=== PATIENT | female | born 1950 | race Caucasian/White ===

== ENCOUNTER 2024-03-09 12:30 | Emergency (ER) | payer MEDICARE, SELFPAY ==
[2024-03-09] VITALS (11 sets, daily range): BP systolic 95–194; BP diastolic 50–70; PULSE 54–103; RESP 17–28; TEMP 36.6; O2SAT 94–98
--- NOTE | ~2024-03-09 | CT_ITS ---
EXAMINATION: CT brain wo con DATE: 03/09/2024 12:44 INDICATION: Right hemiparesis. Aphasia. TECHNIQUE: Computed tomography (CT) of the head was performed without intravenous contrast. The mA wa s adjusted according to patient size. Iterative reconstruction technique was employed. The dose-lengt h product was 605.33 mGy-cm. COMPARISON: None FINDINGS: There are scattered areas of low attenuation in the cerebral white matter. There is no intr acranial hemorrhage, acute infarction, or abnormal intracranial mass lesion. The ventricles are galo l in size. There are likely changes of ocular lens replacement surgeries. There is a 3 mm calcificati on involving the left optic nerve sheath. There is mild mucosal thickening in the paranasal sinuses. The mastoid air cells are normal. IMPRESSION: 1. Moderate nonspecific cerebral white matter disease, which likely represents chronic small vessel i schemic disease. Reviewed, dictated and finalized at location A. IMPRESSION: 1. Moderate nonspecific cerebral white matter disease, which likely represents chronic small vessel ischemic disease.
--- NOTE | ~2024-03-09 | CT_ITS ---
EXAMINATION: CTA brain carotid DATE: 03/09/2024 12:52 INDICATION: Right hemiparesis. Aphasia. TECHNIQUE: Computed tomographic angiography (CTA) of the head was performed with 100 mL Omnipaque-350 intravenous contrast. CTA of the neck was performed with intravenous contrast. Automated exposure co ntrol and iterative reconstruction technique were employed. The dose-length product was 1133.83 mGy-c m. Maximum intensity projection and volume rendered 3D-reconstructions were created by the technologi on a separate workstation. COMPARISON: Head CT 03/09/2024 FINDINGS: HEAD CTA: There are scattered areas of low attenuation in the cerebral white matter. There is no intr acranial hemorrhage, acute infarction, or abnormal intracranial mass lesion. The ventricles are galo l in size. There is mucosal thickening in the paranasal sinuses. There are likely changes of ocular l ens replacement surgeries. The mastoid air cells are normal. The vertebral arteries are codominant. T here is no significant stenosis of basilar artery or the posterior cerebral arteries. There is no sig nificant stenosis of the intracranial internal carotid arteries or anterior or middle cerebral arteri es. Right A1 anterior cerebral artery segment is small, a normal variant. Anterior communicating tari ry is normal. The posterior communicating arteries are normal. There is no aneurysm. NECK CTA: There is a 14 mm nodule in right thyroid lobe, likely not clinically significant. There are no pathologically enlarged lymph nodes. There is no significant stenosis of the vertebral arteries. There is plaque in the proximal internal carotid arteries. There is 0% stenosis of the proximal right internal carotid artery relative to normal distal artery lumen diameter (NASCET criteria). There is 45% stenosis of the proximal left internal carotid artery relative to normal distal artery lumen diam eter. There is mild cervical spondylosis. IMPRESSION: 1. Moderate nonspecific cerebral white matter disease, which likely represents chronic small vessel i schemic disease. 2. No aneurysm or significant intracranial arterial stenosis. 3. 0% stenosis of the proximal right internal carotid artery relative to normal distal artery lumen d iameter (NASCET criteria). 4. 45% stenosis of the proximal left internal carotid artery relative to normal distal artery lumen d iameter. Reviewed, dictated and finalized at location A. IMPRESSION: 1. Moderate nonspecific cerebral white matter disease, which likely represents chronic small vessel ischemic disease. 2. No aneurysm or significant intracranial arterial stenosis. 3. 0% stenosis of the proximal right internal carotid artery relative to normal distal artery lumen diameter (NASCET criteria). 4. 45% stenosis of the proximal left internal carotid artery relative to normal distal artery lumen diameter.
--- NOTE | ~2024-03-09 | XR_ITS ---
Portable chest x-ray Comparison: 11/18/2012 Clinical History: Right-sided weakness Findings: Probable mild central congestive change and minimal bibasilar pulmonary edema. Cardiomedi astinal silhouette is stable. Bones and soft tissues are unremarkable. Impression: Mild central congestive change and minimal bibasilar pulmonary edema. Cardiomegaly. Reviewed, dictated and finalized at [facility]. Impression: Mild central congestive change and minimal bibasilar pulmonary edema. Cardiomegaly.
--- NOTE | 2024-03-09 12:36 | ED.NEUROSD ---
HPI - Neuro Symptoms/Deficit General Chief Complaint: Suspected CVA Stated Complaint: CVA Time Seen by Provider: 03/09/24 12:36 Source: patient, family and EMS Mode of arrival: EMS Limitations: physical limitation and clinical condition History of Present Illness HPI Narrative: Patient presents as a stroke activation. Patient's last known well was 11:55 a.m. as symptoms started acutely. Patient has a baseline history of leg weakness unclear reason/etiology. No prior known TIA or CVA. Patient was getting into the car with her and was using her arms to help move her legs which is typical. She then became weak on the right side. She is on aspirin but denies any other anticoagulation. Per EMS her initial blood pressure was 200/92. She had slurred speech which they note has been slightly improving. ED fast score was 3. She seemed to have expressive aphasia per their assessment. Related Data Home Medications Medication Instructions Recorded Confirmed vit C 250 mg-vit E 90 mg-zinc 40 1 tablet PO BID 07/23/21 12/09/23 mg-copper 1 ed-dlfcgj-rwwioi capsule (PreserVision AREDS-2) Allergies Allergy/AdvReac Type Severity Reaction Status Date / Time Iaiqhsr-MPP-OeP Reductase Allergy Unknown Difficulty Verified 12/09/23 10:20 Inhibitor Swallowing [Rkheyws-Ooq-Zny Reductase Inhibitor] [facility] Past Medical History Medical History Chronic renal insufficiency, stage III (moderate) Colonoscopy refused Essential hypertension Mammogram declined Mixed hyperlipidemia Peripheral vascular disease Right hand dominant Tobacco abuse Type 2 diabetes mellitus with stage 3 chronic kidney disease, without long-term current use of insulin Vitamin D deficiency Family History Family History Other Diabetes mellitus Family history of kidney disease Hypertension Social History Social History Smoking packs per day: 0.5 Smoking cigarettes per day: 10.0 Years smoked: 54 Smoking pack-years: 27.00 Smoking status: Former smoker (Quit 10/18/2022) Tobacco type: cigarettes Second hand tobacco smoke exposure: No Alcohol intake: never Substance use: never Substance use type: does not use Lack of Transportation: No Lack of Food: Never True Current Housing: I Have Housing Concerned About Future Housing: No Difficulty Paying Gas/Electric Bills: No Difficulty Paying for Meds: No Currently Unemployed: No Education: Trade/Vocational Certificate Difficulty w/ Childcare or Family Care: No Living arrangements: with family Gender identity (if verbalized by the patient): Female Sexual Orientation (if Verbalized by the Patient): Straight or Heterosexual Spiritual care concerns: No Agree to blood products: Yes Exam Narrative: GENERAL: Well-appearing, well-nourished, and in no acute distress. HEAD: Normocephalic, atraumatic. EYES: Non injected, non icteric. Extraocular movements intact. Questionable partial hemianopia ENT: Nares clear, no rhinorrhea or epistaxis. NECK: Supple. CHEST: Speaking in full sentences. No respiratory distress. HEART: Regular rate and rhythm. . ABDOMEN: Soft, nondistended. EXTREMITIES: No edema. SKIN: Warm, dry, no rash. NEURO: Focal deficits as below. Alert and oriented. Follows commands. Some word finding difficulty. PSYCH: Normal mood and affect. Course Vital Signs Vital signs: Vital Signs Pulse Rate 100 03/09/24 12:59 Respiratory Rate 24 H 03/09/24 12:59 Blood Pressure 159/55 H 03/09/24 12:59 Pulse Oximetry 94 03/09/24 12:59 Temperature 98 F 03/09/24 13:05 Pulse Rate 54 L 03/09/24 15:57 Respiratory Rate 18 03/09/24 15:57 Blood Pressure 95/54 L 03/09/24 15:57 Pulse Oximetry 98 03/09/24 15:57 Oxygen Delivery Room Air 0
--- NOTE | 2024-03-09 12:41 | ECG_ITS ---
SEE SCANNED COPY FOR CONFIRMED REPORT MTDD
[2024-03-09 12:44] LABS: Estimated Glomerular Filt Rate 37
[2024-03-09 12:51] LABS: Basophils Percent Auto 0.4 % (0.2-1.2); Eosinophils Absolute Auto 0.2 K/mm3 (0-0.3); Eosinophils Percent Auto 1.9 % (0-4.4); Hematocrit 47.2 % (37.0-47.0); Hemoglobin 14.8 g/dL (12.0-15.0); Immature Granulocyte Absolute 0.04 K/mm3 (0.00-0.031); Immature Granulocyte Percent A 0.4 % (0-0.5); Lymphocytes Absolute Auto 2.14 K/mm3 (0.9-3.2); Lymphocytes Percent Auto 21.9 % (18.3-44.2); Mean Corpuscular HGB Conc 31.4 g/dl (32-36); Mean Corpuscular Hemoglobin 30.3 pg (26-34); Mean Corpuscular Volume 96.7 fl (80-100); Mean Platelet Volume 10.2 fl (7.4-10.4); Monocytes Absolute Auto 0.6 K/mm3 (0.1-0.6); Monocytes Percent Auto 6.4 % (2.6-8.5); Neutrophils Absolute Auto 6.7 K/mm3 (1.3-6.7); Platelet Count Result 270 k/mm3 (150-375); Red Blood Count 4.88 M/mm3 (4.2-5.4); Red Cell Distribution Width 13.2 % (11.5-14.5); White Blood Count 9.8 K/mm3 (4.5-10.0)
--- NOTE | 2024-03-09 13:40 | PC.NURSE ---
Pt blood sugar was 166 upon arrival. Taken by this RN before pt was registered.
[2024-03-09 13:54] LABS: Alanine Aminotransferase 11 U/L (6-35); Albumin Level 4.1 g/dL (3.5-5.1); Alkaline Phosphatase 87 U/L (38-126); Anion Gap 11 mmol/L (4-12); Aspartate Amino Transferase 18 U/L (14-36); Bilirubin,Total 0.3 mg/dL (0.2-1.3); Blood Urea Nitrogen 28 mg/dL (7-17); Carbon Dioxide 23 mmol/L (22-30); Chloride 106 mmol/L (98-107); Estimated CRCL calculation 39 ml/min; Estimated Glomerular Filt Rate 44; Glucose 120 mg/dL (65-110); Potassium 4.1 mmol/L (3.4-5.0); Sodium 140 mmol/L (137-145)
--- NOTE | 2024-03-09 14:03 | PC.NURSE ---
RN told by pt that she feels like she wants to say something but is unable to find the words. I ask the pt if that is correct and she says yes. Unable to give me any further information.
[2024-03-09 14:05] LABS: Prothrombin Time 13.2 Seconds (11.1-14.7)
[2024-03-09 14:06] LABS: Partial Thromboplastin Time 27.5 Seconds (22.3-36.8)
[2024-03-09 14:15] LABS: Troponin I 0.047 ng/mL (0.000-0.034)
[2024-03-09 15:23] LABS: Cholesterol 173 mg/dL (0-200); HDL Direct 38 mg/dL; Triglycerides 241 mg/dL (<150)
[2024-03-09 15:34] LABS: LDL Cholesterol Direct 104 mg/dL
[2024-03-09] MEDS: LABETALOL HCL INJ 100 MG/20 ML VIAL 20 MG IV PUSH (15:40)
--- NOTE | 2024-03-09 15:59 | PC.NURSE ---
20mg labetalol administered by another RN. Not able to scan medication at this time due to too many users being in chart. Pt transfered to air evac at this time.
[2024-03-09 16:15] LABS: Hemoglobin A1C 6.3 % (<5.7)
== END 2024-03-09 16:33 | disposition short-term general hospital (02) ==
LOC: ANHED 13:02
PROVIDERS: Emergency Provider Student in an Organized Health Care Education/Training Program; PCP Family Medicine
DX: I21.4 Non-ST elevation (NSTEMI) myocardial infarction (principal); G81.91 Hemiplegia, unspecified affecting right dominant side; I12.9 Hypertensive chronic kidney disease with stage 1 through stage 4 chronic kidney disease, or unspecified chronic kidney disease; E11.22 Type 2 diabetes mellitus with diabetic chronic kidney disease; N18.30 Chronic kidney disease, stage 3 unspecified; E78.2 Mixed hyperlipidemia; E11.51 Type 2 diabetes mellitus with diabetic peripheral angiopathy without gangrene; I73.9 Peripheral vascular disease, unspecified; E55.9 Vitamin D deficiency, unspecified; Z87.891 Personal history of nicotine dependence; Z79.82 Long term (current) use of aspirin; Z79.84 Long term (current) use of oral hypoglycemic drugs; R90.82 White matter disease, unspecified; I51.7 Cardiomegaly; I65.22 Occlusion and stenosis of left carotid artery; R94.31 Abnormal electrocardiogram [ECG] [EKG]
CPT/HCPCS: 36415; 37195; 70450; 70496; 70498; 71045; 80053; 80061; 83036; 84484; 85025; 85610; 85730; 93005; 96374; 99285; J2997; Q9967

== ENCOUNTER 2024-05-30 09:49 | Outpatient (CLI) | payer MEDICARE, SELFPAY ==
--- NOTE | 2024-05-30 09:55 | ECHO_ITS ---
Patient Info Name: Obdulia Wyatt Age: 74 years : 1950 Gender: Female Ht: 62 in Wt: 176 lbs BSA: 1.90 m2 HR: 84 bpm BP: 100 / 44 mmHg Technical Quality: Fair Exam Date: 05/30/2024 10:22 AM Exam Location: Echo Lab Patient Status: Outpatient Admit Date: 05/30/2024 Staff Ordering Physician: Kayla Wayne MD Truck Switcher: Mike Dixon RDCS Attending Provider: Kayla Wayne MD Referring Physician: Tone MORALEZ; Exam Type: CA echo doppler color flow Study Info Indications I50.9 - Heart failure, unspecified Complete two-dimensional, color flow and Doppler transthoracic echocardiogram is performed. Summary 1. Complete two-dimensional, color flow and Doppler transthoracic echocardiogram is performed. 2. Left ventricular chamber dimension is normal. 3. Left ventricular systolic function is hyperdynamic, estimated at >70%. 4. The left ventricular diastolic function is grade I diastolic dysfunction. 5. E/e' 13 is mildly elevated. 6. Left atrial chamber dimension is mildly enlarged. 7. The aortic valve is not well visualized. Cannot determine number of aortic valve leaflets. 8. There is mild aortic valve sclerosis. 9. The mitral valve has moderately calcified annulus. Left Ventricle E/e' 13 is mildly elevated. Left ventricular chamber dimension is normal. Left ventricular systolic function is hyperdynamic, estimated at >70%. The left ventricular diastolic function is grade I diastolic dysfunction. Right Ventricle Right ventricular systolic function is normal and with normal TAPSE 1.8 cm. Right ventricular chamber dimension is normal. Left Atria Left atrial chamber dimension is mildly enlarged. Right Atria Right atrial chamber dimension is normal. Aortic Valve The aortic valve is not well visualized. Cannot determine number of aortic valve leaflets. There is no aortic valve stenosis based on valve area and gradients. There is mild aortic valve sclerosis. There is no aortic valve regurgitation. Pulmonic Valve There is no pulmonic regurgitation. Mitral Valve The mitral valve has moderately calcified annulus. There is no mitral valve stenosis. There is no mitral valve regurgitation. Tricuspid Valve There is no tricuspid valve regurgitation. Pericardium/Pleural There is no pericardial effusion. Inferior Vena Cava Normal inferior vena cava with >50% collapse upon inspiration consistent with normal right atrial pressure, 5 mmHg. Aorta The aortic root size at the sinus of Valsalva is normal. Left Ventricular Outflow Tract Name Value Normal LVOT 2D LVOT Diameter 1.9 cm LVOT Doppler LVOT Peak Gradient 7 mmHg LVOT Mean Gradient 3 mmHg LVOT VTI 26 cm LVOT VTI/AV VTI Ratio 0.9 LVOT Stroke Volume 76 ml LVOT CO 6.2 l/min LVOT CI 3.3 l/min/m2 Mitral Valve Name Value Normal MV Doppler ---------
== END 2024-05-30 09:50 | disposition home or self-care (01) ==
LOC: ANHCARD 09:53
PROVIDERS: PCP Family Medicine; Visit Provider Family Medicine
DX: I35.8 Other nonrheumatic aortic valve disorders (principal); I34.81 Nonrheumatic mitral (valve) annulus calcification
CPT/HCPCS: 93306

== ENCOUNTER 2024-07-17 10:51 | Inpatient (IN) | payer MEDICARE, SELFPAY ==
[2024-07-17] VITALS (30 sets, daily range): BP systolic 123–140; BP diastolic 52–76; PULSE 69–107; RESP 18–34; TEMP 36.1–36.7; O2SAT 95–100; BMI 32.0
--- NOTE | ~2024-07-17 | US_ITS ---
EXAMINATION: US venous doppler [facility] DATE: 07/17/2024 21:33 INDICATION: Hypoxic, history VTE . TECHNIQUE: Grayscale images without and with compression and Doppler images of the bilateral lower ex tremity veins were obtained. COMPARISON: 09/05/2015, 01/25/2014 FINDINGS: The right common femoral vein, profunda (deep) femoral vein, femoral vein, popliteal vein, peroneal v ein, posterior tibial veins, and greater saphenous vein are patent. 5.8 cm mixed echogenicity fluid c ollection in the right groin. The left common femoral vein, profunda (deep) femoral vein, femoral vein, popliteal vein, peroneal v ein, posterior tibial veins, and greater saphenous vein are patent. IMPRESSION: Patent bilateral lower extremity veins. No evidence of deep venous thrombosis. 5.8 cm complex fluid collection the right groin. Reviewed, dictated and finalized at location K.
--- NOTE | ~2024-07-17 | XR_ITS ---
EXAMINATION: [id number] DATE: 07/27/2024 13:06 INDICATION: Right pleural effusion status post thoracentesis. TECHNIQUE: Frontal and lateral views of the chest were obtained. COMPARISON: Chest CT 07/17/2024, chest single view 07/17/2024 FINDINGS: There is a diffuse interstitial pattern in the lungs. There are airspace opacities in right mid and lower lung zones and left lower lung zone. There are small pleural effusions. No pneumothora x. Cardiomegaly is noted. There is an electronic implant in left anterior chest wall. There are old h ealed bilateral rib fractures. IMPRESSION: 1. Diffuse lung disease, likely a combination of mild pulmonary edema and atelectasis. Pneumonia verónica ot be excluded. 2. Small pleural effusions. 3. Cardiomegaly. Reviewed, dictated and finalized at location A. IMPRESSION: 1. Diffuse lung disease, likely a combination of mild pulmonary edema and atele ctasis. Pneumonia cannot be excluded. 2. Small pleural effusions. 3. Cardiomegaly.
--- NOTE | ~2024-07-17 | CT_ITS ---
Clinical Indication: Shortness of breath CT Scan of the Chest with Contrast: Technique: Contiguous sections were acquired throughout the chest after intravenous administration of 100 cc of Omnipaque 350. Dose reduction technique was used on this scan by utilizing automated expos ure control and iterative reconstruction technique. The dose-length product (DLP) was 1018.06 mGy-cm. Findings: There is no evidence of any significant mediastinal, hilar or axillary lymphadenopathy. There is no f illing defect in the pulmonary arterial tree to suggest pulmonary embolus. There is no evidence of ao rtic dissection or aneurysm. No pericardial effusion. Large right pleural effusion is present. There is extensive, near complete right lower lobe atelectas is, the additional partial atelectasis of the right middle and upper lobes. Small left pleural effusi on present. Possible minimal pulmonary edema. Images through the upper abdomen reveal no abnormalities. Impression: No evidence of pulmonary embolus, aortic dissection, or aortic aneurysm. Large right pleural effusion with extensive atelectatic changes, especially right lower lobe, as deta iled above. Small left pleural effusion. Possible minimal pulmonary edema. Reviewed, dictated and finalized at [facility]. Impression: No evidence of pulmonary embolus, aortic dissection, or aortic aneurysm. Large right pleural effusion with extensive atelectatic changes, especially rig ht lower lobe, as detailed above. Small left pleural effusion. Possible minimal pulmonary edema.
--- NOTE | ~2024-07-17 | XR_ITS ---
XR chest 1V portable Ordering provider: Anabella Varner III, DO History: 74 years Female with . SOB. ON BIPAP . Comparison: March 09, 2024 FINDINGS: MEDIASTINUM: The cardiac silhouette is slightly enlarged. Congestive shirley. LUNGS: No pneumothorax. Bilateral interstitial changes with opacification the right mid and lower zone. Minimal opacification the left lung base. Right-sided pleural effusion. OTHER: No free air under the diaphragm. Degenerative spine. IMPRESSION: Bilateral pneumonia with highly suggestive underlying pulmonary edema. Right pleural effusion. Reviewed, dictated and finalized at location A. IMPRESSION: Bilateral pneumonia with highly suggestive underlying pulmonary edema. Right pl eural effusion.
--- NOTE | ~2024-07-17 | US_ITS ---
EXAMINATION: US thoracentesis DATE: 07/19/2024 15:35 INDICATION: Right pleural effusion TECHNIQUE: The procedure and its risks and benefits were discussed with the patient. Potential risks discussed included bleeding, infection, and pneumothorax. The patient understood the risks and agreed to proceed. The skin was prepped and draped in sterile fashion. 1% lidocaine was used for local anes thesia. Under ultrasound guidance, a 5 Fr catheter with trochar was advanced into the right pleural e ffusion. Fluid was aspirated. The catheter was removed, and a dressing was applied. There were no imm ediate complications. FINDINGS: Ultrasound images demonstrate a small complex right pleural effusion and the catheter within the flui d. There are several subtle linear internal septations which are best appreciated on real-time imagin g. IMPRESSION: 1. Small complex right pleural effusion with successful ultrasound-guided thoracentesis yielding 800 mL of reddish-brown fluid. Reviewed, dictated and finalized at location A. IMPRESSION: 1. Small complex right pleural effusion with successful ultrasound-guided thora centesis yielding 800 mL of reddish-brown fluid.
--- NOTE | 2024-07-17 11:00 | ECG_ITS ---
Test Date: 2024-07-17 11:02:24 Measurements Intervals [place] Rate: 102 P: 37 MT: 180 QRS: 9 QRSD: 76 T: 21 QT: 330 QTc: 432 Interpretive Statements SINUS TACHYCARDIA MINIMAL Q WAVES- INFERIOR LEADS BASELINE ARTIFACT- I, II, AVR, AVL, AVF, V3 BORDERLINE ECG No previous ECG available for comparison Electronically Signed On 07-17-2024 11:05:45 CDT by Santiago Davila D.O.
--- NOTE | 2024-07-17 11:07 | ED.SOB ---
HPI - SOB/Dyspnea General Chief Complaint: Shortness of Breath/Dyspnea Stated Complaint: resp distress Time Seen by Provider: 07/17/24 10:52 History of Present Illness HPI Narrative: Pt presents with SOB for a couple of days, much worse this morning. Per EMS pt was in respiratory distress on their arrival with RA oxygen sat of 78. They placed the patient on cpap and she improved. Per EMS pt had stroke history of history of saddle PE and cardiac arrest due to the PE. Pt denies CP now and says she feels much better on the mask. Related Data Home Medications Medication Instructions Recorded Confirmed aspirin 81 mg tablet,delayed 81 mg feeding tube DAILY 05/11/24 07/17/24 release cholecalciferol (vitamin D3) 125 125 mcg PO DAILY 05/11/24 06/06/24 mcg (5,000 unit) tablet melatonin 5 mg tablet 5 mg PO HS 05/11/24 06/06/24 polyethylene glycol 3350 17 gram 17 g PO DAILY PRN Constipation 05/11/24 07/17/24 oral powder packet (Miralax) Allergies Allergy/AdvReac Type Severity Reaction Status Date / Time Gghrmct-OSW-DrI Reductase Allergy Unknown Difficulty Verified 07/17/24 11:05 Inhibitor Swallowing [Txxbjla-Axq-Sme Reductase Inhibitor] Review of Systems Review of Systems: All systems reviewed & are unremarkable except as noted in HPI and below PMFSH Past Medical History Medical History (Updated 07/17/24 @ 16:26 by Alley Brantley PA-C) Acute left ROSHAN ischemic stroke (02/2024) Resultant right hemiparesis. Cardiac arrest (03/2024) Due to massive pulmonary embolism. Cerebrovascular accident Chronic renal insufficiency, stage III (moderate) Diastolic dysfunction Hyperdynamic LV systolic function with an EF estimated at greater than 70% with grade 1 diastolic dysfunction on echo in 05/2024. Essential hypertension Mixed hyperlipidemia Peripheral vascular disease Pulmonary emboli (03/2024) Tobacco abuse Type 2 diabetes mellitus Vitamin D deficiency Surgical History Surgical History (Updated 07/17/24 @ 16:24 by Alley Brantley PA-C) History of thrombectomy (03/2024) Saddle pulmonary emboli leading to cardiac arrest. Family History Family History Other Diabetes mellitus Family history of kidney disease Hypertension Social History Social History Social History: Surrogate medical decision maker: Ankit Wyatt, spouse. Code status: Full code. Smoking packs per day: 1 Smoking cigarettes per day: 20.0 Years smoked: 57 Smoking pack-years: 57.00 Smoking status: Former smoker Tobacco type: cigarettes Second hand tobacco smoke exposure: No Smoking end date: 06/18/24 Alcohol intake: never Substance use: never Substance use type: does not use Do You Feel Safe in your Home?: Yes Lack of Transportation: No Lack of Food: Never True Current Housing: I Have Housing Concerned About Future Housing: No Difficulty Paying Gas/Electric Bills: No Difficulty Paying for Meds: No Currently Unemployed: No Education: Associate Degree Difficulty w/ Childcare or Family Care: No Additional living arrangements comments: Lives with spouse in [place]. Spiritual care concerns: No Agree to blood products: Yes Exam Const: Nutritional Appearance: obese Orientation/consciousness: patient oriented x3 Limitations: other limitations (cpap) Chest: Chest palpation & inspection: normal inspection of the chest Resp: Auscultation: diminished lung sounds Cardio: Rate: regular rate Rhythm: regular rhythm GI: GI Palp: Yes Soft to palpation and No Tenderness to palpation present (GI) Skin: General skin exam: normal color Rashes: no rashes Wounds: no wounds Neuro: General: patient oriented x3, moves all extremities and CN's II-XI intact bilaterally Cranial nerves: Yes Nystagmus not present Extrem: General: no clubbing, cyanosis or edema Ps
[2024-07-17] MEDS: IPRATROPIUM 0.5 MG/ALBUTEROL SULFATE 2.5 MG AMPUL.NEB 3 ML INHALATION ×3 (11:18→20:54)
[2024-07-17 11:28] LABS: Basophils Percent Auto 0.3 % (0.2-1.2); Eosinophils Absolute Auto 0.2 K/mm3 (0-0.3); Eosinophils Percent Auto 1.5 % (0-4.4); Hematocrit 34.1 % (37.0-47.0); Hemoglobin 10.7 g/dL (12.0-15.0); Immature Granulocyte Absolute 0.03 K/mm3 (0.00-0.031); Immature Granulocyte Percent A 0.3 % (0-0.5); Lymphocytes Absolute Auto 0.98 K/mm3 (0.9-3.2); Lymphocytes Percent Auto 9.4 % (18.3-44.2); Mean Corpuscular HGB Conc 31.4 g/dl (32-36); Mean Corpuscular Volume 86.1 fl (80-100); Mean Platelet Volume 9.7 fl (7.4-10.4); Monocytes Absolute Auto 0.4 K/mm3 (0.1-0.6); Monocytes Percent Auto 4.2 % (2.6-8.5); Neutrophils Absolute Auto 8.8 K/mm3 (1.3-6.7); Neutrophils Percent Auto 84.3 % (45.5-73.1); Platelet Count Result 350 k/mm3 (150-375); Red Blood Count 3.96 M/mm3 (4.2-5.4); Red Cell Distribution Width 15.2 % (11.5-14.5); White Blood Count 10.4 K/mm3 (4.5-10.0)
[2024-07-17 11:39] LABS: INR 1.2; Prothrombin Time 15.8 Seconds (11.1-14.7)
[2024-07-17 11:44] LABS: Alanine Aminotransferase 14 U/L (6-35); Albumin Level 3.6 g/dL (3.5-5.1); Alkaline Phosphatase 74 U/L (38-126); Anion Gap 6 mmol/L (4-12); Aspartate Amino Transferase 27 U/L (14-36); Bilirubin,Total 0.1 mg/dL (0.2-1.3); Blood Urea Nitrogen 35 mg/dL (7-17); Calcium 9.6 mg/dL (8.4-10.2); Carbon Dioxide 31 mmol/L (22-30); Chloride 99 mmol/L (98-107); Estimated CRCL calculation 26 ml/min; Estimated Glomerular Filt Rate 31; Glucose 140 mg/dL (65-110); Potassium 4.6 mmol/L (3.4-5.0); Sodium 136 mmol/L (137-145)
[2024-07-17 11:55] LABS: NT Pro B Type Natriuretic Pept 590 pg/mL (19.9-100); Troponin I < 0.012 ng/mL (0.000-0.034)
[2024-07-17] MEDS: cefTRIAXone 2 GM/NS 100 ML 2 GM/100 ML BAG IVPB (13:34)
--- NOTE | 2024-07-17 13:55 | PM.IMHP ---
H&P: HPI History of Present Illness Date/Time: 07/17/24 13:55 Chief Complaint: Shortness of breath. Narrative: This is a 74-year-old female with history of stroke with right hemiparesis, cardiac arrest secondary to massive pulmonary emboli status post thrombectomy in March 2024, hypertension, chronic kidney disease, and type 2 diabetes mellitus who presented to the emergency department via EMS from home for evaluation of shortness of breath. The patient provides the following history and her provides additional information with the patient's permission. About 3 to 4 weeks ago she developed sinus congestion, cough, and shortness of breath and was prescribed azithromycin, cefdinir, and prednisone. She improved however about a week ago she once again started to feel short of breath, worse when lying flat. has been monitoring her pulse ox and reports that it is frequently in the upper 80s to low 90s. Today it was in the upper 70s on room air and even when encouraging deep breaths, her S p.o. did not go above 80%. With further questioning the patient tells me that she has been feeling weak and tired for the last 48 hours or so and mentions that on 2 occasions within the last month that she has complained of self-limiting substernal chest pain radiating through to the back without associated symptoms. It has been over a week since the last time she complained of that. She denies fever, chills, sweats, productive cough, syncope, near syncope, current chest pain, pleuritic pain, palpitations, dysphagia, concerns for aspiration, nausea, vomiting, lower extremity edema, and calf pain. She has not had any falls or trauma. Of note the patient has tube feedings at nighttime to supplement as her appetite and taste have been poor since her stroke. In the ED: Vital signs on arrival include a temperature of 97?, blood pressure 140/76, pulse 107, respiratory rate 34, SpO2 99% on CPAP (SpO2 was 78% on room air on EMS arrival to her home). Labs were significant for WBC count of 10.4, hemoglobin 10.7, platelet 350, sodium 136, BUN 35, creatinine 1.60, glucose 140, troponin less than 0.012, proBNP 590. Chest CTA was negative for pulmonary embolus, dissection, and aneurysm but did note a large right pleural effusion with extensive atelectatic changes and small left pleural effusion with possible minimal pulmonary edema. She was given a nebulizer treatment and azithromycin and ceftriaxone for possible pneumonia and she is being admitted in this setting for further treatment and evaluation. Review of Systems Review of Systems: 12 systems were reviewed and are negative except for as per HPI. [facility] Past Medical History Medical History Acute left ROSHAN ischemic stroke (02/2024) Resultant right hemiparesis. Cardiac arrest (03/2024) Due to massive pulmonary embolism. Cerebrovascular accident Chronic renal insufficiency, stage III (moderate) Diastolic dysfunction Hyperdynamic LV systolic function with an EF estimated at greater than 70% with grade 1 diastolic dysfunction on echo in 05/2024. Essential hypertension Mixed hyperlipidemia Peripheral vascular disease Pulmonary emboli (03/2024) Tobacco abuse Type 2 diabetes mellitus Vitamin D deficiency Surgical History Surgical History History of thrombectomy (03/2024) Saddle pulmonary emboli leading to cardiac arrest. Family History Family History Other Diabetes mellitus Family history of kidney disease Hypertension Social History Social History Social History: Surrogate medical decision maker: Ankit Wyatt, spouse. Code status: Full code. Smoking packs per day: 1 Smoking cigarettes per day: 20.0 Years smoked: 57 Smoking pack-years: 57.00 Smoking statu
[2024-07-17] MEDS: AZITHROMYCIN 500 MG/NS 250 ML 500 MG/250 ML BAG 250 MG IVPB (14:03)
--- NOTE | 2024-07-17 15:43 | PM.CNPUL ---
Assessment and Plan Assessment and plan (1) Acute respiratory failure with hypoxia: Code(s): J96.01 - Acute respiratory failure with hypoxia Status: Acute Assessment and Plan: This 74-year-old female, a long-time smoker, recently experienced CVA and a month later cardiac arrest related to a massive pulmonary embolism, for which she underwent a thrombectomy. She is chronically on a direct anticoagulant and presented with shortness of breath and hypoxemia. Diagnostic studies have revealed bilateral pleural effusions, with the left pleural effusion initially detected on a chest X-ray approximately 2 months ago. The right pleural effusion is relatively new. The patient does not exhibit symptoms consistent with pneumonia or empyema and does not appear septic. The etiology of the pleural effusions could be congestive heart failure, with trauma to the right ribcage and hemothorax being less likely, given the stable hematocrit over the last 2 months. The case was discussed with the hospitalist. She will remain on BiPAP support at 18/6 and a current FiO2 of 30% while awaiting arterial blood gases. We will continue with the current antibiotic regimen and hold the direct anticoagulant as she is scheduled for thoracentesis in the morning. A lower extremity study to rule out DVT should also be ordered. Further management will be based on the results of the thoracentesis. (2) Pleural effusion on right: Code(s): J90 - Pleural effusion, not elsewhere classified Status: Acute (3) Type 2 diabetes mellitus: Code(s): E11.9 - Type 2 diabetes mellitus without complications Status: Acute (4) Cerebrovascular accident (CVA) with hemiparesis: Status: Acute (5) CHF (congestive heart failure): Code(s): I50.9 - Heart failure, unspecified Status: Acute (6) Chronic renal insufficiency, stage III (moderate): Code(s): N18.30 - Chronic kidney disease, stage 3 unspecified Status: Acute (7) History of pulmonary embolism: Code(s): Z86.711 - Personal history of pulmonary embolism Status: Acute History of Present Illness History of Present Illness Consult date: 07/17/24 Chief complaint: Pneumonia Narrative: This 74-year-old female was brought into the emergency room due to shortness of breath and hypoxemia. The patient has a significant past medical history, including diabetes mellitus, hypertension, a previous ischemic stroke in February of this year, and a cardiac arrest related to a massive pulmonary embolism for which she underwent thrombectomy at [facility]. Information for this report was gathered after reviewing the patient's chart, talking to the patient, and also speaking with her , who was present at the bedside. Reportedly, the patient was found to have low oxyhemoglobin saturation at home and also noticed some shortness of breath. She had no fever, chills, hemoptysis, chest pain, palpitations, lower extremity edema, or recent trauma. She has been on direct anticoagulants post pulmonary embolism and lives at home with her . She has an indwelling G-tube through which she receives most of her daily calories, especially at night. She also takes some p.o. without a history of choking on food or coughing spells. The patient used to smoke 1 pack per day but has not been on any medications for lung disease. An echocardiogram a couple of years ago showed left ventricular diastolic dysfunction grade 2 and mild enlargement of the left atrium. The patient has not been on any treatment for congestive heart failure. Previous chest imaging studies done approximately 2 months ago showed a small left pleural effusion but no pleural effusion on the right. The patient was placed on BiPAP support at 12/6 along with supplemental oxygen and was transferred to the IMU. Workup in the emergency room with chest CT showed a large pleural effusion on the right associated with lung atelectasis, which is new since early May, an
[2024-07-17 16:06] LABS: Base Excess ABG 5.1 mEq/l (+/-2.0); Carboxyhemoglobin 0.8 % THb (0-2.0); Fractional Inspired Oxygen 30 %; HCO3 ABG 30.4 mEq/l (22.0-26.0); Methemoglobin ABG 0.2 %THb (0-1.5); Oxygen Content ABG 14.5 %vol (16.0-22.0); Oxygen Saturation ABG 94.8 % (95.0-100.0); Oxyhemoglobin 93.3 % THb (90.0-100.0); PCO2 ABG 48.2 mmHg (35.0-45.0); PO2 ABG 73.3 mmHg (80.0-100.0); PO2 FiO2 Ratio Arterial Blood 2.44 %; Reduced Hemoglobin 5.7 %THb (0-5.0); pH ABG 7.418 (7.350-7.450)
[2024-07-17 16:07] LABS: Device NON-INVASIVE VENT; Modified Allen's Test Pass; Non-Invasive Expiratory Pressure 6 CMH2O; Non-Invasive Inspiratory Pressure 12 CMH2O; Non-Invasive Vent Rate 18 /MIN; Site Drawn RIGHT RADIAL
--- NOTE | 2024-07-17 16:23 | ADMGEN ---
This patient, Obdulia Wyatt, was admitted to IMU Room 212-01 @ 1515. Patient/family oriented to hospital policies and general routines including ID bracelet, bed and alarms, visiting hours, pain management, procedures, bathroom and other care routines, personal items, smoking policy, room service/diet, and visiting hours. pt on BIPAP- spo2 95% Information on how to activate the Rapid Response Team has been discussed. Patient/Family are encouraged to report perceived risks to care and to ask questions if they do not understand what they are told or what they should do.
[2024-07-17 17:00] LABS: INR 1.3; Prothrombin Time 16.8 Seconds (11.1-14.7)
[2024-07-17 17:01] LABS: Albumin Level 3.5 g/dL (3.5-5.1); Amylase 69 U/L (30-110); Bilirubin,Total 0.1 mg/dL (0.2-1.3); Cholesterol 159 mg/dL (0-200); Glucose 104 mg/dL (65-110); Lactate Dehydrogenase 119 U/L (120-246); Triglycerides 103 mg/dL (<150)
[2024-07-17 17:13] LABS: Glucose Point of Care 97 mg/dl (65-105)
[2024-07-17 17:14] LABS: Troponin I < 0.012 ng/mL (0.000-0.034)
[2024-07-17 17:52] LABS: Procalcitonin 0.1 ng/mL
[2024-07-17 18:02] LABS: Influenza A QL RT-PCR Negative (Negative); Influenza B QL RT-PCR Negative (Negative); RSV RNA, RT-PCR Negative (Negative); SARS-CoV-2 RNA PCR Negative (Negative)
[2024-07-17 18:37] LABS: Glucose Point of Care 116 mg/dl (65-105)
[2024-07-17 18:38] LABS: MRSA (PCR) NOT DETECTED (NOT DETECTE)
[2024-07-17 21:54] LABS: Troponin I < 0.012 ng/mL (0.000-0.034)
[2024-07-17 23:44] LABS: Glucose Point of Care 131 mg/dl (65-105)
[2024-07-18] VITALS (27 sets, daily range): BP systolic 109–135; BP diastolic 48–66; PULSE 61–89; RESP 18–23; TEMP 36.4–37.2; O2SAT 91–100
[2024-07-18] MEDS: MIRTAZAPINE 7.5 MG TABLET PO ×2 (00:44→21:09)
[2024-07-18] MEDS: TERAZOSIN HCL 1 MG CAPSULE 4 MG FEED TUBE ×2 (00:44→21:09)
[2024-07-18] MEDS: IPRATROPIUM 0.5 MG/ALBUTEROL SULFATE 2.5 MG AMPUL.NEB 3 ML INHALATION ×4 (01:46→20:33)
[2024-07-18 05:31] LABS: Hematocrit 32.9 % (37.0-47.0); Mean Corpuscular HGB Conc 30.4 g/dl (32-36); Mean Corpuscular Hemoglobin 26.9 pg (26-34); Mean Corpuscular Volume 88.4 fl (80-100); Platelet Count Result 325 k/mm3 (150-375); Red Blood Count 3.72 M/mm3 (4.2-5.4); Red Cell Distribution Width 15.5 % (11.5-14.5); White Blood Count 7.7 K/mm3 (4.5-10.0)
[2024-07-18 05:46] LABS: Anion Gap 6 mmol/L (4-12); Blood Urea Nitrogen 33 mg/dL (7-17); Calcium 9.2 mg/dL (8.4-10.2); Carbon Dioxide 32 mmol/L (22-30); Chloride 99 mmol/L (98-107); Estimated CRCL calculation 25 ml/min; Estimated Glomerular Filt Rate 29; Glucose 86 mg/dL (65-110); Magnesium 2.5 mg/dL (1.6-2.3); Potassium 4.3 mmol/L (3.4-5.0); Sodium 137 mmol/L (137-145)
--- NOTE | 2024-07-18 09:39 | PHAR ---
The patient's home med of Preservision AREDS2 vitamin has been verified.
--- NOTE | 2024-07-18 10:05 | PC.NURSE ---
Pt to ultrasound for thoracentesis via stretcher.
--- NOTE | 2024-07-18 10:29 | PC.NURSE ---
Addendum entered by Cecelia Yeh RN 07/18/24 10:30: Eliquis was not resumed with home medications. Original Note: Updated Dr. Dupree that pt had taken her Eliquis yesterday morning prior to coming to the hospital. Eliquis requires a two day hold prior to a thoracentesis. Radiologist is holding pt's procedure at this time. Eliquis placed on hold by RN per ordres
--- NOTE | 2024-07-18 10:31 | PC.NURSE ---
Pt returned from [facility] via stretcher without having procedure completed due to taking Eliquis at home prior to hospitalization. MD ruiz
[2024-07-18 11:34] LABS: Glucose Point of Care 86 mg/dl (65-105)
[2024-07-18] MEDS: FERROUS SULFATE 325 MG TABLET DR BY MOUTH (11:46)
[2024-07-18] MEDS: PRESERVISION AREDS2 1 EACH PO (11:46)
[2024-07-18] MEDS: AZITHROMYCIN 500 MG/NS 250 ML 500 MG/250 ML BAG 250 MG IVPB (11:46)
[2024-07-18] MEDS: ESCITALOPRAM OXALATE 10 MG TABLET PO (11:46)
[2024-07-18] MEDS: amLODIPine BESYLATE 10 MG TABLET PO (11:46)
--- NOTE | 2024-07-18 12:24 | PM.PNPUL ---
Progress Note: A&P Assessment and Plan (1) Pleural effusion on right: Code(s): J90 - Pleural effusion, not elsewhere classified Status: Acute (2) Acute respiratory failure with hypoxia: Code(s): J96.01 - Acute respiratory failure with hypoxia Status: Acute Assessment and Plan: 74-year-old female presented with shortness of breath and hypoxemia. She was found to have bilateral pleural effusions with the effusion the right being large and new since early May. Left pleural effusion is smaller size and was also present on abdominal CT done in early May. Patient has been on antibiotics for possible lower respiratory tract infection. She received treatment with BiPAP support currently on just supplemental oxygen. WBC back into the normal range. Patient's history in conjunction with the diagnostic studies point towards congestive heart failure as the most likely diagnosis. Plan: Await thoracentesis. Use BiPAP support on p.r.n. basis. Further recommendations depending upon the results of thoracentesis; continue with current antibiotic regimen for now. (3) Type 2 diabetes mellitus: Code(s): E11.9 - Type 2 diabetes mellitus without complications Status: Acute (4) Cerebrovascular accident (CVA) with hemiparesis: Status: Acute (5) Right hemiparesis: Code(s): G81.91 - Hemiplegia, unspecified affecting right dominant side Status: Acute (6) CHF (congestive heart failure): Code(s): I50.9 - Heart failure, unspecified Status: Acute Subjective Date/time seen: 07/18/24 12:24 Interval history: Patient stated that she is doing better. She used BiPAP support last night but currently on just supplemental oxygen. She has no fever chills hemoptysis chest pain. Review of Systems Review of Systems: All systems reviewed & are unremarkable except as noted in HPI and below (HPI and below) Exam Narrative: GENERAL APPEARANCE: Well developed, well nourished, alert and cooperative, and appears to be in mild respiratory distress while on BiPAP support SKIN: Inspection of the skin reveals no rashes, ulcerations or petechiae. HEENT: Sclerae anicteric and conjunctivae pink and moist. Extraocular movements were intact. NECK: Supple. There was no thyroid enlargement, and no tenderness, or masses were felt. CHEST: Normal AP diameter and normal contour without any kyphoscoliosis. LUNGS: Decreased breath sounds both bases posteriorly worse on right, no wheezing CARDIAC: There was a regular rate and rhythm without any murmurs. ABDOMEN: Soft and nontender with normal bowel sounds. There was no organomegaly. LYMPH NODES: No lymphadenopathy was appreciated in the neck. EXTREMITIES: No cyanosis, clubbing; old stasis dermatitis a changes in lower extremities no edema NEUROLOGIC: Alert and oriented x 3. Normal affect. Objective Data Vital Signs Vital Signs: Vital Signs - 24 hr 07/17/24 13:16 07/17/24 13:58 07/17/24 13:58 Temperature Pulse Rate 83 80 80 Respiratory Rate 24 H 22 H 19 Blood Pressure 123/69 Pulse Oximetry 97 98 Oxygen Delivery BiPAP Oxygen Flow Rate Fraction of Inspired Oxygen 07/17/24 13:58 07/17/24 12:30 07/17/24 12:45 Temperature Pulse Rate 88 83 Respiratory Rate 19 20 Blood Pressure Pulse Oximetry 98 99 99 Oxygen Delivery BiPAP Oxygen Flow Rate Fraction of Inspired Oxygen 40 07/17/24 13:16 07/17/24 13:20 07/17/24 13:31 Temperature Pulse Rate 95 83 84 Respiratory Rate 27 H 32 H 18 Blood Pressure 123/69 125/52 L Pulse Oximetry 97 98 99 Oxygen Delivery Oxygen Flow Rate Fraction of Inspired Oxygen 07/17/24 13:32 07/17/24 13:45 07/17/24 14:00 Temperature Pulse Rate 80 81 84 Respiratory Rate 25 H 18 24 H Blood Pressure Pulse Oximetry 98 99 100 Oxygen Delivery Oxygen Flow Rate Fraction of Inspired Oxygen 07/17/24 14:17 07/17/24 15:21 07/17/24 15:21 Temperature Puls
[2024-07-18 16:20] LABS: Glucose Point of Care 180 mg/dl (65-105)
--- NOTE | 2024-07-18 17:52 | PM.IMPN ---
Progress Note: A&P Assessment and Plan (1) Acute respiratory failure with hypoxia: Code(s): J96.01 - Acute respiratory failure with hypoxia Status: Acute (2) Pleural effusion on right: Code(s): J90 - Pleural effusion, not elsewhere classified Status: Acute (3) Chronic renal insufficiency, stage III (moderate): Code(s): N18.30 - Chronic kidney disease, stage 3 unspecified Status: Acute (4) Essential hypertension: Code(s): I10 - Essential (primary) hypertension Status: Acute (5) Type 2 diabetes mellitus: Code(s): E11.9 - Type 2 diabetes mellitus without complications Status: Acute (6) Diastolic dysfunction: Code(s): I51.89 - Other ill-defined heart diseases Status: Acute Plan CT chest showed a right large pleural effusion Status post thoracentesis Follow up pleural fluid studies Titrate oxygen. Slide scale insulin with Accu-Cheks and adjust with clinical course Title medications put clinical course. DVT prophylaxis subQ Lovenox. Subjective Date/time seen: 07/18/24 17:52 Interval history: Comfortable at bedside awaiting pleural fluid results Review of Systems Review of Systems: 12 systems were reviewed and are negative except for as per HPI. Exam Narrative: General: Mildly ill-appearing female in the semi-Haque position in bed on BiPAP. Weight: 79.4 kg. BMI: 32.0. HEENT: PERRL, EOMI. Sclera anicteric. Oral mucosa appears tacky through the BiPAP mask. Neck: Supple. No jugular venous distention. Respiratory: BiPAP is in place and she is tolerating it well. She is able to speak freely through the mask. Lung sounds are significantly diminished at the right base. Cardiovascular: Regular rate and rhythm with S1-S2. Gastrointestinal: Abdomen is soft, nontender, and nondistended with positive bowel sounds. Skin: Warm and dry. Extremities: No cyanosis or clubbing. Trace wander ankle edema bilaterally. No palpable knots or cords. Negative Zeny sign bilaterally. Neurological: Alert. Cranial nerves 2-12 are grossly intact. Speech is clear. Right upper extremity is weak and slightly contracted. She is unable to move the right lower leg. Psychiatric: Pleasant and cooperative with appropriate mood and affect. Objective Data Vital Signs Vital Signs: Vital Signs - 24 hr 07/17/24 20:29 07/17/24 20:54 07/17/24 20:54 Temperature 98.1 F Pulse Rate 69 88 78 Respiratory Rate 22 H 18 Blood Pressure 140/57 L Pulse Oximetry 98 96 Oxygen Delivery Nasal Cannula Oxygen Flow Rate 2 Fraction of Inspired Oxygen 28 07/17/24 21:11 07/17/24 20:30 07/17/24 20:00 Temperature Pulse Rate 79 82 Respiratory Rate 18 Blood Pressure Pulse Oximetry 95 Oxygen Delivery Nasal Cannula Oxygen Flow Rate 2 Fraction of Inspired Oxygen 07/17/24 22:00 07/17/24 23:56 07/17/24 23:00 Temperature 97.6 F Pulse Rate 79 77 Respiratory Rate 19 Blood Pressure 129/55 L Pulse Oximetry 98 98 Oxygen Delivery BiPAP Oxygen Flow Rate Fraction of Inspired Oxygen 30 07/18/24 00:00 07/18/24 01:47 07/18/24 01:49 Temperature Pulse Rate 63 63 63 Respiratory Rate 23 H 23 H Blood Pressure Pulse Oximetry 98 Oxygen Delivery BiPAP Oxygen Flow Rate Fraction of Inspired Oxygen 07/18/24 01:53 07/18/24 01:58 07/18/24 04:00 Temperature Pulse Rate 65 63 Respiratory Rate 19 Blood Pressure Pulse Oximetry 100 Oxygen Delivery BiPAP Oxygen Flow Rate Fraction of Inspired Oxygen 30 07/18/24 04:21 07/18/24 04:00 07/18/24 06:00 Temperature 97.6 F Pulse Rate 71 61 65 Respiratory Rate 21 H Blood Pressure 109/66 Pulse Oximetry 100 Oxygen Delivery Oxygen Flow Rate Fraction of Inspired Oxygen 07/18/24 05:05 07/18/24 07:29 07/18/24 07:29 Temperature Pulse Rate 69 84 Respiratory Rate 21 H 20 Blood Pressure Pulse Oximetry 99 97 Oxygen Deliver
[2024-07-19] VITALS (17 sets, daily range): BP systolic 120–140; BP diastolic 48–56; PULSE 67–91; RESP 18–20; TEMP 36.7–37.3; O2SAT 90–96
--- NOTE | 2024-07-19 | ECHO_ITS ---
Patient Info Name: Obdulia Wyatt Age: 74 years : 1950 Gender: Female Ht: 62 in Wt: 175 lbs BSA: 1.90 m2 HR: 67 bpm BP: 125 / 56 mmHg Technical Quality: Poor Exam Date: 07/19/2024 1:17 PM Exam Location: Echo Lab Patient Status: Inpatient Admit Date: 07/17/2024 Staff Ordering Physician: Nicky Dupree MD Manhole Builder: Mike Dixon RDCS Attending Provider: Jose Powers MD Exam Type: CA echo doppler color flow Study Info Indications I31.3 - Pericardial effusion (noninflammatory) Complete two-dimensional, color flow and Doppler transthoracic echocardiogram is performed. Reason for Poor Study: poor patient cooperation Summary 1. Complete two-dimensional, color flow and Doppler transthoracic echocardiogram is performed. 2. Left ventricular chamber dimension is normal. 3. Left ventricular systolic function is normal, estimated at 65-70%. 4. The left ventricular diastolic function is abnormal. 5. E/e' 23 is elevated. 6. Left atrial chamber dimension is moderately enlarged. 7. There is mild aortic valve sclerosis. 8. The mitral valve has severe calcified posterior annulus. 9. There is trivial pericardial effusion. Left Ventricle E/e' 23 is elevated. Left ventricular chamber dimension is normal. Left ventricular systolic function is normal, estimated at 65-70%. The left ventricular diastolic function is abnormal. Right Ventricle Right ventricular systolic function is normal and with normal TAPSE 2.2 cm. Right ventricular chamber dimension is normal. Left Atria Left atrial chamber dimension is moderately enlarged. Right Atria Right atrial chamber dimension is normal. Aortic Valve The aortic valve is trileaflet. There is mild aortic valve sclerosis. There is no aortic valve stenosis. There is no aortic valve regurgitation. Pulmonic Valve There is no pulmonic regurgitation. Mitral Valve The mitral valve has severe calcified posterior annulus. There is no mitral valve stenosis. There is no mitral valve regurgitation. Tricuspid Valve There is no tricuspid valve regurgitation. Pericardium/Pleural There is trivial pericardial effusion. Inferior Vena Cava Normal inferior vena cava with >50% collapse upon inspiration consistent with normal right atrial pressure, 5 mmHg. Aorta The aortic root size at the sinus of Valsalva is normal. Left Ventricular Outflow Tract Name Value Normal LVOT 2D LVOT Diameter 2.0 cm LVOT Doppler LVOT Peak Gradient 6 mmHg LVOT Mean Gradient 3 mmHg LVOT VTI 23 cm LVOT VTI/AV VTI Ratio 0.7 LVOT Stroke Volume 73 ml LVOT CO 6.2 l/min LVOT CI 3.3 l/min/m2 Pulmonic Valve Name Value Normal PV Doppler PV Peak Gradient 4 mmHg Mitral Valve
--- NOTE | 2024-07-19 00:22 | PC.NURSE ---
Patient not tolerating BiPap despite multiple attempts to reposition. RN removed BiPap and placed patient on 1LNC. RN explained to both patient and patient's that should her respiratory status decline the BiPap may become critically necessary. Both were agreeable to trying again if that became the case. RN called EDENILSON Guy to inform her of the change.
[2024-07-19 01:33] LABS: Glucose Point of Care 99 mg/dl (65-105)
[2024-07-19] MEDS: IPRATROPIUM 0.5 MG/ALBUTEROL SULFATE 2.5 MG AMPUL.NEB 3 ML INHALATION ×3 (02:03→20:40)
[2024-07-19 06:33] LABS: Glucose Point of Care 100 mg/dl (65-105)
[2024-07-19] MEDS: amLODIPine BESYLATE 10 MG TABLET PO (09:25)
[2024-07-19] MEDS: ESCITALOPRAM OXALATE 10 MG TABLET PO (09:25)
[2024-07-19] MEDS: PRESERVISION AREDS2 1 EACH PO ×2 (09:25→18:23)
[2024-07-19] MEDS: FERROUS SULFATE 325 MG TABLET DR BY MOUTH (09:25)
[2024-07-19] MEDS: AZITHROMYCIN 500 MG/NS 250 ML 500 MG/250 ML BAG 250 MG IVPB (11:57)
[2024-07-19 12:10] LABS: Iron 37 ug/dL (37-170)
[2024-07-19 12:19] LABS: Percent Iron Saturation 13 % (20-50)
[2024-07-19 12:27] LABS: Glucose Point of Care 161 mg/dl (65-105)
--- NOTE | 2024-07-19 14:20 | PC.NURSE ---
Pt to ultrasound via bed for thoracentesis
--- NOTE | 2024-07-19 14:25 | PM.IMPN ---
Progress Note: A&P Assessment and Plan (1) Acute respiratory failure with hypoxia: Code(s): J96.01 - Acute respiratory failure with hypoxia Status: Acute (2) Pleural effusion on right: Code(s): J90 - Pleural effusion, not elsewhere classified Status: Acute (3) Chronic renal insufficiency, stage III (moderate): Code(s): N18.30 - Chronic kidney disease, stage 3 unspecified Status: Acute (4) Essential hypertension: Code(s): I10 - Essential (primary) hypertension Status: Acute (5) Type 2 diabetes mellitus: Code(s): E11.9 - Type 2 diabetes mellitus without complications Status: Acute (6) Diastolic dysfunction: Code(s): I51.89 - Other ill-defined heart diseases Status: Acute Plan CT chest showed a right large pleural effusion For thoracentesis today Follow up pleural fluid studies Titrate oxygen. Slide scale insulin with Accu-Cheks and adjust with clinical course Titrate medications par clinical course. DVT prophylaxis subQ Lovenox. Subjective Date/time seen: 07/19/24 14:25 Interval history: Comfortable at bedside unable to do thoracentesis yesterday because she took her Eliquis prior to presentation and needed to be off 48 hours For thoracentesis today Review of Systems Review of Systems: 12 systems were reviewed and are negative except for as per HPI. Exam Narrative: General: Mildly ill-appearing female in the semi-Haque position in bed on BiPAP. Weight: 79.4 kg. BMI: 32.0. HEENT: PERRL, EOMI. Sclera anicteric. Oral mucosa appears tacky through the BiPAP mask. Neck: Supple. No jugular venous distention. Respiratory: BiPAP is in place and she is tolerating it well. She is able to speak freely through the mask. Lung sounds are significantly diminished at the right base. Cardiovascular: Regular rate and rhythm with S1-S2. Gastrointestinal: Abdomen is soft, nontender, and nondistended with positive bowel sounds. Skin: Warm and dry. Extremities: No cyanosis or clubbing. Trace wander ankle edema bilaterally. No palpable knots or cords. Negative Zeny sign bilaterally. Neurological: Alert. Cranial nerves 2-12 are grossly intact. Speech is clear. Right upper extremity is weak and slightly contracted. She is unable to move the right lower leg. Psychiatric: Pleasant and cooperative with appropriate mood and affect. Objective Data Vital Signs Vital Signs: Vital Signs - 24 hr 07/18/24 15:32 07/18/24 16:00 07/18/24 19:42 Temperature 98.6 F 98.9 F Pulse Rate 80 87 85 Respiratory Rate 20 20 Blood Pressure 121/48 L 135/50 L Pulse Oximetry 93 92 Oxygen Delivery Oxygen Flow Rate 07/18/24 20:33 07/18/24 20:37 07/18/24 23:12 Temperature Pulse Rate 82 73 Respiratory Rate 20 21 H Blood Pressure Pulse Oximetry 91 97 Oxygen Delivery Room Air BiPAP Oxygen Flow Rate 07/18/24 20:00 07/19/24 00:00 07/18/24 20:00 Temperature Pulse Rate 81 78 Respiratory Rate Blood Pressure Pulse Oximetry 97 Oxygen Delivery Room Air Oxygen Flow Rate 07/19/24 00:20 07/19/24 01:32 07/19/24 02:05 Temperature 98.2 F Pulse Rate 69 79 Respiratory Rate 20 20 Blood Pressure 125/56 L Pulse Oximetry 95 96 Oxygen Delivery Nasal Cannula Oxygen Flow Rate 1 07/18/24 20:41 07/19/24 02:11 07/19/24 04:00 Temperature Pulse Rate 78 68 67 Respiratory Rate 20 19 Blood Pressure Pulse Oximetry Oxygen Delivery Oxygen Flow Rate 07/19/24 07:45 07/19/24 07:45 07/19/24 07:48 Temperature 98.1 F Pulse Rate 74 82 Respiratory Rate 20 20 Blood Pressure 137/55 L Pulse Oximetry 92 92 Oxygen Delivery Nasal Cannula Oxygen Flow Rate 1 07/19/24 07:56 07/19/24 08:00 Temperature Pulse Rate 81 Respiratory Rate 20 Blood Pressure Pulse Oximetry 94 Oxygen Delivery Nasal Cannula Oxygen Flow Rate 1 Intake/Output Intake/Output: Intake & Output
--- NOTE | 2024-07-19 15:01 | PCRCNOTE ---
Pt. is off the floor for a procedure; tx not given at this time.
--- NOTE | 2024-07-19 15:19 | PC.NURSE ---
Pt returned from ultrasound via bed. No issues noted
[2024-07-19 15:25] LABS: pH Pleural Fluid > 7.500 (7.210-7.500)
[2024-07-19 15:57] LABS: Pleural fluid source Pleural fluid
[2024-07-19 15:58] LABS: Appearance Pleural Fluid Cloudy (Clear); Color Pleural Fluid Brown (Colorless); Nucleated Cell Pleural Fluid 1530 /uL (0-1000)
[2024-07-19 15:59] LABS: RBC Pleural Fluid 28000 /uL (0-10000)
[2024-07-19 16:13] LABS: Lymphocytes Pleural Fluid 74 %; Macrophages Pleural Fluid 7 %; Monocytes Pleural Fluid 15 %; Neutrophils Pleural Fluid 2 % (0-25)
[2024-07-19 16:14] LABS: Mesothelial Cells Pleural Flui 2 %
[2024-07-19 16:17] LABS: NT Pro B Type Natriuretic Pept 532 pg/mL (19.9-100)
[2024-07-19 16:28] LABS: Glucose Point of Care 102 mg/dl (65-105)
[2024-07-19 19:19] LABS: Glucose Point of Care 161 mg/dl (65-105)
[2024-07-19 20:36] LABS: Glucose Point of Care 185 mg/dl (65-105)
[2024-07-19] MEDS: INSULIN GLARGINE (*BKC) 100 UNITS/ML 15 UNITS SUB-Q (21:00)
[2024-07-19] MEDS: MIRTAZAPINE 7.5 MG TABLET PO (21:00)
[2024-07-19] MEDS: TERAZOSIN HCL 1 MG CAPSULE 4 MG FEED TUBE (21:00)
[2024-07-19] MEDS: polyethylene glycoL 3350 17 GM POWD.PACK PO (21:27)
--- NOTE | 2024-07-19 23:29 | PC.NURSE ---
2325 PT TRANSFERRED FROM IMU 212 VIA BED. AT BEDSIDE WITH PT BELONGINGS. BIPAP MACHINE ALSO BROUGHT OVER WITH PT
[2024-07-20] VITALS (13 sets, daily range): BP systolic 123–131; BP diastolic 45–50; PULSE 66–81; RESP 18–20; TEMP 36.3–36.8; O2SAT 87–94
[2024-07-20] MEDS: IPRATROPIUM 0.5 MG/ALBUTEROL SULFATE 2.5 MG AMPUL.NEB 3 ML INHALATION ×4 (02:44→21:50)
[2024-07-20 06:06] LABS: Basophils Percent Auto 0.3 % (0.2-1.2); Eosinophils Absolute Auto 0.4 K/mm3 (0-0.3); Eosinophils Percent Auto 4.9 % (0-4.4); Hematocrit 33.7 % (37.0-47.0); Immature Granulocyte Absolute 0.01 K/mm3 (0.00-0.031); Immature Granulocyte Percent A 0.1 % (0-0.5); Lymphocytes Absolute Auto 1.16 K/mm3 (0.9-3.2); Lymphocytes Percent Auto 16.2 % (18.3-44.2); Mean Corpuscular HGB Conc 29.7 g/dl (32-36); Mean Corpuscular Hemoglobin 25.8 pg (26-34); Mean Corpuscular Volume 87.1 fl (80-100); Mean Platelet Volume 9.9 fl (7.4-10.4); Monocytes Absolute Auto 0.6 K/mm3 (0.1-0.6); Monocytes Percent Auto 8.7 % (2.6-8.5); Neutrophils Percent Auto 69.8 % (45.5-73.1); Platelet Count Result 308 k/mm3 (150-375); Red Blood Count 3.87 M/mm3 (4.2-5.4); Red Cell Distribution Width 15.6 % (11.5-14.5); White Blood Count 7.1 K/mm3 (4.5-10.0)
[2024-07-20 06:24] LABS: Alanine Aminotransferase 11 U/L (6-35); Albumin Level 3.3 g/dL (3.5-5.1); Alkaline Phosphatase 61 U/L (38-126); Anion Gap 4 mmol/L (4-12); Aspartate Amino Transferase 23 U/L (14-36); Bilirubin,Total 0.2 mg/dL (0.2-1.3); Blood Urea Nitrogen 24 mg/dL (7-17); Calcium 9.2 mg/dL (8.4-10.2); Carbon Dioxide 33 mmol/L (22-30); Chloride 100 mmol/L (98-107); Estimated CRCL calculation 26 ml/min; Estimated Glomerular Filt Rate 31; Glucose 91 mg/dL (65-110); Magnesium 2.3 mg/dL (1.6-2.3); Sodium 137 mmol/L (137-145)
[2024-07-20 06:39] LABS: Anisocytosis 1+; Platelet Estimate Adequate (Adequate); Schistocytes None Seen
--- NOTE | 2024-07-20 08:35 | PM.PNPUL ---
Progress Note: A&P Assessment and Plan (1) Pleural effusion on right: Code(s): J90 - Pleural effusion, not elsewhere classified Status: Acute (2) Acute respiratory failure with hypoxia: Code(s): J96.01 - Acute respiratory failure with hypoxia Status: Acute Assessment and Plan: A 74-year-old female presented with shortness of breath and hypoxemia. She was found to have bilateral pleural effusions, with a large new effusion on the right side since early May and a smaller effusion on the left side that was also present on an abdominal CT from early May. The patient has been on antibiotics for a possible lower respiratory tract infection. She initially received BiPAP support and is currently on supplemental oxygen. Her white blood cell count has returned to the normal range. She underwent thoracentesis last night. Preliminary pleural fluid analysis shows a lymphocytic pleural effusion with a significant number of red cells; the pH is not consistent with empyema. Further testing to differentiate between transudate and exudate is pending. Based on her clinical history and preliminary pleural fluid analysis, the differential diagnosis includes congestive heart failure, previous chest trauma, complicated parapneumonic effusion related to recent lower respiratory tract infection, and less likely, malignancy. An echocardiogram performed yesterday revealed left ventricular diastolic dysfunction, as indicated by a significantly elevated E/E' ratio. The presence of bilateral pleural effusions may suggest that CHF is the underlying pathology. Conversely, the presence of septations on thoracic ultrasound may indicate previous trauma or a complicated parapneumonic effusion related to recent lower respiratory tract infection. Plan: Discontinue antibiotics at this point. The patient should restart the direct anticoagulant therapy tomorrow. Discontinue supplemental oxygen and monitor O2 saturation on room air today. May consider Cardiology consultation for left ventricular diastolic dysfunction. Conduct an ApneaLink study on room air tonight to determine if the patient requires supplemental oxygen at home. Anticipate discharge home in the morning. (3) Type 2 diabetes mellitus: Code(s): E11.9 - Type 2 diabetes mellitus without complications Status: Acute (4) Cerebrovascular accident (CVA) with hemiparesis: Status: Acute (5) Right hemiparesis: Code(s): G81.91 - Hemiplegia, unspecified affecting right dominant side Status: Acute (6) CHF (congestive heart failure): Code(s): I50.9 - Heart failure, unspecified Status: Acute Subjective Date/time seen: 07/20/24 08:35 Interval history: Patient has no new respiratory symptoms. Has been on just supplemental oxygen via nasal cannula over the last 36 hours. Not using BiPAP support remains fully awake. Review of Systems Review of Systems: All systems reviewed & are unremarkable except as noted in HPI and below (HPI and below) Exam Narrative: GENERAL APPEARANCE: Well developed, well nourished, alert and cooperative, and appears to be in mild respiratory distress while on BiPAP support SKIN: Inspection of the skin reveals no rashes, ulcerations or petechiae. HEENT: Sclerae anicteric and conjunctivae pink and moist. Extraocular movements were intact. NECK: Supple. There was no thyroid enlargement, and no tenderness, or masses were felt. CHEST: Normal AP diameter and normal contour without any kyphoscoliosis. LUNGS: Crackles at bases posteriorly worse on right, no wheezing CARDIAC: There was a regular rate and rhythm without any murmurs. ABDOMEN: Soft and nontender with normal bowel sounds. There was no organomegaly. LYMPH NODES: No lymphadenopathy was appreciated in the neck. EXTREMITIES: No cyanosis, clubbing; old stasis dermatitis a changes in lower extremities no edema NEUROLOGIC: Alert and oriented x 3. Normal affect. Objective Data
[2024-07-20 08:39] LABS: Glucose Point of Care 87 mg/dl (65-105)
[2024-07-20] MEDS: IRON SUCROSE COMPLEX 400 MG, IRON SUCROSE COMPLEX 100 MG in SODIUM CHLORIDE 0.9% IV 250 ML 78.57 MG IVPB (09:08)
[2024-07-20] MEDS: FERROUS SULFATE 325 MG TABLET DR BY MOUTH (09:08)
[2024-07-20] MEDS: amLODIPine BESYLATE 10 MG TABLET PO (09:08)
[2024-07-20] MEDS: ESCITALOPRAM OXALATE 10 MG TABLET PO (09:08)
[2024-07-20] MEDS: PRESERVISION AREDS2 1 EACH PO ×2 (09:09→16:51)
[2024-07-20] MEDS: polyethylene glycoL 3350 17 GM POWD.PACK PO (09:20)
--- NOTE | 2024-07-20 11:42 | PM.IMPN ---
Progress Note: A&P Assessment and Plan (1) Acute respiratory failure with hypoxia: Code(s): J96.01 - Acute respiratory failure with hypoxia Status: Acute Assessment and Plan: from pleural effusion CT chest showed bilateral pleural effusions markedly on the right S/P thoracentesis with 800cc removed pleural fluid showed cloudy reddish brown, with lymphocytosis and elevated RBC US thorax showed small complex right pleural effusion pH >7.5 Follow up remaining pleural fluid studies Pulmonology eval noted Cardiology for possible CHF as a etiology of the pleural effusions (2) Pleural effusion on right: Code(s): J90 - Pleural effusion, not elsewhere classified Status: Acute Assessment and Plan: continue care as above ECHO showed grade I diastolic (3) Chronic renal insufficiency, stage III (moderate): Code(s): N18.30 - Chronic kidney disease, stage 3 unspecified Status: Acute Assessment and Plan: Cr 1.6 stable (4) Essential hypertension: Code(s): I10 - Essential (primary) hypertension Status: Acute Assessment and Plan: titrate home meds with clinical course (5) Type 2 diabetes mellitus: Code(s): E11.9 - Type 2 diabetes mellitus without complications Status: Acute Assessment and Plan: SSI with accucheks, and adjust with clinical course (6) Diastolic dysfunction: Code(s): I51.89 - Other ill-defined heart diseases Status: Acute Assessment and Plan: ECHO reviewed cardiology consulted labs noted they are unable to do pleural fluid BNP awaiting cardiology eval. Plan For ApneaLink study tonight got nighttime oxygen requirement Pulmonology recommended restarting Home anticoagulation tomorrow DVT prophylaxis subQ Lovenox. Subjective Date/time seen: 07/20/24 11:42 Interval history: Comfortable on room air Pleural fluid demonstrates markedly elevated RBCs and lymphocytes, PH 7.5 and fluid cloudy brown. other pleural studies still pending US thorax showed septations Review of Systems Review of Systems: 12 systems were reviewed and are negative except for as per HPI. Exam Narrative: General: Mildly ill-appearing female in the semi-Haque position in bed on BiPAP. Weight: 79.4 kg. BMI: 32.0. HEENT: PERRL, EOMI. Sclera anicteric. Oral mucosa appears tacky through the BiPAP mask. Neck: Supple. No jugular venous distention. Respiratory: BiPAP is in place and she is tolerating it well. She is able to speak freely through the mask. Lung sounds are significantly diminished at the right base. Cardiovascular: Regular rate and rhythm with S1-S2. Gastrointestinal: Abdomen is soft, nontender, and nondistended with positive bowel sounds. Skin: Warm and dry. Extremities: No cyanosis or clubbing. Trace wander ankle edema bilaterally. No palpable knots or cords. Negative Zeny sign bilaterally. Neurological: Alert. Cranial nerves 2-12 are grossly intact. Speech is clear. Right upper extremity is weak and slightly contracted. She is unable to move the right lower leg. Psychiatric: Pleasant and cooperative with appropriate mood and affect. Objective Data Vital Signs Vital Signs: Vital Signs - 24 hr 07/19/24 16:13 07/19/24 12:00 07/19/24 20:40 Temperature Pulse Rate 87 90 Respiratory Rate 20 Blood Pressure 121/55 L Pulse Oximetry 94 91 Oxygen Delivery Nasal Cannula Oxygen Flow Rate 1 07/19/24 20:40 07/19/24 20:49 07/19/24 20:50 Temperature 99.2 F Pulse Rate 87 88 91 Respiratory Rate 20 20 20 Blood Pressure 140/56 L Pulse Oximetry 92 Oxygen Delivery Oxygen Flow Rate 07/19/24 20:00 07/19/24 23:34 07/20/24 02:55 Temperature 98.2 F Pulse Rate 79 74 Respiratory Rate 18 18 Blood Pressure 120/48 L Pulse Oximetry 92 90 Oxygen Delivery Nasal Cannula Oxygen Flow Rate 1 07/20/24 02:44 07/20/24 06:21 07/20/24 07:51 Temperature 98.2
[2024-07-20 11:48] LABS: Glucose Point of Care 145 mg/dl (65-105)
--- NOTE | 2024-07-20 12:55 | PM.CNCAR ---
Assessment and Plan Assessment and plan (1) Pleural effusion on right: Code(s): J90 - Pleural effusion, not elsewhere classified Status: Acute (2) Diastolic dysfunction: Code(s): I51.89 - Other ill-defined heart diseases Status: Acute Plan 74 yo woman with chronic kidney disease stage IIIB, previous PE status post thrombectomy, and previous stroke (right sided weakness) presented with significant shortness of breath found to have large pleural effusion sp thoracentesis now with concerns of diastolic heart failure Pleural Effusion - while she has diastolic dysfunction with elevated pressures on echocardiogram she is not clinically in heart failure - nevertheless a trial of Lasix 40 mg IV push today followed by low-dose oral Lasix 20 mg daily may help with the pleural effusion as long as renal function stays stable on this regimen please call with additional questions History of Present Illness History of Present Illness Consult date/time: 07/20/24 12:55 Requesting physician: Nicky Dupree MD Consult reason: congestive heart failure Reason For Visit: Pneumonia Narrative: 74 yo woman with previous PE and previous stroke (right sided weakness) presented with significant shortness of breath. She has been short of breath for few weeks now. She works with physical therapy and occupational therapy however has significant right-sided weakness that prevents her from ambulating independently. Thus it is difficult to determine if the symptoms are exertional in nature. Nevertheless she does not complain of any lower extremity swelling or orthopnea. She does have the sleep at a 30 degree incline due to feeding tube. She denies any orthopnea or paroxysmal nocturnal dyspnea. She denies any chest discomfort. No loss of syncope or palpitations. Review of Systems Review of Systems: All systems reviewed & are unremarkable except as noted in HPI and below PMFSH Past Medical History Medical History Acute left ROSHAN ischemic stroke (02/2024) Resultant right hemiparesis. Cardiac arrest (03/2024) Due to massive pulmonary embolism. Cerebrovascular accident Chronic renal insufficiency, stage III (moderate) Diastolic dysfunction Hyperdynamic LV systolic function with an EF estimated at greater than 70% with grade 1 diastolic dysfunction on echo in 05/2024. Essential hypertension Mixed hyperlipidemia Peripheral vascular disease Pulmonary emboli (03/2024) Tobacco abuse Type 2 diabetes mellitus Vitamin D deficiency Surgical History Surgical History History of thrombectomy (03/2024) Saddle pulmonary emboli leading to cardiac arrest. Family History Family History Other Diabetes mellitus Family history of kidney disease Hypertension Social History Social History Social History: Surrogate medical decision maker: Ankit Wyatt, spouse. Code status: Full code. Smoking packs per day: 1 Smoking cigarettes per day: 20.0 Years smoked: 57 Smoking pack-years: 57.00 Smoking status: Former smoker Tobacco type: cigarettes Second hand tobacco smoke exposure: No Smoking end date: 06/18/24 Alcohol intake: never Substance use: never Substance use type: does not use Do You Feel Safe in your Home?: Yes Lack of Transportation: No Lack of Food: Never True Current Housing: I Have Housing Concerned About Future Housing: No Difficulty Paying Gas/Electric Bills: No Difficulty Paying for Meds: No Currently Unemployed: No Education: Associate Degree Difficulty w/ Childcare or Family Care: No Additional living arrangements comments: Lives with spouse in [place]. Spiritual care concerns: No Agree to blood products: Yes Meds Home Medications and All
[2024-07-20] MEDS: AZITHROMYCIN 500 MG/NS 250 ML 500 MG/250 ML BAG 250 MG IVPB (13:08)
[2024-07-20] MEDS: ACETAMINOPHEN 325 MG TABLET 650 MG PO (13:36)
[2024-07-20] MEDS: FUROSEMIDE INJ 40 MG/4 ML VIAL IV PUSH (15:43)
[2024-07-20 17:00] LABS: Glucose Point of Care 134 mg/dl (65-105)
[2024-07-20] MEDS: TERAZOSIN HCL 1 MG CAPSULE 4 MG FEED TUBE (20:39)
[2024-07-20] MEDS: MIRTAZAPINE 7.5 MG TABLET PO (20:40)
[2024-07-20] MEDS: INSULIN GLARGINE (*BKC) 100 UNITS/ML 15 UNITS SUB-Q (21:22)
[2024-07-20 21:32] LABS: Glucose Point of Care 118 mg/dl (65-105)
[2024-07-21] VITALS (10 sets, daily range): BP systolic 124–143; BP diastolic 46–52; PULSE 68–90; RESP 18–20; TEMP 36.3–36.7; O2SAT 90–96
[2024-07-21] MEDS: IPRATROPIUM 0.5 MG/ALBUTEROL SULFATE 2.5 MG AMPUL.NEB 3 ML INHALATION ×2 (05:10→13:33)
[2024-07-21 05:47] LABS: Basophils Percent Auto 0.6 % (0.2-1.2); Eosinophils Absolute Auto 0.3 K/mm3 (0-0.3); Eosinophils Percent Auto 5.1 % (0-4.4); Hematocrit 36.4 % (37.0-47.0); Hemoglobin 11.2 g/dL (12.0-15.0); Immature Granulocyte Absolute 0.01 K/mm3 (0.00-0.031); Immature Granulocyte Percent A 0.2 % (0-0.5); Lymphocytes Absolute Auto 1.04 K/mm3 (0.9-3.2); Lymphocytes Percent Auto 16.1 % (18.3-44.2); Mean Corpuscular HGB Conc 30.8 g/dl (32-36); Mean Corpuscular Hemoglobin 26.6 pg (26-34); Mean Corpuscular Volume 86.5 fl (80-100); Mean Platelet Volume 10.2 fl (7.4-10.4); Monocytes Absolute Auto 0.6 K/mm3 (0.1-0.6); Monocytes Percent Auto 9.6 % (2.6-8.5); Neutrophils Absolute Auto 4.4 K/mm3 (1.3-6.7); Neutrophils Percent Auto 68.4 % (45.5-73.1); Platelet Count Result 319 k/mm3 (150-375); Red Blood Count 4.21 M/mm3 (4.2-5.4); Red Cell Distribution Width 15.4 % (11.5-14.5); White Blood Count 6.5 K/mm3 (4.5-10.0)
[2024-07-21 05:54] LABS: Glucose Point of Care 64 mg/dl (65-105)
[2024-07-21 05:58] LABS: Alanine Aminotransferase 11 U/L (6-35); Albumin Level 3.7 g/dL (3.5-5.1); Alkaline Phosphatase 67 U/L (38-126); Anion Gap 6 mmol/L (4-12); Aspartate Amino Transferase 22 U/L (14-36); Bilirubin,Total 0.2 mg/dL (0.2-1.3); Blood Urea Nitrogen 21 mg/dL (7-17); Calcium 9.4 mg/dL (8.4-10.2); Carbon Dioxide 33 mmol/L (22-30); Chloride 99 mmol/L (98-107); Estimated CRCL calculation 25 ml/min; Estimated Glomerular Filt Rate 29; Glucose 62 mg/dL (65-110); Magnesium 2.3 mg/dL (1.6-2.3); Potassium 3.4 mmol/L (3.4-5.0); Sodium 138 mmol/L (137-145)
[2024-07-21 06:28] LABS: Glucose Point of Care 144 mg/dl (65-105)
[2024-07-21 08:29] LABS: Glucose Point of Care 95 mg/dl (65-105)
--- NOTE | 2024-07-21 09:10 | PM.PNPUL ---
Progress Note: A&P Assessment and Plan (1) Pleural effusion on right: Code(s): J90 - Pleural effusion, not elsewhere classified Status: Acute (2) Acute respiratory failure with hypoxia: Code(s): J96.01 - Acute respiratory failure with hypoxia Status: Acute Assessment and Plan: A 74-year-old female presented with shortness of breath and hypoxemia. She was found to have bilateral pleural effusions, with a large new effusion on the right side since early May and a smaller effusion on the left side that was also present on an abdominal CT from early May. The patient has been on antibiotics for a possible lower respiratory tract infection. She initially received BiPAP support and is currently on supplemental oxygen. Her white blood cell count has returned to the normal range. She underwent thoracentesis two days ago. Preliminary pleural fluid analysis shows a lymphocytic pleural effusion with a significant number of red cells; the pH is not consistent with empyema. Further testing to differentiate between transudate and exudate is pending. Based on her clinical history and preliminary pleural fluid analysis, the differential diagnosis includes congestive heart failure, previous chest trauma, complicated parapneumonic effusion related to recent lower respiratory tract infection, and less likely, malignancy. An echocardiogram performed yesterday revealed left ventricular diastolic dysfunction, as indicated by a significantly elevated E/E' ratio. The presence of bilateral pleural effusions may suggest that CHF is the underlying pathology. Conversely, the presence of septations on thoracic ultrasound may indicate previous trauma or a complicated parapneumonic effusion related to recent lower respiratory tract infection. ApneaLink last night showed no evidence of oxyhemoglobin desaturation on supplemental oxygen at 2 liters/minute. Pleural fluid test still pending. Patient started on a diuretic by Cardiology Services. The patient is cleared for discharge to home. She will need a home oxygen evaluation and should continue with the recommended oxygen flow during the day, as well as 2 liters/minute of oxygen at night. The patient will continue her prescribed direct anticoagulant therapy. It is important for her to continue using incentive spirometry at home. I have provided her with a business card to schedule an appointment with me at the outpatient pulmonary clinic. Please feel free to call with any questions. (3) Type 2 diabetes mellitus: Code(s): E11.9 - Type 2 diabetes mellitus without complications Status: Acute (4) Cerebrovascular accident (CVA) with hemiparesis: Status: Acute (5) Right hemiparesis: Code(s): G81.91 - Hemiplegia, unspecified affecting right dominant side Status: Acute (6) CHF (congestive heart failure): Code(s): I50.9 - Heart failure, unspecified Status: Acute Subjective Date/time seen: 07/21/24 09:10 Interval history: Patient has no new respiratory issues. Able to cough up clear phlegm following thoracentesis. She had some issues related to her blood sugar last p.m.. Underwent ApneaLink study on oxygen 2 liters/minute last night. Remains on oxygen via nasal cannula using low-flow. Review of Systems Review of Systems: All systems reviewed & are unremarkable except as noted in HPI and below (H&P and below) Exam Narrative: GENERAL APPEARANCE: Well developed, well nourished, alert and cooperative, and appears to be in mild respiratory distress while on N/C SKIN: Inspection of the skin reveals no rashes, ulcerations or petechiae. HEENT: Sclerae anicteric and conjunctivae pink and moist. Extraocular movements were intact. NECK: Supple. There was no thyroid enlargement, and no tenderness, or masses were felt. CHEST: Normal AP diameter and normal contour without any kyphoscoliosis. LUNGS: Crackles at bases posteriorly worse on right, no wheezing CARDIA
[2024-07-21] MEDS: FUROSEMIDE 20 MG TABLET PO (09:15)
[2024-07-21] MEDS: FERROUS SULFATE 325 MG TABLET DR BY MOUTH (09:15)
[2024-07-21] MEDS: ESCITALOPRAM OXALATE 10 MG TABLET PO (09:16)
[2024-07-21] MEDS: amLODIPine BESYLATE 10 MG TABLET PO (09:16)
[2024-07-21] MEDS: IRON SUCROSE COMPLEX 400 MG, IRON SUCROSE COMPLEX 100 MG in SODIUM CHLORIDE 0.9% IV 250 ML 78.57 MG IVPB (10:20)
--- NOTE | 2024-07-21 11:41 | PM.DS ---
DS: Admitting Diagnosis Discharge Date 07/21/24 Admitting Diagnosis SOB DS: Discharge Diagnosis Discharge Diagnosis (1) Diastolic dysfunction: Code(s): I51.89 - Other ill-defined heart diseases Status: Acute (2) Pleural effusion on right: Code(s): J90 - Pleural effusion, not elsewhere classified Status: Acute (3) Acute respiratory failure with hypoxia: Code(s): J96.01 - Acute respiratory failure with hypoxia Status: Acute DS: Summary Hospital Course Hospital Course: This is a 74-year-old female with history of stroke with right hemiparesis, cardiac arrest secondary to massive pulmonary emboli status post thrombectomy in March 2024, hypertension, chronic kidney disease, and type 2 diabetes mellitus who presented to the emergency department via EMS from home for evaluation of shortness of breath. The patient provides the following history and her provides additional information with the patient's permission. About 3 to 4 weeks ago she developed sinus congestion, cough, and shortness of breath and was prescribed azithromycin, cefdinir, and prednisone. She improved however about a week ago she once again started to feel short of breath, worse when lying flat. has been monitoring her pulse ox and reports that it is frequently in the upper 80s to low 90s. Today it was in the upper 70s on room air and even when encouraging deep breaths, her S p.o. did not go above 80%. With further questioning the patient tells me that she has been feeling weak and tired for the last 48 hours or so and mentions that on 2 occasions within the last month that she has complained of self-limiting substernal chest pain radiating through to the back without associated symptoms. It has been over a week since the last time she complained of that. She denies fever, chills, sweats, productive cough, syncope, near syncope, current chest pain, pleuritic pain, palpitations, dysphagia, concerns for aspiration, nausea, vomiting, lower extremity edema, and calf pain. She has not had any falls or trauma. Of note the patient has tube feedings at nighttime to supplement as her appetite and taste have been poor since her stroke. In the ED: Vital signs on arrival include a temperature of 97?, blood pressure 140/76, pulse 107, respiratory rate 34, SpO2 99% on CPAP (SpO2 was 78% on room air on EMS arrival to her home). Labs were significant for WBC count of 10.4, hemoglobin 10.7, platelet 350, sodium 136, BUN 35, creatinine 1.60, glucose 140, troponin less than 0.012, proBNP 590. Chest CTA was negative for pulmonary embolus, dissection, and aneurysm but did note a large right pleural effusion with extensive atelectatic changes and small left pleural effusion with possible minimal pulmonary edema. She was given a nebulizer treatment and azithromycin and ceftriaxone for possible pneumonia and she is being admitted in this setting for further treatment and evaluation. Patient underwent for thoracentesis and fluid showed reddish brown with elevated RBC, and pH >7.5. SOB was markefly improved and patient came off oxygen. overnight ApneaLink by Pulmonology showed patient needing nighttime oxygen. Pulmonolog will follow up outpatient for the remainder of pleural fluid studies US thorax showed thorax showed small complex right pleural effusion. ECHo showed grade I diastolic dysfunction and possible cause of pleural effusion. Cardiology was consulted adn patient was tarted on lasix by cardiology. Patient was started on lasix 20mg daily. Iron deficiency with isat 13 patient received 1000mg. she will continue to follow up with PCP. F/u with PCP in 3-5 days, cardiology and pulmonology as instructed. Assessment and Plan (1) Acute respiratory failure with hypoxia: Code(s): J96.01 - Acute respiratory failure with hypoxia Status: Acute Assessment and Plan: from pleural effusion CT chest showed bilateral pleural effusions markedly on
[2024-07-21 11:59] LABS: Glucose Point of Care 121 mg/dl (65-105)
[2024-07-21] MEDS: AZITHROMYCIN 250 MG TABLET 500 MG PO (12:54)
[2024-07-21] MEDS: AMOXICILLIN/CLAVULANATE K 500-125 MG TAB 1 TABLET PO (12:55)
--- NOTE | 2024-07-21 14:14 | PCPTNOTE ---
Will hold on therapy order as patient is to be discharged this afternoon.
--- NOTE | 2024-07-21 14:17 | PCOTNOTE ---
Pt to discharge home this afternoon and resume home health therapy so OT evaluation no required at this time.
[2024-07-25 20:19] LABS: Albumin Pleural Fluid 1.9 g/dL; Glucose Pleural Fluid 132 mg/dL; LDH Pleural Fluid 162 U/L; Total Protein Pleural Fluid 4.1 g/dL
== END 2024-07-21 16:10 | disposition home health service (06) | DRG 186 ==
LOC: ANHED 11:07 → ANHIMU 14:19 → ANH2MED 07-19 23:29
PROVIDERS: Physician Assistant; Admitting Provider General Practice; Emergency Provider Emergency Medicine; PCP Family Medicine; Visit Provider Internal Medicine
DX: J90 Pleural effusion, not elsewhere classified (principal); J96.01 Acute respiratory failure with hypoxia; I69.351 Hemiplegia and hemiparesis following cerebral infarction affecting right dominant side; I51.89 Other ill-defined heart diseases; I12.9 Hypertensive chronic kidney disease with stage 1 through stage 4 chronic kidney disease, or unspecified chronic kidney disease; N18.30 Chronic kidney disease, stage 3 unspecified; E11.22 Type 2 diabetes mellitus with diabetic chronic kidney disease; E11.51 Type 2 diabetes mellitus with diabetic peripheral angiopathy without gangrene; E78.2 Mixed hyperlipidemia; E55.9 Vitamin D deficiency, unspecified; Z20.822 Contact with and (suspected) exposure to COVID-19; Z87.891 Personal history of nicotine dependence; Z86.711 Personal history of pulmonary embolism; Z86.74 Personal history of sudden cardiac arrest; Z79.82 Long term (current) use of aspirin; Z93.1 Gastrostomy status
CPT/HCPCS: 32555; 36415; 36600; 71045; 71275; 80048; 80053; 82040; 82042; 82150; 82247; 82375; 82465; 82728; 82805; 82810; 82945; 82947; 82948; 83050; 83540; 83550; 83615; 83735; 83880; 83986; 84145; 84155; 84157; 84311; 84478; 84484; 85018; 85025; 85027; 85610; 85730; 86140; 87040; 87070; 87075; 87205; 87637; 87641; 88108; 88305; 89051; 93005; 93306; 93970; 94002; 94003; 94618; 94640; 94762; 99285; A9270; J0456; J0696; J1756; J1815; J1940; J7050; Q9967

== ENCOUNTER 2024-08-02 12:27 | Outpatient (CLI) | payer MEDICARE, SELFPAY ==
--- NOTE | ~2024-08-02 | XR_ITS ---
EXAMINATION: XR chest 2V DATE: 08/02/2024 12:51 INDICATION: Pleural effusion TECHNIQUE: frontal and lateral views of the chest were obtained. COMPARISON: Chest CT dated 07/17/2024 FINDINGS: Opacities at the posterior lower lung zones with blunting at the right costophrenic angle and bilater al posterior sulci consistent with small bilateral pleural effusions and associated posterior basilar atelectasis versus pneumonia. No pneumothorax. Cardiomegaly. Left pectoral implantable cardiac monit or. Old bilateral rib fractures. IMPRESSION: 1. Small bilateral pleural effusions with posterior basilar atelectasis versus less likely pneumonia. Reviewed, dictated and finalized at location A.
== END 2024-08-02 12:28 | disposition home or self-care (01) ==
PROVIDERS: PCP Family Medicine; Visit Provider Internal Medicine Pulmonary Disease
DX: J90 Pleural effusion, not elsewhere classified (principal)
CPT/HCPCS: 71046

== ENCOUNTER 2025-03-07 00:20 | Day surgery (SDC) | payer MEDICARE, SELFPAY ==
[2025-03-06 11:24] VITALS: BMI 28.2
--- OUTSIDE RECORDS SUMMARY | 2025-03-07 00:23 | XMS_ITS | Referral Summary ---
Author Organization [place] [id number] Address [address] [facility] [address] [place] [address] Care Team Providers Care Bookkeeping Assistant Name Role Phone Kayla Wayne MD Primary Care Provider Encounters Date Type Department Care Team Description 03/01/2025 Orders Only [facility] [address] [place] [address] [place] [id number] Mike Tang MD History of stroke (Primary Dx); History of loop recorder 02/19/2025 Telephone [facility] [address] [place] [address] [address] [place] [address] Mike Tang MD 02/14/2025 1:15 PM CDT Office Visit [facility] Cardiology at [address] [place] [address] Mike Tang MD History of stroke (Primary Dx); History of cardiac arrest; History of pulmonary embolism; Stage 3 chronic kidney disease, unspecified whether stage 3a or 3b CKD (HCC); Hypertension associated with diabetes (HCC); Hyperlipidemia associated with type 2 diabetes mellitus (HCC); History of tobacco use 01/16/2025 Telephone [facility] Card[facility] [address] [place] [address] [place] [phone] Mike Tang MD from Last 3 Months Allergies Active Allergy Reactions Criticality Noted Date Comments Hamircs-Ogm-Koq Reductase Inhibitors Other (See comments) 04/14/2024 Patient states doesn't tolerate statins legs got rash and cracked. Makes head muddy Medications amLODIPine (NORVASC) 10 mg tablet Take 1 tablet (10 mg total) by mouth daily 4 Active escitalopram (LEXAPRO) 20 mg tablet Take 1 tablet (20 mg total) by mouth daily 4 Active aspirin (Aspirin Childrens) 81 mg chewable tablet Take 1 tablet (81 mg total) by mouth daily 4 Active apixaban (ELIQUIS) 5 mg tablet Administer 1 tablet (5 mg total) per feeding tube 2 (two) times a day 4 Active vit C,U-Ss-axdbe-leona tein-zeaxan (PreserVision AREDS-2) 250-90-40-1 mg capsule 1 capsule 2 TIMES DAILY (route: oral) 4 Active mirtazapine (REMERON) 7.5 mg tablet Take 1 tablet (7.5 mg total) by mouth nightly 4 Active terazosin (HYTRIN) 1 mg capsule Take 4 capsules (4 mg total) by mouth nightly Active polyethylene glycol (MIRALAX) 17 gram packet Administer 1 packet (17 g total) per feeding tube daily as needed 4 Active Active Problems Problem Noted Date Diagnosed Date History of tobacco use 02/14/2025 Hyperlipidemia associated with type 2 diabetes m ellitus 02/14/2025 Hypertension associated with diabetes 02/14/2025 Stage 3 chronic kidney disease 02/14/2025 History of pulmonary embolism 02/14/2025 History of cardiac arrest 02/14/2025 History of stroke 02/14/2025 Social History Tobacco Use Types Packs/Day Years Used Date Smoking Tobacco: Former Cigarettes Smokeless Tobacco: Never Tobacco Cessation:Counseling Given: Not Answered Comments Unknown Sex and Gender Information Value Date Recorded Sex Assigned at Not on file 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 Gender Identity Not on file Sexual Orientation Not on file Last Filed Vital Signs Vital Sign Reading Time Taken Comments Blood Pressure 138/72 02/14/2025 1:22 PM CDT Pulse 63 02/14/2025 1:22 PM CDT Temperature - - Respiratory Rate - - Oxygen Saturation 95% 02/14/2025 1:22 PM CDT Inhaled Oxygen Concentration - - Weight - - Height - - Body Mass Index - - Plan of Treatment Not on file Procedures Procedure Name Priority Date/Time Associated Diagnosis Comments ECG 12-LEAD Routine 02/14/2025 3:33 PM CDT History of stroke from Last 3 Months Results * ECG 12 lead (02/14/2025 3:33 PM CDT) us Mike Tang MD ECG ORDERABLES Final Res ult from Last 3 Months Insurance [employer] MEDICARE GOLD [employer] MED[employer]ARE GOLD Care Teams Bookkeeping Assistant Relationship Specialty Start Date End Date Kayla Wayne MD PCP - General Family Medicine 02/16/23
--- OUTSIDE RECORDS SUMMARY | 2025-03-07 00:23 | XMS_ITS | Clinical Summary ---
Author Organization [facility] Address [address] [place] [address] Care Team Providers Care Bargain Table Clerk Name Role Phone Kayla Wayne MD Primary Care Provider [phone] Allergies Active Allergy Reactions Criticality Noted Date Comments Mwpsvgo-Aeg-Ifd Reductase Inhibitors Other (See Comments) 04/14/2024 Patient states doesn't tolerate statins legs got rash and cracked. Makes head muddy Medications amLODIPine (NORVASC) 10 mg tablet Take 1 Tablet by mouth daily. 4 Active Eliquis 5 mg tablet Take 5 mg by mouth 2 times daily. Active aspirin (SKYLER CHEWABLE) 81 mg Tablet, Chewable Take 81 mg by mouth daily. Active OneTouch Verio test strips Strip USE TO TEST BLOOD SUGAR 3 TIMES A DAY DIRECTED 4 Active Lantus Solostar U-100 Insulin 100 unit/mL (3 mL) solution for injection 15 UNIT (0.15 ML) SUBCUTANEOUSLY EVERY DAY AT BEDTIME Active metFORMIN (GLUCOPHAGE) 500 mg tablet Take 500 mg by mouth 2 times daily. Active mirtazapine (REMERON) 7.5 mg tablet Take 7.5 mg by mouth. 4 Active terazosin (HYTRIN) 1 mg capsule Take 1 mg by mouth daily. 4 Active sennosides-doc usate sodium (SENNA-S) 8.6-50 mg tablet 1 Tablet by Feeding Tube route 1 time daily as needed. 4 Active polyethylene glycol (MIRALAX) 17 gram Powder in Packet 17 Grams by Feeding Tube route 1 time daily as needed. 4 Active Active Problems No known active problems Encounters Date Type Department Care Team Description 03/06/2025 External Device Data ST[facility] ABSTRACTION Provider, Abstract 01/03/2025 External Device Data STL ABSTRACTION Provider, Abstract 12/23/2024 External Device Data [facility] ABSTRACTION Provider, Abstract 12/22/2024 External Device Data [facility] ABSTRACTION Provider, Abstract 12/19/2024 External Device Data [facility] ABSTRACTION Provider, Abstract from Last 3 Months Family History Medical History Relation Name Comments No Known Problems Child 1 50 No Known Problems Child 2 47 Stomach Cancer Father No Known Problems Mother Relation Name Status Comments Child 1 50 Alive Child 2 47 Alive Father Mother Social History Tobacco Use Types Packs/Day Years Used Date Smoking Tobacco: Former Cigarettes 1 57 Q uit: 03/09/2024 Alcohol Use Standard Drinks/Week Comments Never 0 (1 standard drink = 0.6 oz pur e alcohol) Comments Unknown Sex and Gender Information Value Date Recorded Sex Assigned at Not on file Legal Sex Female 3:04 PM CDT Gender Identity Not on file Sexual Orientation Not on file Last Filed Vital Signs Vital Sign Reading Time Taken Comments Blood Pressure 125/58 08/17/2024 1:50 PM CDT Pulse 73 08/17/2024 1:50 PM CDT Temperature 36.7 C (98 F) 08/17/2024 1:50 PM CDT Respiratory Rate - - Oxygen Saturation 96% 08/17/2024 1:50 PM CDT Inhaled Oxygen Concentration - - Weight - - Height 157.5 cm (5' 2 ) 08/17/2024 1:50 PM CDT Body Mass Index - - Plan of Treatment Upcoming Encounters Date Type Department Care Team (Late st Contact Info) Description 03/29/2025 2:30 PM CDT Office Visit [facility] On[facility] and Hematology - [place] [address] [place] [address] Samuel Spivey MD [address] [place] [address] Health Maintenance Due Date Last Done Comments DIABETES ANNUAL FOOT EXAM 1967 DIABETES ANNUAL RETINAL EXAM 1967 DIABETES MICROALBUMIN ANNUAL SCREEN 1967 LDL CHOLESTEROL ANNUAL 1967 DTAP/TDAP/TD VACCINES (1 - Tdap) 01/11/1968 PNEUMOCOCCAL VACCINE 50+ YEA RS (1 of 2 - PCV) 01/11/1968 Lung Cancer Screening 1999 ZOSTER VACCINE (1 of 2) 1999 OSTEOPOROSIS SCREENING 2014 RSV VACCINE (60+ or ) (1 - 1-dose 75+ series) 01/11/2024 INFLUENZA VACCINE (#1) 2024 DIABETES HBA1C Q 6 MONTHS 09/10/2024 03/10/2024, [facility] Care Teams Bargain Table Clerk Relationship Specialty Start Date End Date Kayla Wayne MD [address] [place] [phone] PCP - General Family Practice 08/18/24
--- OUTSIDE RECORDS SUMMARY | 2025-03-07 00:23 | XMS_ITS | Clinical Summary ---
Author Organization [facility] [employer] Address [address] [place] [address] Care Team Providers Care Skin Diver Name Role Phone Unavailable Primary Care Provider Unavailabl e Source Comments [facility] [employer],non-owned Affiliates and Associated Physician Practices is amultiple site organization consisting of ambulatory clinics and hospital sitesin [place], [place] and [place]. This disclosure is being madepursuant to the Care Everywhere program and may not contain all information available regarding this patient. Last updated 18.[facility] [employer] Allergies Active Allergy Reactions Criticality Noted Date Comments Hmg-Coa-R Inhibitors Unknown 03/10/2024 Causes her legs to be restless, per . Medications * Be aware that medications may not be up to date on this document. Alwaysverify current medications with the patient. aspirin (Aspirin) 81 MG chew tablet Take 1 (one) tablet by mouth once daily Active vitamin D, ergocalciferol , (Drisdol) 1.25 MG (94474 UT) capsule Take 1 (one) capsule by mouth every 14 days Active metFORMIN (Glucophage) 500 MG tablet Take 1 (one) tablet by mouth 2 times daily with morning and evening meal Active pentoxifylline CR (TRENtal) 400 MG tablet Take 1 (one) tablet by mouth once daily Active pitavastatin (Livalo) 1 MG tablet Take 1 (one) tablet by mouth once daily Active acetaminophen (Tylenol) 325 MG tablet 2 (two) tablets by Enteral Tube route every 4 hours as needed Maximum allowable Acetaminophen amount = 4 Grams (4000 mg) / 24 hours. 4 Active apixaban (Eliquis) 5 MG tablet 1 (one) tablet by Enteral Tube route 2 times daily 4 Active insulin glargine (Lantus/Semgle e) 100 units/mL pen Inject 16 (sixteen) Units subcutaneously once daily 4 Active polyethylene glycol 3350 (Miralax) 17 g packet 17 (seventeen) g by Enteral Tube route once daily as needed for Constipation 4 Active senna-docusate (Senokot-S) 8.6-50 MG tablet 1 (one) tablet by Enteral Tube route once daily as needed for Constipation 4 Active chlorhexidine (Peridex) 0.12 % solution Swish and spit 15 mL 2 times daily 4 Active amLODIPine (Norvasc) 10 MG tablet Take 1 (one) tablet by mouth once daily Active escitalopram (Lexapro) 10 MG tablet Take 1 (one) tablet by mouth once daily Active ARIPiprazole (Abilify) 10 MG tablet Take 1 (one) tablet by mouth once daily Active Multiple Vitamins-Music Sound Light Technician als (PreserVision AREDS 2) capsule Take 2 (two) capsules by mouth 2 times daily Active terazosin (Hytrin) 5 MG capsule Take 1 (one) capsule by mouth once daily Active Active Problems Problem Noted Date Diagnosed Date Acute ischemic stroke 04/12/2024 Acute kidney injury 04/12/2024 Type 2 diabetes mellitus 04/12/2024 Cardiac arrest 03/22/2024 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 Cardiogenic shock 03/22/2024 Dysarthria 03/09/2024 Weakness 03/09/2024 Right sided weakness 03/09/2024 S/P admn tPA in diff fac w/n last 24 hr bef adm to crnt fac 03/09/2024 Encounters Date Type Department Care Team Description 02/01/2025 1:10 AM CDT Clinical Support [facility] - Cardiology [address], [facility] [address] [place] [address] Acute ischemic stroke (HCC) 01/08/2025 Telephone [facility] - Cardiology [address] [facility], [facility] [address] [place] [address] Alyssa Parks RN Loop Recorder 12/28/2024 1:10 AM CDT Clinical Support [facility] - Cardiology [address] [facility], [facility] [address] [place] [address] Acute ischemic stroke from Last 3 Months Social History Tobacco Use Types Packs/Day Years Used Date Smoking Tobacco: Every Day Cigarettes Tobacco Cessation:Ready to Q uit: Not Asked Alcohol Use Standard Drinks/Week Comments Never 0 (1 standard drink = 0.6 oz pur e alcohol) AUDIT-C Answer Date Recorded Q1: How often do you have a drink containing alcohol? Never 03/09/2024 Q2: How many drinks containi ng alcohol do you have on a typical day when you are drinking? Patient does not drink Q3: How often do you have si x or more drinks on one occasion? Never 03/09/2024 PHQ-2 Answer Date Recorded Patient Health Questionnaire-2 Score 5 04/10/2024 Comments Unknown Sex and Gender Information Value Date Recorded Sex Assigned at Not on file Legal Sex Female 3:40 PM CDT Gender Identity Not on file Sexual Orientation Not on file Last Filed Vital Signs Vital Sign Reading Time Taken Comments Blood Pressure 106/61 09/28/2024 11:56 AM ROUTE RIDER SUPERVISOR Pulse 64 09/28/2024 11:56 AM ROUTE RIDER SUPERVISOR Temperature 36.4 C (97.5 F) 09/28/2024 11:56 AM ROUTE RIDER SUPERVISOR Respiratory Rate 18 09/28/2024 11:5 6 AM ROUTE RIDER SUPERVISOR Oxygen Saturation 98% 09/28/2024 11: 56 AM ROUTE RIDER SUPERVISOR Inhaled Oxygen Concentration 30% 03/28/2024 8 :27 AM CDT Weight 95.1 kg (209 lb 11.2 oz) 024 11:56 AM ROUTE RIDER SUPERVISOR Height 170.2 cm (5' 7 ) 09/28/2024 11:5 6 AM ROUTE RIDER SUPERVISOR Body Mass Index 32.84 09/28/2024 11:56 AM ROUTE RIDER SUPERVISOR Plan of Treatment Health Maintenance Due Date Last Done Comments BONE DENSITY TESTING 1950 HEPATITIS C SCREENING 01/06/1967 DTAP/TDAP/TD VACCINES (1 - Tdap) 01/11/1968 PNEUMOCOCCAL VACCINE 50+ (1 of 2 - PCV) 01/11/1968 ZOSTER VACCINE (1 of 2) 1999 Respiratory Syncytial Virus (RSV) Vaccine Pt: or over 60 yrs (1 - 1-dose 75+ series) 01/11/2024 DIABETES RETINOPATHY SCREENING 04/12/2024 DIABETES-FOOT EXAM WITH MONOFILAMENT 04/12/2024 COVID-19 VACCINE ( season) 2024 08/19/2022, 03/17/2022, 08/26/2021, Additional history exists DIABETES-HGB A1C 09/09/2024 03/09/2024 DEPRESSION SCREENING 10/18/2024 03/15/2024 DIABETES - URINE PROTEIN SCREENING 10/18/2024 MEDICARE AW CALENDAR YEAR 2024 DIABETES-SERUM CREATININE 04/03/20252023, 04/02/2024, 04/01/2024, Additional history exists INFLUENZA VACCINE (Season Ended) 2025 07/23/2023, 07/14/2022, 07/07/2021, Additional history exists HEPATITIS B VACCINE Aged Out No longe r eligible based on patient's age to complete this topic HIB VACCINE Aged Out No longer eligi ble based on patient's age to complete this topic HPV VACCINE Aged Out No longer eligi ble based on patient's age to complete this topic MENINGOCOCCAL (Group B) VACCINE SHARED DECISION-MAKING Aged Out No longer eligible based on patient's age to complete this topic MENINGOCOCCAL GROUPS A/C/Y/W VACCINE Aged Out No longer eligible based on patient's age to complete this topic Medical Devices Implanted Type Area Teaseler Device Identifier Shelf Expiration Date Model / Serial / Lot Sys Crd Mntr Rvl Linq Ii - [id number] Implanted:Qty: 1 on 03/15/2024 by Layne Bates MD at [facility] Left: Chest Wall [employer] [id number] 02/02/2025 [id number] / [id number] / [id number] Description:loop implant Procedures Procedure Name Priority Date/Time Associated Diagnosis Comments MT ILR DEVICE INTERROGAT REMOTE Routine 02/11/2025 2:39 PM CDT Acute ischemic stroke (HCC) CARDIAC PROCEDURE ORDER 01/23/2025 MT ILR DEVICE INTERROGAT REMOTE Routine 2025 12:33 AM CDT Acute ischemic stroke CARDIAC PROCEDURE ORDER 12/19/2024 BASIC METABOLIC PANEL (CALCIUM TOTAL) Routine 04/03/2024 10:21 PM CDT HEMOGLOBIN A1C Add on 03/09/2024 7:04 PM CDT from Last 3 Months or Most Recently Relevant to Health Maintenance Results * MT ILR DEVICE INTERROGAT REMOTE (02/11/2025 2:39 PM CDT) Narrative Marques Alvarado MD - 02/11/2025 2:39 PM CDT Marques Alvarado MD 02/11/2025 2:39 PM Dear Obdulia Wyatt, I reviewed the remote interrogation of your loop recorder. Your device's sensing is appropriate and stable. During this most recent monitored period ending on 01/23/2025 your atrial fibrillation/tachycardia burden was 0% and you had no significant arrhythmias. Device function is normal, no programming changes are required, and no medications will need to be changed. Please call our offices if you have any further questions. Sincerely, Marques Alvarado 02/11/2025 us Marques Alvarado MD PROCEDURE/MINOR SURGICAL ORDERAB LES Final Result * CARDIAC PROCEDURE ORDER (01/23/2025) Only the most recent of2 resultswithin the time period is included. Narrative 01/23/2025 Ordered by an unspecified provider. us Scanned Document CARDIAC SERVICES ORDERABLES Fin al Result * MT ILR DEVICE INTERROGAT REMOTE (2025 12:33 AM CDT) Narrative Marques Alvarado MD - 2025 12:33 AM CDT Marques Alvarado MD 2025 12:33 AM Dear Obdulia Wyatt, I reviewed the remote interrogation of your loop recorder. Your device's sensing is appropriate and stable. During this most recent monitored period ending on 12/19/2024 your atrial fibrillation/tachycardia burden was 0% and you had no significant arrhythmias. Device function is normal, no programming changes are required, and no medications will need to be changed. Please call our offices if you have any further questions. Sincerely, Marques Alvarado 2025 Marques Alvarado MD PROCEDURE/MINOR SURGICAL ORDERAB LES Final Result * (ABNORMAL) BASIC METABOLIC PANEL (CALCIUM TOTAL) (04/03/2024 10:21 PM [facility]) BUN 31(H) 7 - 26 mg/dL 04/03/2024 11:02 PM [facility] Creatinine 1.33(H) 0.56 - 0.96 mg/dL 04/03/2024 11:02 PM [facility] Sodium 141 136 - 145 mmol/L 04/03/2024 11:02 PM [facility] Potassium 4.5 3.5 - 4.5 mmol/L 04/03/2024 11:02 PM [facility] Chloride 103 98 - 107 mmol/L 04/03/2024 11:02 PM [facility] CO2 29 22 - 29 mmol/L 04/03/2024 11:02 PM [facility] Glucose 133(H) 70 - 115 mg/dL 04/03/2024 11:02 PM [facility] Calcium 9.5 8.4 - 10.2 mg/dL 04/03/2024 11:02 PM [facility] Anion Gap 9 6 - 16 04/03/2024 11:02 PM [facility] BUN/Creatinine Ratio 23 7 - 23 04/03/2024 11:02 PM [facility] Osmolality Calculated 300(H) 275 - 295 mOsm/kg 04/03/2024 11:02 PM [facility] eGFR by CKD-EPI 42(L) >=90 mL/min/1.7 3 m2 04/03/2024 11:02 PM [facility] Blood BLOOD SPECIMEN / Unknown Venipuncture / Unknown 04/03/2024 10:21 PM CDT 04/03/2024 10:33 PM CDT us Laureano Monk MD LAB - CHEMISTRY ORDERABLES Final Result Performing Organization Address City/[facility]/ZIP Co de Phone Number [facility] [address] [place] [address], [place] [phone] * (ABNORMAL) HEMOGLOBIN A1C (03/09/2024 7:04 PM CDT) Hemoglobin A1c 6.5(H) <=5.6 % 03/10/2024 10:01 AM CDT [facility] Estimated Average Glucose 140 mg/dL 03/10/2024 10:01 AM T [facility] Comment: HbA1c Interpretation: Normal : < 5.7% Pre-diabetes: 5.7-6.4% Diabetes: Equal to or greater than 6.5% Test results diagnostic of diabetes should be repeated for confirmation. Treatment target values recommended by ADA and other clinical organizations should be used to evaluate metabolic control in patients. Reference: [place] Diabetes Association, Standards of Care in Diabetes -2020 In patients 70 years and older consider HbA1c target range of 7.0-7.5% (Reference: Willam Retana, et al. JAMDA. 2012) The Sebia assay for the measurement of HbA1c is a National Glycohemoglobin Standardization Program (NGSP) certified method. Blood BLOOD SPECIMEN / Unknown Venipuncture / Unknown 03/09/2024 7:04 PM CDT 03/09/2024 7:25 PM CDT us Hood Torres MD LAB - CHEMISTRY ORDERAB LES Final Result Performing Organization Address City/[facility]/ZIP Co de Phone Number [facility] [address] [place] [address], [place] [phone] from Last 3 Months or Most Recently Relevant to Health Maintenance Insurance [employer] MEDICARE ADV AETNA MEDICARE ADV Advance Directives Documents on File Type Date Recorded Patient Assistant Track And Field Coach Expl anation Adv Directive/Living Will/POA 01/31/2025 9:59 AM * Full Code (Latest Code Status on File) Date Activated Date Inactivated Comments 04/05/2024 8:13 AM 04/14/2024 1:24 PM * LIMITED RESUSCITATION-PRIOR AND AFTER ARREST Date Activated Date Inactivated Comments 03/22/2024 4:57 PM 04/05/2024 8:13 AM Question Answer Comments Limited Resuscitation: No Chest Compress ionNo Intubation, No Invasive VentilationNo Cardioversion, No Defibrilation, No External or Internal Pacemaker * Full Code Date Activated Date Inactivated Comments 03/09/2024 4:46 PM 03/22/2024 4:57 PM
--- OUTSIDE RECORDS SUMMARY | 2025-03-07 00:23 | XMS_ITS | Encounter Summary ---
Author Organization [facility] Address [address] [place] [address] Care Team Providers Care Medical Health Researcher Name Role Phone Kayla Wayne MD Primary Care Provider [phone] Encounter Details Date Type Department Care Team (Late st Contact Info) Description 03/06/2025 External Device Data [place] ABSTRACTION Provider, Abstract NO ADDRESS ON FILE Social History Tobacco Use Types Packs/Day Years [...] on file Sexual Orientation Not on file documented as of this encounter Plan of Treatment Upcoming Encounters Date Type Department Care Team (Late st Contact Info) Description 03/29/2025 2:30 PM CDT Office Visit [facility] Oncology and Hematology - [place] [address] [facility] [address] [place] [address] Samuel Spivey MD [address] [place] [address] documented as of this encounter Visit Diagnoses Not on filedocumented in this encounter Care Teams Medical Health Researcher Relationship Specialty Start Date End Date Kayla Wayne MD [address] [place] [phone] PCP - General Family Practice 08/18/24 documented as of this encounter
--- OUTSIDE RECORDS SUMMARY | 2025-03-07 00:23 | XMS_ITS | Clinical Summary ---
Author Organization [facility] [address] Address [address] [place] [address] Care Team Providers Care Spear Fisher Name Role Phone Kayla Wayne MD Primary Care Provider [phone] Allergies Active Allergy Reactions Criticality Noted Date Comments Ohvuwiy-Vfe-Qoa Reductase Inhibitors Other (See comments) 04/14/2024 Patient [...] (two) times a day 4 Active vit C,M-Js-eicbq-leona tein-zeaxan (PreserVision AREDS-2) 250-90-40-1 mg capsule 1 [...] total) per feeding tube daily as needed Active Active Problems Problem Noted Date Diagnosed Date History of tobacco use 02/14/2025 Hyperlipidemia associated with type 2 diabetes m ellitus 02/14/2025 Hypertension associated with diabetes 02/14/2025 Stage 3 chronic kidney disease 02/14/2025 History of pulmonary embolism 02/14/2025 History of cardiac arrest 02/14/2025 History of stroke 02/14/2025 Encounters Date Type Department Care Team Description 03/01/2025 Orders Only [facility] Cardiology [address] [place] [address] [place] [phone] Mike Tang MD History of stroke (Primary Dx); History of loop recorder 02/19/2025 Telephone [facility] Cardiology [address] [place] [address] Mike Tang MD 02/14/2025 1:15 PM CDT Office Visit [facility] Cardiology at [address] [place] [address] Mike Tang MD History of stroke (Primary Dx); History of cardiac arrest; History of pulmonary embolism; Stage 3 chronic kidney disease, unspecified whether stage 3a or 3b CKD (HCC); Hypertension associated with diabetes (HCC); Hyperlipidemia associated with type 2 diabetes mellitus (HCC); History of tobacco use 01/16/2025 Telephone [facility] Cardiology [address] [place] [address] [place] [phone] Mike Tang MD from Last 3 Months Surgical History Surgery Date Site/Laterality Comments CATARACT EXTRACTION 2014 Medical History Medical History Date Comments Cataract Hypertension 2004 Stroke (HCC) 03/09/24 Chronic kidney disease 2019 Diabetes mellitus (HCC) 2009 Anxiety Family History Medical History Relation Name Comments Cancer Father Sunny Flores Hypertension Mother Anabelle Flores Relation Name Status Comments Father Sunny Flores Alive Mother Anabelle Flores Alive Social History Tobacco Use Types Packs/Day Years Used Date Smoking Tobacco: Former Cigarettes Smokeless Tobacco: Never Tobacco Cessation:Counseling Given: Not Answered Comments Unknown Sex and Gender Information Value Date Recorded Sex Assigned at Not on file 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 Gender Identity Not on file Sexual Orientation Not on file Obstetrics History Last Filed Vital Signs Vital Sign Reading Time Taken Comments Blood Pressure 138/72 02/14/2025 1:22 PM CDT Pulse 63 02/14/2025 1:22 PM CDT Temperature - - Respiratory Rate - - Oxygen Saturation 95% 02/14/2025 1:22 PM CDT Inhaled Oxygen Concentration - - Weight - - Height - - Body Mass Index - - Plan of Treatment Health Maintenance Due Date Last Done Comments Albumin Creatinine Ratio, Urine 1950 Depression Screening 1950 Fall Risk Assessment 1950 Hepatitis C Screening 1950 Osteoporosis Screening-Bone Density Scan 1950 eGFR 1950 Dilated Eye Exam 1950 Foot Exam 1949 Lipid Panel 1949 DTaP/Tdap/Td Vaccine (1 - Tdap) 01/11/1960 Hepatitis B Screening 1967 Well Visit 65+ 2014 Covid-19 Vaccine (2023-2 5 season) 2024 08/19/2022, 03/17/2022, 08/26/2021, Additional history exists Hemoglobin A1C 09/09/2024 03/09/2024 Influenza Vaccine (Season Ended) 2025 07/14/2022, 07/07/2021, 07/09/2020, Additional history exists Zoster Vaccine Completed 11/08/2018, 06/27/2018 Pneumococcal vaccine 65+ Completed 05/30/2020, 12/16 Procedures Procedure Name Priority Date/Time Associated Diagnosis Comments ECG 12-LEAD Routine 02/14/2025 3:33 PM CDT History of stroke from Last 3 Months Results * ECG 12 lead (02/14/2025 3:33 PM CDT) us Mike Tang MD ECG ORDERABLES Final Res ult from Last 3 Months Insurance T MEDICARE GOLD [facility] MEDICARE [facility] Care Teams Spear Fisher Relationship Specialty Start Date End Date Kayla Wayne MD PCP - General Family Medicine 02/16/23
[2025-03-07 10:29] VITALS: BP 173/55; PULSE 62; RESP 16; TEMP 36.6; O2SAT 98
--- NOTE | 2025-03-07 10:57 | P.SEDATION_ITS ---
Moderate Sedation Note-Pt Data Patient Data Diagnosis: Previously implanted loop recorder with visible of erosion at the implant site Present Complaint: No complaint Procedure to be performed/Plan: Explantation of loop recorder Allergies Allergy/AdvReac Type Severity Reaction Status Date / Time Gtwspee-QKS-JfW Reductase Allergy Unknown Weakness Verified 03/06/25 08:33 Inhibitor (Rhazyaa-Osf-Ryn Reductase Inhibitor) Home Medications ?Medication ?Instructions ?Recorded ?Confirmed ?Type aspirin 81 mg tablet,delayed 81 mg PO DAILY 05/11/24 03/06/25 History release pen needle, diabetic 31 gauge x #100 ea 06/07/24 02/19/25 Rx 3/16 (BD Ultra-Fine Mini Pen Needle) blood sugar diagnostic (Blog Talk RadioTouch #200 ea 06/26/24 02/19/25 Rx Verio test strips) vit C 250 mg-E 90 mg-zinc 40 1 tablet PO QAM AND QPM 07/17/24 03/06/25 History mg-copper 1 al-yinygw-nbhizn chew tablet (PreserVision AREDS-2) lancets 33 gauge (OneTouch Delica #300 ea 08/06/24 02/19/25 Rx Plus Lancet) mirtazapine 15 mg tablet (Remeron) 7.5 mg (1/2 x 15 mg) PO HS #45 tabs 10/15/24 03/06/25 Rx amlodipine 10 mg tablet 10 mg PO DAILY #90 tabs 12/01/24 03/06/25 Rx escitalopram oxalate 20 mg tablet 20 mg PO DAILY #90 tabs 12/27/24 03/06/25 Rx terazosin 1 mg capsule 4 mg (4 x 1 mg) feeding tube HS 12/27/24 03/06/25 Rx #360 caps apixaban 5 mg tablet (Eliquis) 5 mg PO BID #60 tabs 02/27/25 03/06/25 Rx Sedation/Anesthesia: No previous sedation/anesthesia problems (including family history). [facility] Past Medical History Medical History Diastolic dysfunction Hyperdynamic LV systolic function with an EF estimated at greater than 70% with grade 1 diastolic dysfunction on echo in 05/2024. Cerebrovascular accident Cardiac arrest (03/2024) Due to massive pulmonary embolism. Type 2 diabetes mellitus Pulmonary emboli (03/2024) Acute left ROSHAN ischemic stroke (02/2024) Resultant right hemiparesis. Chronic renal insufficiency, stage III (moderate) Essential hypertension Mixed hyperlipidemia Peripheral vascular disease Tobacco abuse Vitamin D deficiency Surgical History Surgical History History of thrombectomy (03/2024) Saddle pulmonary emboli leading to cardiac arrest. Family History Family History Mother Hypertension Father Cancer Other Diabetes mellitus Family history of kidney disease Social History Social History Social History: Surrogate medical decision maker: Ankit Lackeyshani, spouse. Code status: Full code. Smoking packs per day: 1 Smoking cigarettes per day: 20.0 Years smoked: 57 Smoking pack-years: 57.00 Smoking status: Former smoker Tobacco type: cigarettes Second hand tobacco smoke exposure: No Smoking end date: 06/18/24 Alcohol intake: never Substance use: never Substance use type: does not use Do You Feel Safe in your Home?: Yes Lack of Transportation: No Lack of Food: Never True Current Housing: I Have Housing Concerned About Future Housing: No Difficulty Paying Gas/Electric Bills: No Difficulty Paying for Meds: No Currently Unemployed: No Education: Associate Degree Difficulty w/ Childcare or Family Care: No Additional living arrangements comments: Lives with spouse in [place]. Spiritual care concerns: No Agree to blood products: Yes Mod Sed Physical Exam Physical Exam Pre Procedural Exam: Normal: Appearance, Throat, Airway, Lungs (Erosion of loop recorder noted in left anterior chest wall), Heart Size, Heart Rate, Heart Rhythm and Extremities and Variation: Neuro Exam (Right hemiplegia) Hours since solid foods: 12 Hours since liquid intake: 12 Mallampati Classification: class II Internal Medicine - PN: Obj Da Vital Signs Vital Signs: Vital Signs - 24 hr 03/07/25 10:29 Temperature 36.6 C Pulse Rate 62 Respiratory Rate 16 Blood Pressure 173/55 H Pulse Oximetry 98 Oxygen Delivery Room Air ASA Classification/Sedation ASA Classification/Sedation ASA Class: II Emergent: No Risks: Risks, benefits and alternatives explained and patient/family accepted plan for sedation. Patient re-evaluated immediately prior to sedation.
--- NOTE | 2025-03-07 11:21 | WPDCARDPROC ---
Cardiac Cath Procedure Note Date of procedure:: 03/07/25 Performing physician:: Cornelio De León MD Indication:: Explantation of loop recorder with erosion Brief clinical history:: This is a 75-year-old lady with a Medtronic LINQ loop recorder implanted elsewhere last year. Upon transferring her care to our practice the device on exam was seen to be a rotating through the skin in the left anterior chest wall. Removal of the device has been arrange for that reason. Procedure Procedure performed:: Explantation of previously implanted loop recorder which is eroding Sedation/Medication given:: Fentanyl 25 mg, Versed Access site:: Left anterior chest wall Estimated blood loss:: Minimal Procedure note:: Patient was brought to the cardiac catheterization left anterior chest wall, site of the implanted device was prepped and draped in a sterile fashion. The puncture at the site of the implant was identified and there was visible device material seen at the site of the puncture. There was no surrounding erythema or drainage. 20 cc of 1% lidocaine was infiltrated in the area for local anesthesia. 1 cm incision was made at the site of the implant. Electrocautery was to provide hemostasis. After this the loop recorder device was isolated and removed with a hemostasis clamp. The implant site was then irrigated with antibiotic infused saline. The puncture site was dressed with Aquacel dressing. The patient was taken back to the holding area in stable condition there were no signs of any procedural complications. Findings:: As above Conclusion:: Successful uncomplicated explantation of Medtronic loop recorder which implanted elsewhere last year which is now eroding through the skin The device implant site will be allowed to heal by secondary intention since the device was exposed Cornelio De León MD [facility]
[2025-03-07 11:30] VITALS: BP 152/50; PULSE 55; RESP 18; O2SAT 97
[2025-03-07 11:45] VITALS: BP 161/41; PULSE 57; RESP 18; O2SAT 97
[2025-03-07 12:00] VITALS: BP 162/81; PULSE 55; RESP 17; O2SAT 95
[2025-03-07 12:15] VITALS: BP 161/53; PULSE 56; RESP 15; O2SAT 95
[2025-03-07 12:30] VITALS: BP 173/47; PULSE 60; RESP 17; O2SAT 99
== END 2025-03-07 12:45 | disposition home or self-care (01) ==
PROVIDERS: PCP Family Medicine; Visit Provider Specialist
PROC: (CPT 33286; principal; 2025-03-07 11:00)
DX: T82.897A Other specified complication of cardiac prosthetic devices, implants and grafts, initial encounter (principal); I50.30 Unspecified diastolic (congestive) heart failure; I73.9 Peripheral vascular disease, unspecified; E78.2 Mixed hyperlipidemia; E55.9 Vitamin D deficiency, unspecified; E11.22 Type 2 diabetes mellitus with diabetic chronic kidney disease; I12.9 Hypertensive chronic kidney disease with stage 1 through stage 4 chronic kidney disease, or unspecified chronic kidney disease; N18.30 Chronic kidney disease, stage 3 unspecified; Y83.1 Surgical operation with implant of artificial internal device as the cause of abnormal reaction of the patient, or of later complication, without mention of misadventure at the time of the procedure; Z79.82 Long term (current) use of aspirin; Z79.01 Long term (current) use of anticoagulants; Z98.890 Other specified postprocedural states; Z87.891 Personal history of nicotine dependence; Z86.74 Personal history of sudden cardiac arrest; Z86.711 Personal history of pulmonary embolism; Z86.79 Personal history of other diseases of the circulatory system; Z86.73 Personal history of transient ischemic attack (TIA), and cerebral infarction without residual deficits; Z80.9 Family history of malignant neoplasm, unspecified
CPT/HCPCS: 33286; J0690; J2003; J2250; J3010; J7040

== ENCOUNTER 2025-03-22 14:05 | Outpatient (CLI) | payer MEDICARE, SELFPAY ==
--- OUTSIDE RECORDS SUMMARY | 2025-03-22 14:49 | XMS_ITS | Clinical Summary ---
Author Organization [facility] Address [address] [place] [address] Care Team Providers Care Electrical Tester Name Role Phone Unavailable Primary Care Provider Unavailabl e Source Comments [facility],non-owned Affiliates and Associated Physician Practices is amultiple site organization consisting of ambulatory clinics and hospital sitesin [place], [place], [place] and [place]. This disclosure is being madepursuant to the Care Everywhere program and may not contain all information available regarding this patient. Last updated 18.[facility] Allergies Active Allergy Reactions Criticality Noted Date Comments Hmg-Coa-R Inhibitors Unknown 03/10/2024 Causes her legs to be restless, per . Medications * Be aware that medications may not be up to date on this document. Alwaysverify current medications with the patient. aspirin (Aspirin) 81 MG chew tablet Take 1 (one) tablet by mouth once daily Active vitamin D, ergocalciferol , (Drisdol) 1.25 MG (96152 UT) capsule Take 1 (one) capsule by [...] tablet by mouth once daily Active Multiple Vitamins-Multi Line Claims Adjuster als (PreserVision AREDS 2) capsule Take 2 [...] [facility] - Cardiology [address], [facility] [address] [place] [address] Acute ischemic stroke (HCC) 01/08/2025 Telephone [facility] Cardiology [address] [facility], [facility] [address] [place] [address] Alyssa Parks RN Loop Recorder 12/28/2024 1:10 AM CDT Clinical Support [facility] - Cardiology [address] [facility], [facility] [address] [place] [address] Acute ischemic stroke from Last 3 Months [...] Comments Blood Pressure 106/61 09/28/2024 11:[address] [facility] Pulse 64 09/28/2024 11:[address] [facility] Temperature 36.4 C (97.5 F) 09/28/2024 11:[address] [facility] Respiratory Rate 18 09/28/2024 11:[address] [facility] Oxygen Saturation 98% 09/28/2024 11: [address] [facility] Inhaled Oxygen Concentration 30% 03/28/2024 8 :27 AM CDT Weight 95.1 kg (209 lb 11.2 oz) 024 11:[address] [facility] Height 170.2 cm (5' 7) 09/28/2024 11:[address] [facility] Body Mass Index 32.84 09/28/2024 11:[address] [facility] Plan of Treatment Health Maintenance Due Date [...] this topic Medical Devices Implanted Type Area Powderman Device Identifier Shelf Expiration Date Model / Serial / Lot Sys Crd Mntr Rvl Linq Ii - [id number] Implanted:Qty: 1 on 03/15/2024 by Layne Bates MD at [facility] Left: Chest Wall Medtron [place] [id number] 02/02/2025 [id number] / [id number] / [id number] Description:loop implant Procedures Procedure Name Priority Date/Time Associated Diagnosis Comments [place] [facility] DEVICE INTERROGAT REMOTE Routine 02/11/2025 2:39 PM CDT Acute ischemic stroke (HCC) CARDIAC PROCEDURE ORDER 01/23/2025 [place] IL[facility] DEVICE INTERROGAT REMOTE Routine 2025 12:33 AM CDT Acute ischemic stroke BASIC METABOLIC PANEL (CALCIUM TOTAL) Routine 04/03/2024 10:21 PM CDT HEMOGLOBIN A1C Add on 03/09/2024 7:04 PM CDT from Last 3 Months or Most Recently Relevant to Health Maintenance Results * [place] ILR DEVICE INTERROGAT REMOTE (02/11/2025 2:39 PM [...] any further questions. Sincerely, Marques Alvarado 02/11/2025 Marques Alvarado MD PROCEDURE/MINOR SURGICAL ORDERAB LES Final Result * CARDIAC PROCEDURE ORDER (01/23/2025) Narrative 01/23/2025 Ordered by an unspecified provider. us Scanned Document CARDIAC SERVICES ORDERABLES Fin al Result * [place] ILR DEVICE INTERROGAT REMOTE (2025 12:33 AM [...] METABOLIC PANEL (CALCIUM TOTAL) (04/03/2024 10:21 PM CDT) BUN 31(H) 7 - 26 mg/dL 04/03/2024 11:02 PM [facility] Creatinine 1.33(H) 0.56 - 0.96 mg/dL 04/03/2024 11:02 PM [facility] Sodium 141 136 - 145 mmol/L 04/03/2024 11:02 PM [facility] Potassium 4.5 3.5 - 4.5 mmol/L 04/03/2024 11:02 PM [facility] Chloride 103 98 - 107 mmol/L 04/03/2024 11:02 PM [facility] CO2 29 22 - 29 mmol/L 04/03/2024 11:02 PM [facility] Glucose 133(H) 70 - 115 mg/dL 04/03/2024 11:02 PM [facility] Calcium 9.5 8.4 - 10.2 mg/dL 04/03/2024 11:02 PM [facility] Anion Gap 9 6 - 16 04/03/2024 11:02 PM [facility] BUN/Creatinine Ratio 23 7 - 23 04/03/2024 11:02 PM [facility] Osmolality Calculated 300(H) 275 - 295 mOsm/kg 04/03/2024 11:02 PM [facility] eGFR by CKD-EPI 42(L) >=90 mL/min/1.7 3 m2 04/03/2024 11:02 PM [facility] Blood BLOOD SPECIMEN / Unknown Venipuncture / Unknown 04/03/2024 10:21 PM CDT 04/03/2024 10:33 PM CDT Laureano Monk MD LAB - CHEMISTRY ORDERABLES Final Result Performing Organization Address City/[facility]/ZIP Co de Phone Number [facility] [address] [place] [address], [facility] [phone] * (ABNORMAL) HEMOGLOBIN A1C (03/09/2024 7:04 PM CDT) Hemoglobin A1c 6.5(H) <=5.6 % 03/10/2024 10:01 AM CDT [facility] Estimated Average Glucose 140 mg/dL 03/10/2024 10:01 AM CDT [facility] Comment: HbA1c Interpretation: Normal : < 5.7% Pre-diabetes: 5.7-6.4% Diabetes: Equal to or greater than 6.5% Test results diagnostic of diabetes should be repeated for confirmation. Treatment target values recommended by ADA and other clinical organizations should be used to evaluate metabolic control in patients. Reference: [place] Diabetes Association, Standards of Care in Diabetes -2020 In patients 70 years and older consider HbA1c target range of 7.0-7.5% (Reference: Willam Retana et al. JAMDA. 2012) The Sebia assay for the measurement of HbA1c is a National Glycohemoglobin Standardization Program (NGSP) certified method. Blood BLOOD SPECIMEN / Unknown Venipuncture / Unknown 03/09/2024 7:04 PM CDT 03/09/2024 7:25 PM CDT Hood Torres MD LAB - CHEMISTRY ORDERAB LES Final Result Performing Organization Address [facility]/ZIP Co de Phone Number [facility] [address] [place] [address], 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
--- OUTSIDE RECORDS SUMMARY | 2025-03-22 14:49 | XMS_ITS | Clinical Summary ---
Author Organization [facility] Address [address] [place] [address] Care Team Providers Care Legal Adviser Name Role Phone Kayla Wayne MD Primary Care Provider [phone] Allergies Active Allergy Reactions Criticality Noted Date Comments Mvleddt-Owe-Bfn Reductase Inhibitors Other (See Comments) 04/14/2024 Patient [...] Encounters Date Type Department Care Team Description 03/13/2025 External Device Data [facility] ABSTRACTION Provider, Abstract 03/08/2025 External Device Data [facility] ABSTRACTION Provider, Abstract 03/07/2025 External Device Data [facility] ABSTRACTION Provider, Abstract 03/06/2025 External Device Data [facility] ABSTRACTION Provider, [...] Weight - - Height 157.5 cm (5' 2) 08/17/2024 1:50 PM CDT Body Mass Index - - Plan of Treatment Upcoming Encounters Date Type Department Care Team (Late st Contact Info) Description 03/29/2025 2:30 PM CDT Office Visit [facility] Oncology and Hematology - [place] [address] [place] [address] Samuel Spivey MD [address] [facility] [address] [place] [address] Health Maintenance Due Date Last [...] HBA1C Q 6 MONTHS 09/10/2024 03/10/2024, Insurance AENA O MCR Care Teams Legal Adviser Relationship Specialty Start Date End Date Kayla Wayne MD [address] [place] [phone] PCP - General Family Practice 08/18/24
--- OUTSIDE RECORDS SUMMARY | 2025-03-22 14:49 | XMS_ITS | Clinical Summary ---
Author Organization [facility] [address] Address [address] [place] [address] Care Team Providers Care Linux Systems Engineer Name Role Phone Kayla Wayne MD Primary Care Provider [phone] Allergies Active Allergy Reactions Criticality Noted Date Comments Jhlkqhu-Yki-Uje Reductase Inhibitors Other (See comments) 04/14/2024 Patient [...] (two) times a day 4 Active vit C,H-Tt-ozsaq-leona tein-zeaxan (PreserVision AREDS-2) 250-90-40-1 mg capsule 1 [...] Active Problems Problem Noted Date Diagnosed Date Visit for wound check 03/14/2025 History of tobacco use 02/14/2025 Hyperlipidemia associated with type 2 diabetes m ellitus 02/14/2025 Hypertension associated with diabetes 02/14/2025 Stage 3 chronic kidney disease 02/14/2025 History of pulmonary embolism 02/14/2025 History of cardiac arrest 02/14/2025 History of stroke 02/14/2025 Encounters Date Type Department Care Team Description 03/14/2025 11:15 AM CDT Clinical Support [facility] Cardiology [address] [place] [address] [place] [phone] Visit for wound check (Primary Dx) 03/13/2025 Orders Only [facility] Cardiology [address] [place] [address] [place] [phone] Cornelio De León MD 03/01/2025 Orders Only [facility] Cardiology [address] [place] [address] [place] [phone] Mike Tang MD History of stroke (Primary Dx); History of loop recorder 02/19/2025 Telephone [facility] Cardiology [address] [place] [address] [place] [phone] Mike Tang MD 02/14/2025 1:15 PM CDT Office Visit [facility] Cardiology at [address] [place] [phone] Mike Tang MD History of stroke (Primary Dx); History of cardiac arrest; History of pulmonary embolism; Stage 3 chronic kidney disease, unspecified whether stage 3a or 3b CKD (HCC); Hypertension associated with diabetes (HCC); Hyperlipidemia associated with type 2 diabetes mellitus (HCC); History of tobacco use 01/16/2025 Telephone [facility] Cardiology [address] [place] [address] [place] [phone] Mike Tang MD from Last 3 Months Surgical History Surgery Date Site/Laterality Comments CATARACT EXTRACTION 2015 Medical History Medical History Date Comments Cataract [...] on file 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 Gender Identity Not on file Sexual Orientation [...] Procedure Name Priority Date/Time Associated Diagnosis Comments CARDIOLOGY DOCUMENT SCAN Routine 025 12:06 PM CDT ECG 12-LEAD Routine 02/14/2025 3:33 PM CDT History of stroke from Last 3 Months Results * Cardiology Document Scan (03/07/2025 12:06 PM CDT) Anatomical Region Laterality Modality Other us Cornelio De León MD CV CARDIAC SERVICES PROC EDURES Final Result * ECG 12 lead (02/14/2025 3:33 PM CDT) us Mike Tnag MD ECG ORDERABLES Final Res ult from Last 3 Months Insurance AETNA MEDICARE GOLD AETNA MEDICARE GOLD Care Teams Linux Systems Engineer Relationship Specialty Start Date End Date Kayla Wayne MD PCP - General Family Medicine 02/16/23
--- OUTSIDE RECORDS SUMMARY | 2025-03-22 14:49 | XMS_ITS | Referral Summary ---
Author Organization [place] [address] Address [address] [place] [address] [address] [place] [address] Care Team Providers Care Jackhammer Operator Name Role Phone Kayla Wayne MD Primary Care Provider Encounters Date Type Department Care Team Description 03/14/2025 11:15 AM CDT Clinical Support [facility] Medical [facility] Cardiology [address] [place] [address] [address] [place] [phone] Visit for wound check (Primary Dx) 03/13/2025 Orders Only [facility] Cardiology [address] [place] [address] [address] [place] [address] Cornelio De León MD 03/01/2025 Orders Only [facility] Cardiology [address] [place] [address] [place] [phone] Mike Tang MD History of stroke (Primary Dx); History of loop recorder 02/19/2025 Telephone [facility] Cardiology [address] [place] [address] [address] [place] [address] Mike Tang MD 02/14/2025 1:15 PM CDT Office Visit [facility] Cardiology at [address] [place] [address] Mike Tang MD History of stroke (Primary Dx); History of cardiac arrest; History of pulmonary embolism; Stage 3 chronic kidney disease, unspecified whether stage 3a or 3b CKD (HCC); Hypertension associated with diabetes (HCC); Hyperlipidemia associated with type 2 diabetes mellitus (HCC); History of tobacco use 01/16/2025 Telephone [facility] Medical Group Cardiology [address] [facility] [address] [facility] [place] [address] Mike Tang MD from Last 3 Months Allergies Active Allergy Reactions Criticality Noted Date Comments Awqyvfv-Aiu-Vdt Reductase Inhibitors Other (See comments) 04/14/2024 Patient [...] (two) times a day 4 Active vit C,D-Ql-omihp-leona tein-zeaxan (PreserVision AREDS-2) 250-90-40-1 mg capsule 1 [...] Hyperlipidemia associated with type 2 diabetes m savana 02/14/2025 Hypertension associated with diabetes 02/14/2025 Stage [...] on file 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
[2025-03-22 16:55] LABS: Free T4 Free Thyroxine 1.42 ng/dL (0.78-2.19)
[2025-03-22 23:30] LABS: Thyroid Stimulating Hormone < 0.015 uIU/mL (0.465-4.680); Total Triiodothyronine (T3) 1.04 NG/ML (0.82-1.58)
[2025-03-28 19:03] LABS: Thyroid Stimulating Immunoglob <89 % baseline (<140)
== END 2025-03-22 14:06 | disposition home or self-care (01) ==
PROVIDERS: PCP Family Medicine; Visit Provider Internal Medicine Endocrinology, Diabetes & Metabolism
DX: E05.90 Thyrotoxicosis, unspecified without thyrotoxic crisis or storm (principal)
CPT/HCPCS: 36415; 83519; 84439; 84443; 84445; 84480; 99202; G0463

== ENCOUNTER 2025-03-29 14:04 | Outpatient (CLI) | payer MEDICARE, SELFPAY ==
[2025-03-29 14:22] LABS: Basophils Percent Auto 0.5 % (0.2-1.2); Eosinophils Absolute Auto 0.3 K/mm3 (0-0.3); Eosinophils Percent Auto 3.3 % (0-4.4); Hematocrit 40.1 % (37.0-47.0); Hemoglobin 13.2 g/dL (12.0-15.0); Immature Granulocyte Absolute 0.02 K/mm3 (0.00-0.031); Immature Granulocyte Percent A 0.3 % (0-0.5); Lymphocytes Absolute Auto 1.12 K/mm3 (0.9-3.2); Lymphocytes Percent Auto 14.1 % (18.3-44.2); Mean Corpuscular HGB Conc 32.9 g/dl (32-36); Mean Corpuscular Hemoglobin 29.3 pg (26-34); Mean Corpuscular Volume 89.1 fl (80-100); Mean Platelet Volume 9.7 fl (7.4-10.4); Monocytes Absolute Auto 0.5 K/mm3 (0.1-0.6); Monocytes Percent Auto 6.5 % (2.6-8.5); Neutrophils Percent Auto 75.3 % (45.5-73.1); Platelet Count Result 239 k/mm3 (150-375); Red Cell Distribution Width 11.8 % (11.5-14.5)
[2025-03-29 14:27] LABS: Blood Urea Nitrogen 37 mg/dL (8-26); Carbon Dioxide 22 mmol/L (22-30); Chloride 105 mmol/L (98-109); Estimated Glomerular Filt Rate 22; Glucose 183 mg/dL (70-105); Ionized Calcium (POC) 1.17 mmol/L (1.11-1.31); Potassium 4.3 mmol/L (3.5-4.9); Sodium 140 mmol/L (138-146)
--- OUTSIDE RECORDS SUMMARY | 2025-03-29 14:40 | XMS_ITS | Encounter Summary ---
Author Organization [facility] Address [address] [place] [address] Care Team Providers Care Linemarker Name Role Phone Kayla Wayne MD Primary Care Provider [phone] Encounter Details Date Type Department Care Team (Late st Contact Info) Description 03/29/2025 2:30 PM CDT Office Visit [facility] Oncology and Hematology - [place] [address] [facility] [address] [place] [address] Samuel Spivey MD [address] [facility] [address] [place] [address] Arrived Social History Tobacco Use Types Packs/Day Years Used Date Smoking Tobacco: Former Cigarettes 1 57 Q uit: 03/09/2024 Tobacco Cessation:Counseling Given: Not Answered Alcohol Use Standard Drinks/Week Comments Never 0 (1 standard drink = 0.6 oz pur e alcohol) Comments Unknown Sex and Gender Information Value Date Recorded Sex Assigned at Not on file Legal Sex Female 3:04 PM CDT Gender Identity Not on file Sexual Orientation Not on file documented as of this encounter Last Filed Vital Signs Vital Sign Reading Time Taken Comments Blood Pressure 133/71 03/29/2025 2:25 PM CDT Pulse 69 03/29/2025 2:25 PM CDT Temperature 36.5 C (97.7 F) 03/29/2025 2:25 PM CDT Respiratory Rate 16 03/29/2025 2:25 PM CDT Oxygen Saturation 95% 03/29/2025 2:25 PM CDT Inhaled Oxygen Concentration - - Weight - - Height - - Body Mass Index - - documented in this encounter Plan of Treatment Not on file documented as of this encounter Visit Diagnoses Not on filedocumented in this encounter Care Teams Linemarker Relationship Specialty Start Date End Date Kayla Wayne MD [address] [place] [phone] PCP - General Family Practice 08/18/24 documented as of this encounter
--- OUTSIDE RECORDS SUMMARY | 2025-03-29 14:40 | XMS_ITS | Clinical Summary ---
Author Organization [facility] Address [address] [place] [address] Care Team Providers Care Midwife Name Role Phone Kayal Wayne MD Primary Care Provider [phone] Allergies Active Allergy Reactions Criticality Noted Date Comments Ohrhmbi-Rmb-Lzd Reductase Inhibitors Other (See Comments) 04/14/2024 Patient [...] 1 time daily as needed. 4 Active venlafaxine (EFFEXOR) 37.5 mg tablet Take 37.5 mg by mouth daily in the morning. Active Active Problems No known active problems Encounters Date Type Department Care Team Description 03/29/2025 2:30 PM CDT Office Visit [facility] Oncology and Hematology - [place] [address] [place] [address] Samuel Spivey MD Arrived 03/13/2025 External Device Data STL ABSTRACTION Provider, [...] DIABETES HBA1C Q 6 MONTHS 09/10/2024 03/10/2024, Medicare Ad[place] ([place]) Prev entative Visit/Annual Wellness Visit 10/18/2024 Insurance AETNA O MCR Care Teams Midwife Relationship Specialty Start Date End Date Kayla Wayne MD [address] [place] [phone] PCP - General Family Practice 08/18/24
--- OUTSIDE RECORDS SUMMARY | 2025-03-29 14:40 | XMS_ITS | Referral Summary ---
Author Organization [place] [address] [place] [address] Care Team Providers Care Social Secretary Name Role Phone Kayla Wayne MD Primary Care Provider [phone] Encounters Date Type Department Care Team Description 03/22/2025 3:00 PM CDT Clinical Support [facility] Cardiology [address] [place] [address] [address] [place] [address] Visit for wound check (Primary Dx) 03/14/2025 11:15 AM CDT Clinical Support [facility]iology [address] [place] [address] [address] [place] [address] Visit for wound check (Primary Dx) 03/13/[address] [facility] [address] [place] [address] [address] [place] [address] Cornelio De León MD 03/01/[address] [facility] [address] [place] [address] [place] [phone] Mike Tang MD History of stroke (Primary Dx); History of loop recorder 02/19/[address] [facility] [address] [place] [address] [address] [place] [address] Mike Tang MD 02/14/2025 1:15 PM CDT Office Visit [facility] at [address] [place] [address] Mike Tang MD History of stroke (Primary Dx); History of cardiac arrest; History of pulmonary embolism; Stage 3 chronic kidney disease, unspecified whether stage 3a or 3b CKD (HCC); Hypertension associated with diabetes (HCC); Hyperlipidemia associated with type 2 diabetes mellitus (HCC); History of tobacco use 01/16/2025 Telephone [facility] [address] [facility] [address], [place] [address] Mike Tang MD from Last 3 Months Allergies Active Allergy Reactions Criticality Noted Date Comments Tqeegig-Fyi-Zor Reductase Inhibitors Other (See comments) 04/14/2024 Patient [...] (two) times a day 4 Active vit C,V-Qr-erhlc-leona tein-zeaxan (PreserVision AREDS-2) 250-90-40-1 mg capsule 1 [...] 02/14/2025 Hyperlipidemia associated with type 2 diabetes kate sawant 02/14/2025 Hypertension associated with diabetes 02/14/2025 Stage [...] on file 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
--- OUTSIDE RECORDS SUMMARY | 2025-03-29 14:40 | XMS_ITS | Clinical Summary ---
Author Organization [facility] [address] Address [address] [place] [address] Care Team Providers Care Industrial Accountant Name Role Phone Kayla Wayne MD Primary Care Provider [phone] Allergies Active Allergy Reactions Criticality Noted Date Comments Opbuafo-Rgx-Udl Reductase Inhibitors Other (See comments) 04/14/2024 Patient [...] (two) times a day 4 Active vit C,F-Bb-xtapa-leona tein-zeaxan (PreserVision AREDS-2) 250-90-40-1 mg capsule 1 [...] Description 03/22/2025 3:00 PM CDT Clinical Support [facility] Cardiology [address] [place] [address] [place] [phone] Visit for wound check (Primary Dx) 03/14/2025 11:15 AM CDT Clinical Support [facility] Cardiology [address] [place] [address] [place] [phone] Visit for wound check (Primary Dx) 03/13/2025 Orders Only [facility] [address] [place] [address] [place] [phone] Cornelio De León MD 03/01/2025 Orders Only [facility]iology [address] [place] [address] [place] [phone] Mike Tang MD History of stroke (Primary Dx); History of loop recorder 02/19/2025 Telephone [facility]iology [address] [place] [address] [place] [phone] Mike Tang MD 02/14/2025 1:15 PM CDT Office Visit [facility]iology at [address] [place] [phone] Mike Tang MD History of stroke (Primary Dx); History of cardiac arrest; History of pulmonary embolism; Stage 3 chronic kidney disease, unspecified whether stage 3a or 3b CKD (HCC); Hypertension associated with diabetes (HCC); Hyperlipidemia associated with type 2 diabetes mellitus (HCC); History of tobacco use 01/16/2025 Telephone [facility] [address] [facility] [address] [place] [phone] Mike Tang MD from Last 3 [...] on file 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
--- OUTSIDE RECORDS SUMMARY | 2025-03-29 14:40 | XMS_ITS | Clinical Summary ---
Author Organization [facility] Address [address] [facility] [place] [address] Care Team Providers Care Errand Runner Name Role Phone Unavailable Primary Care Provider Unavailabl e Source Comments [facility],non-owned Affiliates and Associated Physician Practices is amultiple site organization consisting of ambulatory clinics and hospital sitesin [place], [place], [place] and [place]. This disclosure is being madepursuant to the Care Everywhere program and may not contain all information available regarding this patient. Last updated 18.[facility] Allergies Active Allergy Reactions Criticality Noted Date Comments Hmg-Coa-R Inhibitors Unknown 03/10/2024 Causes her legs to be restless, per . Medications * Be aware that medications may not be up to date on this document. Alwaysverify current medications with the patient. aspirin (Aspirin) 81 MG chew tablet Take 1 (one) tablet by mouth once daily Active vitamin D, ergocalciferol , (Drisdol) 1.25 MG (86910 UT) capsule Take 1 (one) capsule by [...] tablet by mouth once daily Active Multiple Vitamins-Surry als (PreserVision AREDS 2) capsule Take 2 [...] [facility] - Cardiology [address], [facility] [address] [place] [address] Acute ischemic stroke (HCC) 01/08/2025 Telephone [facility] - Cardiology [address] [facility], [facility] [address] [place] [address] Alyssa Parks RN Loop Recorder 12/28/2024 1:10 AM CDT Clinical Support [facility] - Cardiology [address] [facility], [facility] [address] [place] [address] Acute ischemic stroke from Last 3 Months [...] Comments Blood Pressure 106/61 09/28/2024 11:56 AM POLISHER HAND Pulse 64 09/28/2024 11:56 AM POLISHER HAND Temperature 36.4 C (97.5 F) 09/28/2024 11:56 AM POLISHER HAND Respiratory Rate 18 09/28/2024 11:5 6 AM POLISHER HAND Oxygen Saturation 98% 09/28/2024 11: 56 AM POLISHER HAND Inhaled Oxygen Concentration 30% 03/28/2024 8 :27 AM CDT Weight 95.1 kg (209 lb 11.2 oz) 024 11:56 AM POLISHER HAND Height 170.2 cm (5' 7) 09/28/2024 11:5 6 AM POLISHER HAND Body Mass Index 32.84 09/28/2024 11:56 AM POLISHER HAND Plan of Treatment Health Maintenance Due Date [...] this topic Medical Devices Implanted Type Area Metal Engineering Process Worker Device Identifier Shelf Expiration Date Model / Serial / Lot Sys Crd Mntr Rvl Linq Ii - [id number] Implanted:Qty: 1 on 03/15/2024 by Layne Bates MD at [facility] Left: Chest Wall [employer] [place] [id number] 02/02/2025 [id number] / [id number] / [id number] Description:loop implant Procedures Procedure Name Priority Date/Time Associated Diagnosis Comments [place] ILR DEVICE INTERROGAT REMOTE Routine 02/11/2025 2:39 PM CDT Acute ischemic stroke (HCC) CARDIAC PROCEDURE ORDER 01/23/2025 [place] ILR DEVICE INTERROGAT REMOTE Routine 2025 12:33 AM CDT Acute ischemic stroke BASIC METABOLIC PANEL (CALCIUM TOTAL) Routine 04/03/2024 10:21 PM CDT HEMOGLOBIN A1C Add on 03/09/2024 7:04 PM CDT from Last 3 Months or Most Recently Relevant to Health Maintenance Results * [place] ILR DEVICE INTERROGAT REMOTE (02/11/2025 2:39 PM [...] CARDIAC SERVICES ORDERABLES Fin al Result * [place] ILR DEVICE INTERROGAT REMOTE (2025 12:33 AM [...] 7 - 26 mg/dL 04/03/2024 11:02 PM [facility] Creatinine 1.33(H) 0.56 - 0.96 mg/dL 04/03/2024 11:02 PM [facility] Sodium 141 136 - 145 mmol/L 04/03/2024 11:02 PM [facility] Potassium 4.5 3.5 - 4.5 mmol/L 04/03/2024 11:02 PM [facility] Chloride 103 98 - 107 mmol/L 04/03/2024 11:02 PM [facility] CO2 29 22 - 29 mmol/L 04/03/2024 11:02 PM [facility] Glucose 133(H) 70 - 115 mg/dL 04/03/2024 11:02 PM [facility] Calcium 9.5 8.4 - 10.2 mg/dL 04/03/2024 11:02 PM [facility] Anion Gap 9 6 - 16 04/03/2024 11:02 PM [facility] BUN/Creatinine Ratio 23 7 - 23 04/03/2024 11:02 PM [facility] Osmolality Calculated 300(H) 275 - 295 mOsm/kg 04/03/2024 11:02 PM [facility] eGFR by CKD-EPI 42(L) >=90 mL/min/1.7 3 m2 04/03/2024 11:02 PM [facility] Blood BLOOD SPECIMEN / Unknown Venipuncture / Unknown 04/03/2024 10:21 PM CDT 04/03/2024 10:33 PM CDT Laureano Monk MD LAB - CHEMISTRY ORDERABLES Final Result Performing Organization Address City/[facility]/ZIP Co de Phone Number [facility] [address] [place] [address], [facility] [phone] * (ABNORMAL) HEMOGLOBIN A1C (03/09/2024 7:04 PM CDT) Hemoglobin A1c 6.5(H) <=5.6 % 03/10/2024 10:01 AM CDT [facility] Estimated Average Glucose 140 mg/dL 03/10/2024 10:01 AM CDT [facility] Comment: HbA1c Interpretation: Normal : < 5.7% Pre-diabetes: 5.7-6.4% Diabetes: Equal to or greater than 6.5% Test results diagnostic of diabetes should be repeated for confirmation. Treatment target values recommended by ADA and other clinical organizations should be used to evaluate metabolic control in patients. Reference: [place] Diabetes Association, Standards of Care in Diabetes [...] ORDERAB LES Final Result Performing Organization Address City/[facility]/ZIP Co de Phone Number [facility] [address] [place] [address], [facility] [phone] from Last 3 Months or Most Recently Relevant to Health Maintenance Insurance AETNA MEDICARE ADV AETNA MEDICARE ADV Advance Directives Documents on File Type Date Recorded Patient Topographical Surveyor Expl anation Adv Directive/Living Will/POA 01/31/2025 9:59 [...]
[2025-03-29 16:41] LABS: Alanine Aminotransferase 15 U/L (6-35); Albumin Level 4.1 g/dL (3.5-5.1); Alkaline Phosphatase 84 U/L (38-126); Anion Gap 9 mmol/L (4-12); Aspartate Amino Transferase 31 U/L (14-36); Bilirubin,Total 0.2 mg/dL (0.2-1.3); Blood Urea Nitrogen 38 mg/dL (7-17); Calcium 9.6 mg/dL (8.4-10.2); Carbon Dioxide 23 mmol/L (22-30); Chloride 105 mmol/L (98-107); Estimated Glomerular Filt Rate 24; Glucose 174 mg/dL (65-110); Potassium 4.3 mmol/L (3.4-5.0); Sodium 137 mmol/L (137-145); Total Protein 7.5 g/dL (6.3-8.2)
== END 2025-03-29 14:05 | disposition home or self-care (01) ==
LOC: ANHLAB 14:05
PROVIDERS: PCP Family Medicine; Visit Provider Internal Medicine Hematology & Oncology
DX: I26.92 Saddle embolus of pulmonary artery without acute cor pulmonale (principal); I27.82 Chronic pulmonary embolism
CPT/HCPCS: 36415; 80047; 80053; 85025

== ENCOUNTER 2025-06-04 13:35 | Outpatient (CLI) | payer MEDICARE, SELFPAY ==
--- OUTSIDE RECORDS SUMMARY | 2025-06-04 14:43 | XMS_ITS ---
Author Organization [facility] Care Team Providers Care Convex Grinder Name Role Phone Kalin Kirk Allergies and adverse reactions Code CodeSystem Substance Reaction Severity StartDate Concern Status 005527899 SNOMED CT Statins Unknown 04/14/2024 active Care Team Name Role Address Phone Organization Dates Kalin Kirk PCP [address] [place], [address], [place] (Office): : [facility] 04/14/2024 - 05/11/2024 Immunizations Immunization Status Vaccine Details Vaccine Code CodeSystem Date Notes TB 2 Step Mantoux Skin Test completed tuberculin skin test; unspecified formulation Given 0.1 ml Left Forearm subcutaneously Step 1 of Multi-step with next step required 98 CVX created date: 04/21/2024 consent date: 04/21/2024 administere d date: 04/21/2024 influenza, unspecified formulation normal influenza virus vaccine, unspecified formulation 88 CVX created date: 04/24/2024 consent date: 04/24/2024 pneumococcal, unspecified formulation normal pneumococcal vaccine, unspecified formulation 109 CVX created date: 04/24/2024 consent date: 04/24/2024 Mental Status Section Date Assessment Total Score Description 05/11/2024 BIMS 10 moderate cognit adonis impairment CAM 0 No delirium ind icated PHQ-9 23 severe depressi on 04/21/2024 BIMS 10 moderate cognit adonis impairment CAM 0 No delirium ind icated PHQ-9 23 severe depressi on Problems Problem # Description Date of onset Resolved Date Code CodeSystem Concern Status 1 COVID-19 04/30/[address] active 2 ANOREXIA 04/14/[address] active 3 ANXIETY DISORDER, UNSPECIFIED 04/14/[address] active 4 CEREBRAL INFARCTION DUE TO UNSPECIFIED OCCLUSION OR STENOSIS OF BASILAR ARTERY 04/14/[address] active 5 DEPRESSION, UNSPECIFIED 04/14/[address] active 6 DYSPHAGIA FOLLOWING UNSPECIFIED CEREBROVASCULAR DISEASE 04/14/[address] active 7 ESSENTIAL (PRIMARY) HYPERTENSION 04/14/[address] active 8 HEMIPLEGIA AND HEMIPARESIS FOLLOWING CEREBRAL INFARCTION AFFECTING RIGHT DOMINANT SIDE 04/14/[address] active 9 HYPERLIPIDEMIA, UNSPECIFIED 04/14/[address] active 10 INSOMNIA, UNSPECIFIED 04/14/[address] active 11 SADDLE EMBOLUS OF PULMONARY ARTERY WITHOUT ACUTE COR PULMONALE 04/14/[address] active 12 TYPE 2 DIABETES MELLITUS WITHOUT COMPLICATIONS 04/14/[address] active Reason for Referral No Reasons for Referral Entered Social History Social History Observation Description Start Date End Date Code Code System Current Smoking Status Tobacco smoking consumption unknown 450372961 SNOMED CT Sex Assigned At Female 1950 01100-6 [facility] Gender Identity Vital Signs Code Code System Vitals Name Values and Units Timing Information 16868-4 [facility] Pain Level Value=0.0 05/11/2024 9279-1 LOINC Respiratory Rate Value=18.0 Units=/m in 05/11/2024 8462-4 LOINC Blood Pressure-Diastolic Value=70 Un its=mmHg 05/11/2024 8480-6 LOINC Blood Pressure-Systolic Jmfnm=345 Un its=mmHg 05/11/2024 8310-5 [facility] Body Temperature Value=98.1 Units= F 05/11/2024 8867-4 [facility] Heart rate Value=84.0 Units=/min 77145-3 [facility] O2 % BldC Oximetry Value=98.0 Units= % 05/11/2024 2339-0 [facility] Blood Sugar Ofogp=207.0 Units=mg/dL 05/11/2024 8302-2 [facility] Height Value=69.0 Units=Inches 05/07/2024 52045-6 [facility] Weight Kmgqa=567.0 Units=Lbs 05/2024
--- OUTSIDE RECORDS SUMMARY | 2025-06-04 14:43 | XMS_ITS | Clinical Summary ---
Author Organization [facility] Address [address] [place] [address] Care Team Providers Care Safety Representative Name Role Phone Kayla Wayne MD Primary Care Provider [phone] Allergies Active Allergy Reactions Criticality Noted Date Comments Pztqyet-Jey-Rwo Reductase Inhibitors Other (See Comments) 04/14/2024 Patient [...] Encounters Date Type Department Care Team Description 05/02/2025 External Device Data ST[facility] ABSTRACTION Provider, Abstract 05/01/2025 External Device Data [facility] ABSTRACTION Provider, Abstract 04/03/2025 External Device Data [facility] ABSTRACTION Provider, Abstract 03/30/2025 Orders Only [facility] - [address] [place] [address] Samuel Spivey MD 03/29/2025 2:30 PM CDT Office Visit [facility] [address] [place] [address] Samuel Spivey MD 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) (Primary Dx) 03/29/2025 Orders Only [facility] - [address] [place] [address] Samuel Spivey MD 03/13/2025 External Device Data STL ABSTRACTION Provider, [...] ) (1 - 1-dose 75+ series) 01/11/2024 DIABETES HBA1C Q 6 MONTHS 09/10/2024 03/10/2024, INFLUENZA VACCINE (#1) 2025 Procedures Procedure Name Priority Date/Time Associated Diagnosis Comments BASIC METABOLIC PANEL Routine 03/29/2025 4:02 PM CDT CBC WITH AUTODIFFERENTIAL Routine 2024 4:01 PM CDT COMPREHENSIVE METABOLIC PANEL Routine 03/29/2025 9:39 AM CDT from Last 3 Months Results * BASIC METABOLIC PANEL (03/29/2025 4:02 PM CDT) Blood Samuel Spivey MD CHEMISTRY ORDERABLES Final Resu lt * CBC WITH AUTODIFFERENTIAL (03/29/2025 4:01 PM CDT) Blood us Samuel Spivey MD HEMATOLOGY ORDERABLES Final Res ult * COMPREHENSIVE METABOLIC PANEL (03/29/2025 9:39 AM CDT) Blood us Samuel Spivey MD CHEMISTRY ORDERABLES Final Resu lt from Last 3 Months [facility] [place] [place] [facility] [place] [place] Address: [facility] [address] [place] [address] Care Teams Safety Representative Relationship Specialty Start Date End Date Kayla Wayne MD [address] [place] [phone] PCP - General Family Practice 08/18/24
--- OUTSIDE RECORDS SUMMARY | 2025-06-04 14:43 | XMS_ITS | Encounter Summary ---
Author Organization [facility] Healthcare Address [address] [place] [address] Care Team Providers Care Marine Engineering Teacher Name Role Phone Kayla Wayne MD Primary Care Provider [phone] Encounter Details Date Type Department Care Team (Late st Contact Info) Description 07/19/2024 Orders Only [facility] Health Information Management [address] [place] [address] Scanning, Provider Social History Tobacco Use Types Packs/Day Years Used Date Smoking Tobacco: Never Assessed Comments Unknown Sex and Gender Information Value Date Recorded Sex Assigned at Not on file 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 Gender Identity Not on file Sexual Orientation Not on file documented as of this encounter Plan of Treatment Not on file documented as of this encounter Procedures Procedure Name Priority Date/Time Associated Diagnosis Comments CARDIOLOGY DOCUMENT SCAN 07/19/2024 documented in this encounter Results * Cardiology Document Scan (07/19/2024) Anatomical Region Laterality Modality Other us Provider Scanning CV CARDIAC SERVICES PROCEDURES Final Result documented in this encounter Visit Diagnoses Not on filedocumented in this encounter Care Teams Marine Engineering Teacher Relationship Specialty Start Date End Date Kayla Wayne MD PCP - General Family Medicine 02/16/23 documented as of this encounter
--- OUTSIDE RECORDS SUMMARY | 2025-06-04 14:43 | XMS_ITS | Encounter Summary ---
Author Organization [facility] Healthcare Address [address] [place] [address] Care Team Providers Care Tobacco Dipper Name Role Phone Kayla Wayne MD Primary Care Provider [phone] Encounter Details Date Type Department Care Team (Late st Contact Info) Description 03/07/2025 Orders Only 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 Gender Identity Not on file Sexual Orientation Not on file documented as of this encounter Plan of Treatment Not on file documented as of this encounter Procedures Procedure Name Priority Date/Time Associated Diagnosis Comments CARDIOLOGY DOCUMENT SCAN 03/07/2025 documented in this encounter Results * Cardiology Document Scan (03/07/2025) Anatomical Region Laterality Modality Other us Provider Scanning CV CARDIAC SERVICES PROCEDURES Final Result documented in this encounter Visit Diagnoses Not on filedocumented in this encounter Care Teams Tobacco Dipper Relationship Specialty Start Date End Date Kayla Wayne MD PCP - General Family Medicine 02/16/23 documented as of this encounter
--- OUTSIDE RECORDS SUMMARY | 2025-06-04 14:43 | XMS_ITS | Clinical Summary ---
Author Organization [facility] Address [address] [place] [address] Care Team Providers Care Marine Safety Officer Name Role Phone Unavailable Primary Care Provider Unavailabl e Source Comments [facility],non-owned Affiliates and Associated Physician Practices is amultiple site organization consisting of ambulatory clinics and hospital sitesin [place], [place], [place] and [place]. This disclosure is being madepursuant to the Care Everywhere program and may not contain all information available regarding this patient. Last updated 18.[facility] Allergies Active Allergy Reactions Criticality Noted Date Comments Hmg-Coa-R Inhibitors Unknown 03/10/2024 Causes her legs to be restless, per . Medications * Be aware that medications may not be up to date on this document. Alwaysverify current medications with the patient. aspirin (Aspirin) 81 MG chew tablet Take 1 (one) tablet by mouth once daily Active vitamin D, ergocalciferol , (Drisdol) 1.25 MG (02641 UT) capsule Take 1 (one) capsule by [...] tablet by mouth once daily Active Multiple Vitamins-Cdl A Driver als (PreserVision AREDS 2) capsule Take 2 [...] hr bef adm to crnt fac 03/09/2024 Social History Tobacco Use Types Packs/Day Years [...] Comments Blood Pressure 106/61 09/28/2024 11:56 AM SURVEILLANCE SYSTEMS ENGINEER Pulse 64 09/28/2024 11:56 AM SURVEILLANCE SYSTEMS ENGINEER Temperature 36.4 C (97.5 F) 09/28/2024 11:56 AM SURVEILLANCE SYSTEMS ENGINEER Respiratory Rate 18 09/28/2024 11:5 6 AM SURVEILLANCE SYSTEMS ENGINEER Oxygen Saturation 98% 09/28/2024 11: 56 AM SURVEILLANCE SYSTEMS ENGINEER Inhaled Oxygen Concentration 30% 03/28/2024 8 :27 AM CDT Weight 95.1 kg (209 lb 11.2 oz) 024 11:56 AM SURVEILLANCE SYSTEMS ENGINEER Height 170.2 cm (5' 7) 09/28/2024 11:5 6 AM SURVEILLANCE SYSTEMS ENGINEER Body Mass Index 32.84 09/28/2024 11:56 AM SURVEILLANCE SYSTEMS ENGINEER Plan of Treatment Health Maintenance Due Date [...] DIABETES - URINE PROTEIN SCREENING 10/18/2024 MEDICARE AWV CALENDAR YEAR 2024 DIABETES-SERUM CREATININE 04/03/20252023, 04/02/2024, 04/01/2024, Additional history exists INFLUENZA VACCINE (#1) 2025 , 07/14/2022, 07/07/2021, Additional history exists HEPATITIS B [...] this topic Medical Devices Implanted Type Area Education Assistant Device Identifier Shelf Expiration Date Model / Serial / Lot Sys Crd Mntr Rvl Linq Ii - [id number] Implanted:Qty: 1 on 03/15/2024 by Layne Bates MD at [facility] Left: Chest Wall Medtron [place]in [id number] 02/02/2025 [id number] / [id number] / [id number] Description:loop implant Procedures Procedure Name Priority Date/Time Associated Diagnosis Comments BASIC METABOLIC PANEL (CALCIUM TOTAL) Routine 04/03/2024 10:21 PM CDT HEMOGLOBIN A1C Add on 03/09/2024 7:04 PM CDT from Last 3 Months or Most Recently Relevant to Health Maintenance Results * (ABNORMAL) BASIC METABOLIC PANEL (CALCIUM TOTAL) (04/03/2024 10:21 PM CDT) BUN 31(H) 7 - 26 mg/dL 04/03/2024 11:02 PM CDT [facility] Creatinine 1.33(H) 0.56 - 0.96 mg/dL 04/03/2024 11:02 PM CDT [facility] Sodium 141 136 - 145 mmol/L 04/03/2024 11:02 PM CDT [facility] Potassium 4.5 3.5 - 4.5 mmol/L 04/03/2024 11:02 PM [facility] Chloride 103 98 - 107 mmol/L 04/03/2024 11:02 PM [facility] CO2 29 22 - 29 mmol/L 04/03/2024 11:02 PM [facility] Glucose 133(H) 70 - 115 mg/dL 04/03/2024 11:02 PM [facility] Calcium 9.5 8.4 - 10.2 mg/dL 04/03/2024 11:02 PM [facility] Anion Gap 9 6 - 16 04/03/2024 11:02 PM [facility] BUN/Creatinine Ratio 23 7 - 23 04/03/2024 11:02 PM [facility] Osmolality Calculated 300(H) 275 - 295 mOsm/kg 04/03/2024 11:02 PM [facility] eGFR by CKD-EPI 42(L) >=90 mL/min/1.7 3 m2 04/03/2024 11:02 PM [facility] Blood BLOOD SPECIMEN / Unknown Venipuncture / Unknown 04/03/2024 10:21 PM CDT 04/03/2024 10:[address] [facility] Laureano Monk MD LAB - CHEMISTRY ORDERABLES Final Result [facility] [address] [place] [address], [facility] [phone] * (ABNORMAL) HEMOGLOBIN A1C (03/09/2024 7:[address] [facility]) Hemoglobin A1c 6.5(H) <=5.6 % 03/10/2024 10:01 AM [facility] Estimated Average Glucose 140 mg/dL 03/10/2024 10:01 AM [facility] Comment: HbA1c Interpretation: Normal : < 5.7% Pre-diabetes: 5.7-6.4% Diabetes: Equal to or greater than 6.5% Test results diagnostic of diabetes should be repeated for confirmation. Treatment target values recommended by ADA and other clinical organizations should be used to evaluate metabolic control in patients. Reference: [place] Diabetes Association, Standards of Care in Diabetes [...] LAB - CHEMISTRY ORDERAB LES Final Result [facility] [address] [place] [address], [facility] [phone] from Last 3 Months or Most Recently Relevant to Health Maintenance Insurance AETNA MEDICARE ADV AETNA MEDICARE ADV Advance Directives Documents on File Type Date Recorded Patient News Correspondent Expl anation Adv Directive/Living Will/POA 01/31/2025 9:59 [...]
--- OUTSIDE RECORDS SUMMARY | 2025-06-04 14:43 | XMS_ITS | Encounter Summary ---
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
--- OUTSIDE RECORDS SUMMARY | 2025-06-04 14:43 | XMS_ITS | Clinical Summary ---
Author Organization [facility] [address] Address [address] [place] [address] Care Team Providers Care Visual Basic Programmer Name Role Phone Kayla Wayne MD Primary Care Provider [phone] Allergies Active Allergy Reactions Criticality Noted Date Comments Jjbauiu-Qlv-Oux Reductase Inhibitors Other (See comments) 04/14/2024 Patient [...] (two) times a day 4 Active vit C,X-Ws-qzohp-leona tein-zeaxan (PreserVision AREDS-2) 250-90-40-1 mg capsule 1 [...] Description 03/22/2025 3:00 PM CDT Clinical Support [facility] Cardiology [address] [facility] [address] [place] [phone] Visit for wound check (Primary Dx) 03/14/2025 11:15 AM CDT Clinical Support [facility] Cardiology [address] [facility] [address] [place] [phone] Visit for wound check (Primary Dx) 03/13/2025 Orders Only [facility] Cardiology [address] [facility] [address] [place] [phone] Cornelio De León MD 03/07/2025 Orders Only [facility] Health Information Management [address] [place] [address] Scanning, Provider from Last 3 Months Surgical History Surgery Date Site/Laterality Comments CATARACT EXTRACTION 2014 Medical History Medical History Date Comments Cataract Hypertension 2004 Stroke (HCC) 03/09/24 Chronic kidney disease 2019 Diabetes mellitus (HCC) 2009 Anxiety Family History Medical History Relation Name Comments Cancer Father Sunny Mark Hypertension Mother Anabelle Mark Relation Name Status Comments Father Sunny Mark Alive Mother Anabelle Mark Alive Social History Tobacco Use Types Packs/Day Years Used Date Smoking Tobacco: Former Cigarettes Smokeless Tobacco: Never Tobacco Cessation:Counseling Given: Not Answered Comments Unknown Sex and Gender Information Value Date Recorded Sex Assigned at Not on file Legal Sex Female 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 Gender Identity Not on file Sexual Orientation [...] 1968 Well Visit 65+ 2014 Covid-19 Vaccine (6 - 2023-2 5 season) 2024 08/19/2022, 03/17/2022, 08/26/2021, Additional history exists Hemoglobin A1C 09/09/2024 03/09/2024 Influenza Vaccine (#1) 2025 2, 07/07/2021, 07/09/2020, Additional history exists Zoster Vaccine Completed 11/08/2018, 06/27/2018 Pneumococcal vaccine 65+ Completed 05/30/2020, 12/16 Procedures Procedure Name Priority Date/Time Associated Diagnosis Comments CARDIOLOGY DOCUMENT SCAN Routine 025 12:06 PM CDT CARDIOLOGY DOCUMENT SCAN 03/07/2025 from Last 3 Months Results * Cardiology Document Scan (03/07/2025 12:06 PM CDT) Anatomical Region Laterality Modality Other us Cornelio De León MD [facility] CARDIAC SERVICES PROC EDURES Final Result * Cardiology Document Scan (03/07/2025) Anatomical Region Laterality Modality Other us Provider Scanning CV CARDIAC SERVICES PROCEDURES Final Result from Last 3 Months Insurance AETNA [facility]IC[facility] GOLD [facility] [place] [address] AETNA MEDICARE GOLD Care Teams Visual Basic Programmer Relationship Specialty Start Date End Date Kayla Wayne MD PCP - General Family Medicine 02/16/23
[2025-06-04 14:51] LABS: Free T4 Free Thyroxine 0.90 ng/dL (0.78-2.19)
[2025-06-04 15:05] LABS: Thyroid Stimulating Hormone 0.164 uIU/mL (0.465-4.680)
== END 2025-06-04 13:36 | disposition home or self-care (01) ==
PROVIDERS: PCP Family Medicine; Visit Provider Internal Medicine Endocrinology, Diabetes & Metabolism
DX: E05.90 Thyrotoxicosis, unspecified without thyrotoxic crisis or storm (principal)
CPT/HCPCS: 36415; 84439; 84443; 99212; G0463

== ENCOUNTER 2025-08-04 14:34 | Inpatient (IN) | payer MEDICARE, SELFPAY ==
[2025-08-04] VITALS (21 sets, daily range): BP systolic 129–173; BP diastolic 54–97; PULSE 72–88; RESP 19–31; TEMP 36.6–36.9; O2SAT 92–98; BMI 36.8
--- NOTE | ~2025-08-04 | XR_ITS ---
XR chest 1V portable 08/07/2025 11:12 Indication: New onset of chest pain Procedure: AP portable chest Comparison: Comparison to multiple prior studies sequentially, with oldest reviewed study dated 07/17/2024. Findings: Cardiomegaly with progression of pulmonary edema. Small right pleural effusion. No pneumothorax. No acute osseous abnormality. Impression: 1: Cardiomegaly with pulmonary edema. 2: Small right pleural effusion. Reviewed, dictated and finalized at location O. Impression: 1: Cardiomegaly with pulmonary edema. 2: Small right pleural effusion.
--- NOTE | ~2025-08-04 | XR_ITS ---
EXAMINATION: [id number], 08/07/2025 10:05 CDT HISTORY: POST RIGHT THORACENTESIS COMPARISON: No comparisons available. Technique: Single view. Findings: Small basilar infiltrates superimposed on chronic lung disease with trace right pleural effusion. No pneumothorax. Heart is normal size. Mediastinal and hilar contours are within normal limits. Bony thorax no acute abnormality. Impression: Bilateral pneumonia. No pneumothorax Reviewed, dictated and finalized at location P. Impression: Bilateral pneumonia. No pneumothorax
--- NOTE | ~2025-08-04 | US_ITS ---
EXAMINATION: US venous doppler LE RT DATE: 08/05/2025 10:06 INDICATION: Right calf pain. TECHNIQUE: Grayscale ultrasound images without and with compression and Doppler ultrasound images of the right lower extremity veins were obtained. COMPARISON: Ultrasound 07/17/2024 FINDINGS: The visualized portions of right common femoral vein, profunda (deep) femoral vein, femoral vein, popliteal vein, peroneal veins, posterior tibial veins, and greater saphenous vein outflow are patent. IMPRESSION: 1. No deep venous thrombosis. Reviewed, dictated and finalized at location E.
--- NOTE | ~2025-08-04 | XR_ITS ---
EXAMINATION: XR chest 2V, 08/04/2025 15:35 CDT HISTORY: SOB COMPARISON: No comparisons available. Technique: 2 views obtained. Findings: Moderate pulmonary venous congestion. Moderate right basilar infiltrate and effusion. No pneumothorax. Moderate cardiomegaly. Mediastinal and hilar contours are within normal limits. Bony thorax no acute abnormality. Impression: CHF. Superimposed right lower lobe pneumonia Reviewed, dictated and finalized at location P. Impression: CHF. Superimposed right lower lobe pneumonia
--- NOTE | ~2025-08-04 | US_ITS ---
EXAMINATION: US thoracentesis DATE: 08/07/2025 10:19 INDICATION: Large right pleural effusion. TECHNIQUE: The procedure and its risks and benefits were discussed with the patient. Potential risks discussed included bleeding, infection, and pneumothorax. The patient understood the risks and agreed to proceed. The skin was prepped and draped in sterile fashion. 1% lidocaine was used for local anes thesia. Under ultrasound guidance, a 5 Fr catheter with trochar was advanced into the right pleural effusion. Fluid was aspirated. The catheter was removed, and a dressing was applied. There were no immediate complications. FINDINGS: Ultrasound images demonstrate a large right pleural effusion and the catheter within the fluid. IMPRESSION: 1. Successful ultrasound-guided thoracentesis yielding 1100 mL of brendon-colored fluid. Reviewed, dictated and finalized at location A. IMPRESSION: 1. Successful ultrasound-guided thoracentesis yielding 1100 mL of brendon-colore d fluid.
--- NOTE | ~2025-08-04 | CT_ITS ---
EXAMINATION: CT diagnostic chest wo martin, 08/04/2025 16:00 CDT HISTORY: SOB COMPARISON: No comparisons available. TECHNIQUE: CT scan of the chest was performed without IV contrast. One or more of the following dose reduction techniques were used: automated exposure control, adjustment of the mA and/or kV according to patient size, use of iterative reconstruction technique. FINDINGS: No significant coronary calcification is present ([id number]) LUNGS: Large simple appearing right pleural effusion. No tracheomalacia. No bronchiectasis. Minimal emphysematous changes. Minimal pulmonary fibrotic changes. Small right upper and right lower lobe infiltrates. HEART AND PERICARDIUM: Mild cardiomegaly. Small simple appearing pericardial effusion. AORTA: Normal caliber aorta. ADENOPATHY/MEDIASTINUM: None. LIMITED VIEWS OF THE ABDOMEN: Cholelithiasis. Left kidney midpole simple appearing renal cyst 2 x 2 cm. OSSEOUS STRUCTURES: No sclerotic or lytic lesions. No acute rib fractures. Moderate loss of vertebral height and disc height throughout the visualized spine with kyphosis noted. OVERLYING SOFT TISSUES: Unremarkable. THYROID: Nonspecific heterogeneity of the thyroid lobes bilaterally with subcentimeter nodules suspected. IMPRESSION: Large focus of right-sided bronchopneumonia. Bronchoscopy may be of benefit to further evaluate. Reviewed, dictated and finalized at location P.
--- NOTE | 2025-08-04 14:42 | ECG_ITS ---
Test Date: 2025-08-04 14:45:36 Measurements Intervals [place] Rate: 78 P: 65 AL: 182 QRS: 14 QRSD: 84 T: 35 QT: 358 QTc: 410 Interpretive Statements SINUS RHYTHM MINIMAL Q WAVES- INFERIOR LEADS BASELINE ARTIFACT- I, II, III, AVR, AVL, AVF, V1-V6 BORDERLINE ECG Compared to ECG 07/17/2024 11:02:24 HEART RATE HAS DECREASED Electronically Signed On 08-04-2025 18:31:38 CDT by Santiago Davila D.O.
[2025-08-04 14:52] LABS: Hematocrit 39.2 % (37.0-47.0); Hemoglobin 12.5 g/dL (12.0-15.0); Immature Granulocyte Percent A 0.3 % (0-0.5); Lymphocytes Absolute Auto 1.06 K/mm3 (0.9-3.2); Mean Corpuscular HGB Conc 31.9 g/dl (32-36); Mean Corpuscular Hemoglobin 29.3 pg (26-34); Mean Corpuscular Volume 91.8 fl (80-100); Nucleated Red Blood Cells Absolute Auto 0.000 K/mm3 (0.0-0.012); Nucleated Red Blood Cells Perc 0.0 % (0.0-0.2); Platelet Count Result 255 k/mm3 (150-375); Red Blood Count 4.27 M/mm3 (4.2-5.4); White Blood Count 8.7 K/mm3 (4.5-10.0)
[2025-08-04 15:01] LABS: Alanine Aminotransferase 16 U/L (6-35); Albumin Level 3.6 g/dL (3.5-5.1); Alkaline Phosphatase 94 U/L (38-126); Anion Gap 7 mmol/L (4-12); Aspartate Amino Transferase 26 U/L (14-36); Bilirubin,Total 0.1 mg/dL (0.2-1.3); Blood Urea Nitrogen 26 mg/dL (7-17); Calcium 8.7 mg/dL (8.4-10.2); Carbon Dioxide 30 mmol/L (22-30); Chloride 99 mmol/L (98-107); Estimated CRCL calculation 25 ml/min; Estimated Glomerular Filt Rate 26; Glucose 241 mg/dL (65-110); Potassium 3.9 mmol/L (3.4-5.0); Sodium 136 mmol/L (137-145); Total Protein 7.3 g/dL (6.3-8.2)
--- OUTSIDE RECORDS SUMMARY | 2025-08-04 15:08 | XMS_ITS | Encounter Summary ---
Author Organization [facility] Healthcare Address [address] [place] [address] Care Team Providers Care Logistics Director Name Role Phone Kayla Wayne MD Primary Care Provider [phone] Encounter Details Date Type Department Care Team (Late st Contact Info) Description 11/20/2024 Orders Only [facility] Health Information Management [address] [place] [address] Scanning, Provider Social History Tobacco Use Types Packs/Day Years Used Date Smoking Tobacco: Never Assessed Comments Unknown Sex and Gender Information Value Date Recorded Sex Assigned at Not on file Legal Sex Female 3:28 PM 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
--- OUTSIDE RECORDS SUMMARY | 2025-08-04 15:08 | XMS_ITS | Clinical Summary ---
Author Organization [facility] Address [address] [place] [address] Care Team Providers Care Breaker Machine Tender Name Role Phone Kayla Wayne MD Primary Care Provider [phone] Allergies Active Allergy Reactions Criticality Noted Date Comments Fxrwuyx-Nea-Dki Reductase Inhibitors Other (See Comments) 04/14/2024 Patient [...] Encounters Date Type Department Care Team Description 07/10/2025 External Device Data ST[facility] ABSTRACTION Provider, Abstract 07/03/2025 External Device Data [facility] ABSTRACTION Provider, Abstract 06/26/2025 External Device Data [facility] ABSTRACTION Provider, Abstract [...] MONTHS 09/10/2024 03/10/2024, INFLUENZA VACCINE (#1) 2025 Insurance AETNA O MCR Care Teams Breaker Machine Tender Relationship Specialty Start Date End Date Kayla Wayne MD [address] [place] [phone] PCP - General Family Practice 08/18/24
--- OUTSIDE RECORDS SUMMARY | 2025-08-04 15:08 | XMS_ITS | Clinical Summary ---
Author Organization [facility] Address [address] [facility] [place] [address] Care Team Providers Care Regional Operations Director Name Role Phone Unavailable Primary Care Provider Unavailabl e Source Comments [facility],non-owned Affiliates and Associated Physician Practices is amultiple site organization consisting of ambulatory clinics and hospital sitesin [place], [place], [place] and [place]. This disclosure is being madepursuant to the Care Everywhere program and may not contain all information available regarding this patient. Last updated 18.[facility] Allergies Active Allergy Reactions Criticality Noted Date Comments Hmg-Coa-R Inhibitors Unknown 03/10/2024 Causes her legs to be restless, per . Medications * Be aware that medications may not be up to date on this document. Alwaysverify current medications with the patient. aspirin (Aspirin) 81 MG chew tablet Take 1 (one) tablet by mouth once daily Active vitamin D, ergocalciferol , (Drisdol) 1.25 MG (96522 UT) capsule Take 1 (one) capsule by [...] tablet by mouth once daily Active Multiple Vitamins-Meat Counter Clerk als (PreserVision AREDS 2) capsule Take 2 [...] Comments Blood Pressure 106/61 09/28/2024 11:56 AM WARRANTY COORDINATOR Pulse 64 09/28/2024 11:56 AM WARRANTY COORDINATOR Temperature 36.4 C (97.5 F) 09/28/2024 11:56 AM WARRANTY COORDINATOR Respiratory Rate 18 09/28/2024 11:5 6 AM WARRANTY COORDINATOR Oxygen Saturation 98% 09/28/2024 11: 56 AM WARRANTY COORDINATOR Inhaled Oxygen Concentration 30% 03/28/2024 8 :27 AM CDT Weight 95.1 kg (209 lb 11.2 oz) 024 11:56 AM WARRANTY COORDINATOR Height 170.2 cm (5' 7) 09/28/2024 11:5 6 AM WARRANTY COORDINATOR Body Mass Index 32.84 09/28/2024 11:56 AM WARRANTY COORDINATOR Plan of Treatment Health Maintenance Due Date [...] SCREENING 04/12/2024 DIABETES-FOOT EXAM WITH MONOFILAMENT 04/12/2024 DIABETES-HGB A1C 09/09/2024 03/09/2024 DEPRESSION SCREENING 10/18/2024 03/15/2024 DIABETES - URINE PROTEIN SCREENING 10/18/2024 MEDICARE AWV CALENDAR YEAR 2024 DIABETES-SERUM CREATININE 04/03/20252023, 04/02/2024, 04/01/2024, Additional history exists COVID-19 VACCINE ( season) 2025 08/19/2022, 03/17/2022, 08/26/2021, Additional history exists INFLUENZA VACCINE (#1) 2025 [...] this topic Medical Devices Implanted Type Area Manager Asset Management Device Identifier Shelf Expiration Date Model / Serial / Lot Sys Crd Mntr Rvl Linq Ii - [id number] Implanted:Qty: 1 on 03/15/2024 by Layne Bates MD at [facility] Left: Chest Wall Medtron [place] [id number] 02/02/2025 [id number] / [id number] / [id number] Description:loop implant Procedures Procedure Name Priority Date/Time Associated Diagnosis Comments BASIC METABOLIC PANEL (CALCIUM TOTAL) Routine 04/03/2024 10:21 PM CDT HEMOGLOBIN A1C Add on 03/09/2024 7:04 PM CDT from Last 3 Months or Most Recently Relevant to Health Maintenance Results * (ABNORMAL) BASIC METABOLIC PANEL (CALCIUM TOTAL) (04/03/2024 10:21 PM CDT) BUN 31(H) 7 - 26 mg/dL 04/03/2024 11:02 PM CDT [facility] Creatinine 1.33(H) 0.56 - 0.96 mg/dL 04/03/2024 11:02 PM CDT [facility] Sodium 141 136 - 145 mmol/L 04/03/2024 11:02 PM CDT [facility] Potassium 4.5 3.5 - 4.5 mmol/L 04/03/2024 11:02 PM [facility] Chloride 103 98 - 107 mmol/L 04/03/2024 11:02 PM [facility] CO2 29 22 - 29 mmol/L 04/03/2024 11:02 PM [facility] Glucose 133(H) 70 - 115 mg/dL 04/03/2024 11:02 PM [facility] Calcium 9.5 8.4 - 10.2 mg/dL 04/03/2024 11:02 PM [facility] Anion Gap 9 6 - 16 04/03/2024 11:02 PM [facility] BUN/Creatinine Ratio 23 7 - 23 04/03/2024 11:02 PM [facility] Osmolality Calculated 300(H) 275 - 295 mOsm/kg 04/03/2024 11:02 PM [facility] eGFR by CKD-EPI 42(L) >=90 mL/min/1.7 3 m2 04/03/2024 11:02 PM [facility] Blood BLOOD SPECIMEN / Unknown Venipuncture / Unknown 04/03/2024 10:21 PM CDT 04/03/2024 10:33 PM [facility] Laureano Monk MD LAB - CHEMISTRY ORDERABLES Final Result [facility] [address] [place] [address], [facility] [phone] * (ABNORMAL) HEMOGLOBIN A1C (03/09/2024 7:04 PM [facility]) Hemoglobin A1c 6.5(H) <=5.6 % 03/10/2024 10:01 AM [facility] Estimated Average Glucose 140 mg/dL 03/10/2024 10:01 AM [facility] Comment: HbA1c Interpretation: Normal : < 5.7% Pre-diabetes: 5.7-6.4% Diabetes: Equal to or greater than 6.5% Test results diagnostic of diabetes should be repeated for confirmation. Treatment target values recommended by ADA and other clinical organizations should be used to evaluate metabolic control in patients. Reference: [place] Diabetes Association, Standards of Care in Diabetes [...] LAB - CHEMISTRY ORDERAB LES Final Result [facility] [address] [place] [address], [facility] [phone] from Last 3 Months or Most Recently Relevant to Health Maintenance Insurance AETNA MEDICARE ADV AETNA MEDICARE ADV Advance Directives Documents on File Type Date Recorded Patient Property Insurance Claims Examiner Expl anation Adv Directive/Living Will/POA 01/31/2025 9:59 [...]
--- OUTSIDE RECORDS SUMMARY | 2025-08-04 15:08 | XMS_ITS | Encounter Summary ---
Author Organization [facility] Healthcare Address [address] [place] [address] Care Team Providers Care Carpenter Repairer Name Role Phone Kayla Wayne MD Primary Care Provider [phone] Encounter Details Date Type Department Care Team (Late st Contact Info) Description 03/07/2025 Orders Only [facility] Health Information Management [address] [place] [address] Scanning, Provider Social History Tobacco Use Types Packs/Day Years Used Date Smoking Tobacco: Former Cigarettes Smokeless Tobacco: Never Comments Unknown Sex and Gender Information Value Date Recorded Sex Assigned at Not on file Legal Sex Female 3:28 PM SONOSCOPE OPERATOR Gender Identity Not on file Sexual [...] on filedocumented in this encounter Care Teams Carpenter Repairer Relationship Specialty Start Date End Date Kayla Wayne MD PCP - General Family Medicine 02/16/23 documented as of this encounter
--- OUTSIDE RECORDS SUMMARY | 2025-08-04 15:08 | XMS_ITS | Clinical Summary ---
Author Organization [facility] [address] Address [address] [place] [address] Care Team Providers Care House Director Name Role Phone Kayla Wayne MD Primary Care Provider [phone] Allergies Active Allergy Reactions Criticality Noted Date Comments Qullwwp-Yun-Vwh Reductase Inhibitors Other (See comments) 04/14/2024 Patient [...] (two) times a day 4 Active vit C,B-Vq-gqbua-leona tein-zeaxan (PreserVision AREDS-2) 250-90-40-1 mg capsule 1 capsule 2 TIMES DAILY (route: oral) 4 Active mirtazapine (REMERON) 7.5 mg tablet Take 1 tablet (7.5 mg total) by mouth nightly 4 Active terazosin (HYTRIN) 1 mg capsule Take 4 capsules (4 mg total) by mouth nightly Active venlafaxine XR (EFFEXOR-XR) 75 mg 24 hr capsule Take 1 capsule (75 mg total) by mouth daily 5 Active methIMAzole (TAPAZOLE) 5 mg tablet Take 2 tablets (10 mg total) by mouth daily 5 Active Active Problems Problem Noted Date Diagnosed Date Visit for wound check 03/14/2025 History of tobacco use 02/14/2025 Hyperlipidemia associated with type 2 diabetes m ellitus 02/14/2025 Hypertension associated with diabetes 02/14/2025 Stage 3 chronic kidney disease 02/14/2025 History of pulmonary embolism 02/14/2025 History of cardiac arrest 02/14/2025 History of stroke 02/14/2025 Encounters Date Type Department Care Team Description 07/05/2025 1:45 PM CDT Office Visit [facility] Cardiology [address] [place] [address] Mike Tang MD Hyperlipidemia associated with type 2 diabetes mellitus (HCC) (Primary Dx); Hypertension associated with diabetes (HCC); History of cardiac arrest; History of pulmonary embolism; History of stroke; History of tobacco use from Last 3 Months Surgical History Surgery Date Site/Laterality Comments CATARACT EXTRACTION 2014 Medical History Medical History Date Comments Cataract Hypertension 2004 Stroke (HCC) 03/09/24 Chronic kidney disease 2019 Diabetes mellitus 2009 Anxiety Family History Medical History Relation Name Comments Cancer Father Sunny Flores Hypertension Mother Anabelle Flores Relation Name Status Comments Father uSnny Flores Alive Mother Anabelle Flores Alive Social History Tobacco Use Types Packs/Day Years Used Date Smoking Tobacco: Former Cigarettes Smokeless Tobacco: Never Tobacco Cessation:Counseling Given: Not Answered Comments Unknown Sex and Gender Information Value Date Recorded Sex Assigned at Not on file Legal Sex Female 3:28 PM OXYACETYLENE TORCH OPERATOR Gender Identity Not on file Sexual Orientation Not on file Obstetrics History Last Filed Vital Signs Vital Sign Reading Time Taken Comments Blood Pressure 120/70 07/05/2025 2:29 PM CDT Pulse 72 07/05/2025 1:58 PM CDT Temperature - - Respiratory Rate - - Oxygen Saturation 98% 07/05/2025 1:58 PM CDT Inhaled Oxygen Concentration - - [...] B Screening 1968 Well Visit 65+ 2014 Hemoglobin A1C 09/09/2024 03/09/2024 Covid-19 Vaccine (6 - 2024-2 6 season) 2025 08/19/2022, 03/17/2022, 08/26/2021, Additional history exists Influenza Vaccine (#1) 2025 , 07/07/2021, 07/09/2020, Additional history exists Zoster Vaccine Completed 11/08/2018, 06/27/2018 Pneumococcal vaccine 65+ Completed 05/30/2020, 12/16 Insurance AETNA MEDICARE GOLD AETNA MEDICARE GOLD Care Teams House Director Relationship Specialty Start Date End Date Kayla Wayne MD PCP - General Family Medicine 02/16/23
--- OUTSIDE RECORDS SUMMARY | 2025-08-04 15:08 | XMS_ITS | Encounter Summary ---
Author Organization [facility] Healthcare Address [address] [place] [address] Care Team Providers Care Group Work Program Aide Name Role Phone Kayla Wayne MD Primary Care Provider [phone] Encounter Details Date Type Department Care Team (Late st Contact Info) Description 07/19/2024 Orders Only [facility] Health Information Management [address] [place] [phone] Scanning, Provider Social History Tobacco Use Types Packs/Day Years Used Date Smoking Tobacco: Never Assessed Comments Unknown Sex and Gender Information Value Date Recorded Sex Assigned at Not on file 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
--- NOTE | 2025-08-04 15:57 | ED_ITS ---
HPI - General Adult General Chief complaint: Shortness of Breath/Dyspnea Stated complaint: SOB Time Seen by Provider: 08/04/25 14:53 History of Present Illness HPI narrative: 75-year-old female presents to the emergency department for evaluation for worsening shortness of breath. Patient does not normally have an oxygen requirement. Family states over last 3-5 days she has had worsening shortness of breath. Patient did call EMS today. Patient does have prior history of pulmonary embolism, CVA and pleural effusions. Related Data Home Medications ?Medication ?Instructions ?Recorded ?Confirmed ?Last Taken ?Type aspirin 81 mg tablet,delayed 81 mg PO DAILY 05/11/24 0 04/04/25 03/06/25 History release Held on 03/07/25. Instructions: Resume on 03/14/25. vit C 250 mg-E 90 mg-zinc 40 1 tablet PO QAM AND QPM 0 07/17/24 04/04/25 03/06/25 History mg-copper 1 sq-quwyac-zndrgh chew tablet (PreserVision AREDS-2) nystatin 100,000 unit/gram topical 1 applic topical BI D 03/19/25 04/04/25 Unknown History cream Allergies Allergy/AdvReac Type Severity Reaction Status Date / Time Nfrltpn-UQU-NeO Reductase Allergy Unknown Weakness Verified 04/04/25 16:45 Inhibitor (Hruoekz-Ler-Ygl Reductase Inhibitor) Review of Systems 2 Review of Systems: All systems reviewed & are unremarkable except as noted in HPI and below PMFSH Past Medical History Medical History Diastolic dysfunction Hyperdynamic LV systolic function with an EF estimated at greater than 70% with grade 1 diastolic dysfunction on echo in 05/2024. Cerebrovascular accident Cardiac arrest (03/2024) Due to massive pulmonary embolism. Type 2 diabetes mellitus Pulmonary emboli (03/2024) Acute left ROSHAN ischemic stroke (02/2024) Resultant right hemiparesis. Chronic renal insufficiency, stage III (moderate) Essential hypertension Mixed hyperlipidemia Peripheral vascular disease Tobacco abuse Vitamin D deficiency Surgical History Surgical History History of thrombectomy (03/2024) Saddle pulmonary emboli leading to cardiac arrest. Family History Family History Mother Hypertension Father Cancer Other Diabetes mellitus Family history of kidney disease Social History Social History Social History: Surrogate medical decision maker: Ankit Wyatt, spouse. Code status: Full code. Smoking packs per day: 1 Smoking cigarettes per day: 20.0 Years smoked: 57 Smoking pack-years: 57.00 Smoking status: Former smoker Tobacco type: cigarettes Second hand tobacco smoke exposure: No Smoking end date: 06/18/24 Alcohol intake: never Substance use: never Substance use type: does not use Do You Feel Safe in your Home?: Yes Lack of Transportation: No Lack of Food: Never True Current Housing: I Have Housing Concerned About Future Housing: No Difficulty Paying Gas/Electric Bills: No Difficulty Paying for Meds: No Currently Unemployed: No Education: Associate Degree Difficulty w/ Childcare or Family Care: No Additional living arrangements comments: Lives with spouse in [place]. Spiritual care concerns: No Agree to blood products: Yes Exam 2 Narrative: APPEARANCE: Tired appearing HEAD: normocephalic, atraumatic. EYES: PERRLA/EOMI, conjunctivae clear. NOSE: Normal no drainage EARS:TMS clear with good light reflex. THROAT: Pharynx clear, no exudate. NECK: Supple. No adenopathy, no masses. RESPIRATORY: Airway patent, respirations nonlabored. Clear to auscultation bilaterally, no rales, rhonchi, wheezing. CARDIOVASCULAR: Regular rate and rhythm without murmurs rubs or gallops. ABDOMINAL: Soft, nontender, nondistended, normal bowel sounds MUSCULOSKELETAL: Moves all extremities. Strength/ROM intact, No edema, No calf tenderness. NEURO: Alert. Cranial nerves II through XII intact. Good gait. Good coordination SKIN: Warm, dry. Normal Color Course Vital Signs Vital signs: Vital Signs Temperature 98.4 F 08/04/25 14:35 Pulse Rate 85 08/04/25 14:35 Respiratory Rate 28 H 08/04/25 14:35 Blood Pressure 157/65 H 08/04/25 14:35 Pulse Oximetry 96 08/04/25 14:35 Oxygen Delivery Nasal Cannula 08/04/25 14:35 Oxygen Flow Rate 2 08/04/25 14:35 Temperature 98.4 F 08/04/25 14:35 Pulse Rate 81 08/04/25 17:46 Respiratory Rate 21 H 08/04/25 17:46 Blood Pressure 173/69 H 08/04/25 17:46 Pulse Oximetry 96 08/04/25 17:31 Oxygen Delivery Nasal Cannula 08/04/25 14:35 Oxygen Flow Rate 2 08/04/25 14:35 Medical Decision Making MDM Narrative Medical decision making narrative: 75-year-old female to the emergency department for evaluation for worsening shortness of breath. Patient is afebrile with no leukocytosis hemoglobin of 12.5. Patient does have a creatinine of 1.87 which is mildly better than her previous baseline creatinine of 2.2 this might represent some fluid overload. Patient's CRP is mildly elevated at 3.0. Patient's proBNP is elevated to 49. Chest x-ray does show evidence of a pleural effusion. CT of the chest does show concern for pneumonia and a large right-sided pleural effusion. Patient was started on IV antibiotics, blood cultures were ordered. Patient was discussed with hospitalist patient was accepted for admission. Patient and family are updated the results of the workup and plan for admission. All questions concerns were addressed. Differential Diagnosis Differential Diagnosis: Pneumonia, COVID, RSV, influenza a, bronchopneumonia Vital Signs Vital Signs: Vital Signs Temperature 98.4 F 08/04/25 14:35 Pulse Rate 85 08/04/25 14:35 Respiratory Rate 28 H 08/04/25 14:35 Blood Pressure 157/65 H 08/04/25 14:35 Pulse Oximetry 96 08/04/25 14:35 Oxygen Delivery Nasal Cannula 08/04/25 14:35 Oxygen Flow Rate 2 08/04/25 14:35 Temperature 98.4 F 08/04/25 14:35 Pulse Rate 81 08/04/25 17:46 Respiratory Rate 21 H 08/04/25 17:46 Blood Pressure 173/69 H 08/04/25 17:46 Pulse Oximetry 96 08/04/25 17:31 Oxygen Delivery Nasal Cannula 08/04/25 14:35 Oxygen Flow Rate 2 08/04/25 14:35 Lab Data Lab results reviewed: Yes I reviewed the patient's lab results. 08/04/25 14:45 08/04/25 16:51 Labs: Lab Results 08/04/25 08/04/25 Range/Units 14:45 16:51 WBC 8.7 (4.5-10.0) K/mm3 RBC 4.27 (4.2-5.4) M/mm3 Hgb 12.5 (12.0-15.0) g/dL Hct 39.2 (37.0-47.0) % MCV 91.8 (80-100) fl MCH 29.3 (26-34) pg MCHC 31.9 L (32-36) g/dl RDW 13.4 (11.5-14.5) % Plt Count 255 (150-375) k/mm3 MPV 9.7 (7.4-10.4) fl Immature Gran % (Auto) 0.3 (0-0.5) % Neut % (Auto) 76.3 H (45.5-73.1) % Lymph % (Auto) 12.2 L (18.3-44.2) % [place] % (Auto) 7.5 (2.6-8.5) % Eos % (Auto) 3.1 (0-4.4) % Baso % (Auto) 0.6 (0.2-1.2) % Lymph # (Auto) 1.06 (0.9-3.2) K/mm3 [place] # (Auto) 0.7 H (0.1-0.6) K/mm3 Eos # (Auto) 0.3 (0-0.3) K/mm3 Baso # (Auto) 0.1 (0.0-0.1) K/mm3 Abs Immat Gran (auto) 0.03 (0.00-0.031) K/mm3 Absolute Neuts (auto) 6.6 (1.3-6.7) K/mm3 Absolute Nucleated RBC 0.000 (0.0-0.012) K/mm3 Nucleated RBC % 0.0 (0.0-0.2) % Sodium 136 L 136 L (137-145) mmol/L Potassium 3.9 4.1 (3.4-5.0) mmol/L Chloride 99 101 (98-107) mmol/L Carbon Dioxide 30 29 (22-30) mmol/L Anion Gap 7 6 (4-12) mmol/L BUN 26 H D 27 H (7-17) mg/dL Creatinine 1.88 H 1.87 H (0.7-1.0) mg/dL Estim Creat Clear Calc 25 25 ml/min Estimated GFR 26 L 26 L (59 - ) Glucose 241 H 176 H (65-110) mg/dL Calcium 8.7 8.9 (8.4-10.2) mg/dL Total Bilirubin 0.1 L (0.2-1.3) mg/dL AST 26 (14-36) U/L ALT 16 (6-35) U/L Alkaline Phosphatase 94 (38-126) U/L C-Reactive Protein 3.0 H (<1.0) mg/dL NT-Pro-B Natriuret Pep 489 H (19.9-100) pg/mL Total Protein 7.3 (6.3-8.2) g/dL Albumin 3.6 (3.5-5.1) g/dL Imaging Data Radiologist's impression: Impressions Chest X-Ray 08/04/25 15:46 Impression: CHF. Superimposed right lower lobe pneumonia Chest CT 08/04/25 16:15 IMPRESSION: Large focus of right-sided bronchopneumonia. Bronchoscopy may be of benefit to further evaluate. Discharge Plan Discharge Clinical Impression: Pneumonia, Pleural effusion Patient Disposition: Still a Patient Condition: Serious
[2025-08-04 16:23] LABS: CRP 3.0 mg/dL (<1.0)
[2025-08-04 16:28] LABS: NT Pro B Type Natriuretic Pept 489 pg/mL (19.9-100)
--- NOTE | 2025-08-04 16:29 | P.HP_ITS ---
H&P: HPI History of Present Illness Date/Time: 08/04/25 16:29 Chief Complaint: shortness of breath Narrative: 75-year-old female past medical history of diastolic dysfunction, CVA with right-sided deficits, [place] secondary to massive pulmonary embolism, diabetes, CKD stage 3, hypertension hyperlipidemia presents the hospital with shortness of breath. Patient is bedbound/wheelchair-bound from her stroke. is at bedside and gives details about patient's history. He states that she short of breath with talking and that when he checked her vitals her pulse ox was only 91% when it is normally above 95 so he brought her into the hospital. Patient also complains of right calf pain she states this is new. Patient denies nausea vomiting or fever. states that the patient took her Eliquis this morning. Lab work in the ED shows sodium 136, creatinine of 1.88 which is below baseline, GFR 26, glucose of 241, CRP of 3.0, proBNP of 489. CT chest shows Large focus of right-sided bronchopneumonia. Bronchoscopy may be of benefit to further evaluate. However in my personal opinion there is a large right pleural effusion that could use a thoracentesis. Review of Systems Review of Systems: 12 systems were reviewed and are negativ e except for as per HPI. [facility] Past Medical History Medical History Diastolic dysfunction Hyperdynamic LV systolic function with an EF estimated at greater than 70% with grade 1 diastolic dysfunction on echo in 05/2024. Cerebrovascular accident Cardiac arrest (03/2024) Due to massive pulmonary embolism. Type 2 diabetes mellitus Pulmonary emboli (03/2024) Acute left ROSHAN ischemic stroke (02/2024) Resultant right hemiparesis. Chronic renal insufficiency, stage III (moderate) Essential hypertension Mixed hyperlipidemia Peripheral vascular disease Tobacco abuse Vitamin D deficiency Surgical History Surgical History History of thrombectomy (03/2024) Saddle pulmonary emboli leading to cardiac arrest. Family History Family History Mother Hypertension Father Cancer Other Diabetes mellitus Family history of kidney disease Social History Social History Social History: Surrogate medical decision maker: Ankit Wyatt, spouse. Code status: Full code. Smoking packs per day: 1 Smoking cigarettes per day: 20.0 Years smoked: 57 Smoking pack-years: 57.00 Smoking status: Former smoker Tobacco type: cigarettes Second hand tobacco smoke exposure: No Smoking end date: 06/18/24 Alcohol intake: never Substance use: never Substance use type: does not use Do You Feel Safe in your Home?: Yes Lack of Transportation: No Lack of Food: Never True Current Housing: I Have Housing Concerned About Future Housing: No Difficulty Paying Gas/Electric Bills: No Difficulty Paying for Meds: No Currently Unemployed: No Education: Associate Degree Difficulty w/ Childcare or Family Care: No Additional living arrangements comments: Lives with spouse in [place]. Spiritual care concerns: No Agree to blood products: Yes Meds Home Medications and Allergies Home Medications ?Medication ?Instructions ?Recorded ?Confirmed ?Type aspirin 81 mg tablet,delayed 81 mg PO DAILY 05/11/24 1 History release Held on 03/07/25. Instructions: Resume on 03/14/25. vit C 250 mg-E 90 mg-zinc 40 1 tablet PO QAM AND QPM 0 07/17/24 08/04/25 History mg-copper 1 xs-ezfzdx-loigia chew tablet (PreserVision AREDS-2) mirtazapine 15 mg tablet (Remeron) 7.5 mg (1/2 x 15 mg ) PO HS #45 tabs 10/15/24 08/04/25 Rx amlodipine 10 mg tablet 10 mg PO DAILY #90 tabs 11/1808/04/25 Rx apixaban 5 mg tablet (Eliquis) 5 mg PO BID #60 tabs 08/04/25 Rx Held on 03/07/25. Instructions: Resume on 03/14/25. methimazole 5 mg tablet 10 mg (2 x 5 mg) PO DAILY 3 months 06/07/25 08/04/25 Rx #180 tabs terazosin 1 mg capsule 4 mg PO HS 08/04/25 08/04/25 History venlafaxine 75 mg tablet 75 mg PO DAILY 08/04/2507/18 History Allergies Allergy/AdvReac Type Severity Reaction Status Date / Time Rnellok-ODD-DsN Reductase Allergy Unknown Weakness Verified 04/04/25 16:45 Inhibitor (Cuntlhw-Fnx-Fbx Reductase Inhibitor) Vital Signs Vital Signs - 24 hr 08/04/25 14:35 Temperature 98.4 F Pulse Rate 85 Respiratory Rate 28 H Blood Pressure 157/65 H Pulse Oximetry 96 Oxygen Delivery Nasal Cannula Oxygen Flow Rate 2 Exam Narrative: General: well appearing, appears stated age. HEENT: normocephalic, atraumatic. Mucous membranes moist. EOMI, PERRLA, bilateral sclera anicteric, no conjunctival injection. Neck supple without JVD, lymphadenopathy, or bruit. Respiratory: Unable to talk in full sentences due to shortness of breath, expiratory wheezes Cardiovascular: Regular rate and rhythm, normal S1-S2 upon ascultation. No murmurs, rubs, or clicks. PMI is nondisplaced, capillary refill less than 3 second. Abdomen: Soft, round, no pulsatile masses, nondistended and nontender. No rebound, no guarding. No CVA tenderness, no hepatosplenomegaly. Bowel sounds present to all four quadrants. No high pitch or tinkling sounds, resonant to percussion. Extremities: No cyanosis, clubbing, or edema present. Pulses are palpable 2/2. Right upper extremity weak, left strong, right lower extremity flaccid, left strong Neuro: Alert and orientated x 4. PERRLA. Cranial nerves 2-12 intact without focal deficit. Skin: Warm, dry, and intact, without rash, erythema, or lesion. Psych: pleasant, cooperative, normal speech, normal affect, no hallucinations, no dysarthia 3 L nasal cannula H&P: Results Labs Labs: Short CBC 08/04/25 Range/Units 14:45 WBC 8.7 (4.5-10.0) K/mm3 Hgb 12.5 (12.0-15.0) g/dL Hct 39.2 (37.0-47.0) % Plt Count 255 (150-375) k/mm3 BMP 08/04/25 14:45 Sodium 136 L Potassium 3.9 Chloride 99 Carbon Dioxide 30 BUN 26 H D Creatinine 1.88 H Glucose 241 H Calcium 8.7 Liver Function 08/04/25 Range/Units 14:45 Total Bilirubin 0.1 L (0.2-1.3) mg/dL AST 26 (14-36) U/L ALT 16 (6-35) U/L Alkaline Phosphatase 94 (38-126) U/L Albumin 3.6 (3.5-5.1) g/dL Assessment and Plan Assessment and plan (1) Pleural effusion on right: Code(s): J90 - Pleural effusion, not elsewhere classified Status: Acute Assessment and Plan: Patient would benefit from a thoracentesis, unable to do this until Wednesday, will diurese over weekend Hold Eliquis Weight based Lovenox (2) Acute CHF: Code(s): I50.9 - Heart failure, unspecified Status: Acute Assessment and Plan: Cardiology consulted Aggressive diuresis IV Lasix b.i.d. Daily weights Fluid restriction (3) Pneumonia: Code(s): J18.9 - Pneumonia, unspecified organism Status: Acute Assessment and Plan: Rocephin azithromycin Guaifenesin Patient possibly may need bronch CPT (4) Acute respiratory failure with hypoxia: Code(s): J96.01 - Acute respiratory failure with hypoxia Status: Acute Assessment and Plan: Likely secondary to pneumonia and large pleural effusion Wean oxygen as able Treat underlying infection Patient's last dose of Eliquis was 08/04/2025 Planned thoracentesis for Hali (5) Type 2 diabetes mellitus: Code(s): E11.9 - Type 2 diabetes mellitus without complications Status: Acute Assessment and Plan: Felicita Cooper and SSI will bring in her food from home (6) Chronic renal insufficiency, stage III (moderate): Code(s): N18.3 - Chronic kidney disease, stage 3 (moderate) Status: Acute Assessment and Plan: Will monitor kidney function while diuresing (7) Constipation: Code(s): K59.00 - Constipation, unspecified Status: Acute Assessment and Plan: Per patient has very hard stools about every 4 days Senna MiraLax (8) Appetite disorder: Code(s): F50.9 - Eating disorder, unspecified Status: Acute Assessment and Plan: will bring in food for the patient Regular diet (9) Calf pain: Code(s): M79.669 - Pain in unspecified lower leg Status: Acute Assessment and Plan: Venous Doppler pending Robaxin Tylenol Quality VTE Prophylaxis VTE prophylaxis: mechanical ordered and pharmacologic ordered Hospitalist MIPS Advance Care Plan I have confirmed that the patient's Advanced Care Plan is present, code status is documented, or surrogate decision maker is listed in patient medical record.: Yes Medication Reconciliation I have utilized all available resources to obtain, update and review the patients current medications (includes all prescriptions, OTC, herbals, cannabis, and nutritional supplements).: Yes
[2025-08-04 17:06] LABS: Anion Gap 6 mmol/L (4-12); Blood Urea Nitrogen 27 mg/dL (7-17); Calcium 8.9 mg/dL (8.4-10.2); Carbon Dioxide 29 mmol/L (22-30); Chloride 101 mmol/L (98-107); Estimated CRCL calculation 25 ml/min; Estimated Glomerular Filt Rate 26; Glucose 176 mg/dL (65-110); Potassium 4.1 mmol/L (3.4-5.0); Sodium 136 mmol/L (137-145)
[2025-08-04] MEDS: cefTRIAXone 1 GM in SODIUM CHLORIDE 0.9% IV 50 ML 100 ML IVPB (18:35)
[2025-08-04] MEDS: FUROSEMIDE INJ 40 MG/4 ML VIAL IV PUSH (18:35)
[2025-08-04] MEDS: guaiFENesin 12 HR 600 MG TABCR 1200 MG PO (22:05)
[2025-08-04] MEDS: SENNA/DOCUSATE SODIUM TABLET 1 TAB PO (22:05)
[2025-08-04] MEDS: ACETAMINOPHEN ELIXIR 325 MG/10.15 ML UDC 650 MG PO (23:41)
[2025-08-05] VITALS (13 sets, daily range): BP systolic 143–171; BP diastolic 60–82; PULSE 71–99; RESP 14–22; TEMP 36.4–37.2; O2SAT 93–98
[2025-08-05 04:18] LABS: Hematocrit 39.8 % (37.0-47.0); Hemoglobin 12.6 g/dL (12.0-15.0); Immature Granulocyte Percent A 0.3 % (0-0.5); Lymphocytes Absolute Auto 1.48 K/mm3 (0.9-3.2); Mean Corpuscular HGB Conc 31.7 g/dl (32-36); Mean Corpuscular Hemoglobin 29.4 pg (26-34); Mean Corpuscular Volume 92.8 fl (80-100); Nucleated Red Blood Cells Absolute Auto 0.000 K/mm3 (0.0-0.012); Nucleated Red Blood Cells Perc 0.0 % (0.0-0.2); Platelet Count Result 259 k/mm3 (150-375); Red Blood Count 4.29 M/mm3 (4.2-5.4); White Blood Count 9.2 K/mm3 (4.5-10.0)
[2025-08-05 04:35] LABS: Hemoglobin A1C 6.7 % (<5.7)
--- NOTE | 2025-08-05 08:06 | PM.CNCAR ---
Assessment and Plan Assessment and plan (1) Pneumonia: Code(s): J18.9 - Pneumonia, unspecified organism Status: Acute Assessment and Plan: 75-year-old female with hypertension, CHF with preserved ejection fraction, history of PE as per patient when she was hospitalized for CVA at [facility] in February 2024 (on anticoagulation with apixaban at home), CKD, history of CVA with right-sided weakness; right pleural effusion status post ultrasound-guided thoracentesis on 07/19/2024, immobilized status. Patient admitted to the hospital with worsening dyspnea. CT chest reportedly showed Large focus of right-sided bronchopneumonia and right pleural effusion. Patient's clinical presentation primarily due to underlying lung disease. No acute changes on EKG. NTpro BNP mildly elevated. -appropriate antibiotics as per primary team. -would likely benefit from right thoracentesis. Anticoagulation with apixaban on hold, currently on LMWH. -recommend pulmonary evaluation -currently on diuresis with furosemide IV. Monitor electrolytes and renal function closely. Avoid aggressive diuresis. May switch to p.o. in 1-2 days. -repeat echo with Doppler has been ordered by primary team. Optimization of treatment for CHF with preserved ejection fraction can be done as an outpatient when patient's clinical stability. Medications may include SGLT2 inhibitor, ARNI. Will have to be cautious with MRA due to renal insufficiency. (2) Pleural effusion: Code(s): J90 - Pleural effusion, not elsewhere classified Status: Acute Assessment and Plan: Would benefit from thoracentesis. Anticoagulation with apixaban on hold, currently on low-molecular weight heparin (3) Diastolic CHF: Code(s): I50.30 - Unspecified diastolic (congestive) heart failure Status: Acute Assessment and Plan: Management options described above. Avoid aggressive diuresis. History of Present Illness History of Present Illness Consult date/time: 08/05/25 08:06 Requesting physician: Disha Herr APRN Consult reason: Other (Medication optimization for CHF) Reason For Visit: Pneumonia, Hypoxia, Pleural Effusion Narrative: DATE OF CONSULT: 08/05/2025 REASON FOR CONSULT: CHF REQUESTING PHYSICIAN: Carmenza CHIEF COMPLAINT: Worsening shortness of breath HPI: 75-year-old female with hypertension, CHF with preserved ejection fraction, ?history of PE as per patient when she was hospitalized for CVA at [facility] in February 2024 (on anticoagulation with apixaban at home), CKD, history of CVA with right-sided weakness; right pleural effusion status post ultrasound-guided thoracentesis on 07/19/2024, immobilized status. Patient presented to [facility] on 08/04/2025 with worsening dyspnea for last 3-5 days. Patient is immobile status after CVA. Her helps her with ADLs. She states that she she got short of breath for last few days associated with cough and yellowish expectoration. No chest pain. No fever or chills. EKG at presentation on my personal evaluation showed sinus rhythm, baseline artifact. Chest x-ray showed pulmonary vascular congestion, Superimposed right lower lobe pneumonia. CT chest reportedly showed Large focus of right-sided bronchopneumonia. NT proBNP elevated at 498. Previous echocardiogram from 07/19/2024 reportedly showed normal LV systolic function, diastolic dysfunction; moderate left atrial enlargement, mitral annular calcification, aortic valve sclerosis. Review of Systems Review of Systems: General: Positive for fatigue Psychological: Positive for anxiety Ophthalmic: negative for loss of vision ENT: Negative for epistaxis, headaches Allergy and immunology: Negative for hives, nasal congestion Hematologic and lymphatic: Negative for overt bleeding problems Endocrine: Negative for hot flashes, palpitations Respiratory: Positive for cough with yellowish expectoration; no hemoptysis Cardiovascular: Negative for chest pain, positive for worsening dyspnea Gastrointestinal: Negative for abdominal pain; positive for constipation Musculoskeletal: Negative for myalgia, joint pains Neurological: Positive for right-sided weakness after stroke Dermatological: Negative for rash, skin discoloration PMFSH Past Medical History Medical History Diastolic dysfunction Hyperdynamic LV systolic function with an EF estimated at greater than 70% with grade 1 diastolic dysfunction on echo in 05/2024. Cerebrovascular accident Cardiac arrest (03/2024) Due to massive pulmonary embolism. Type 2 diabetes mellitus Pulmonary emboli (03/2024) Acute left ROSHAN ischemic stroke (02/2024) Resultant right hemiparesis. Chronic renal insufficiency, stage III (moderate) Essential hypertension Mixed hyperlipidemia Peripheral vascular disease Tobacco abuse Vitamin D deficiency Surgical History Surgical History History of thrombectomy (03/2024) Saddle pulmonary emboli leading to cardiac arrest. Family History Family History Mother Hypertension Father Cancer Other Diabetes mellitus Family history of kidney disease Social History Social History Social History: Surrogate medical decision maker: Ankit Wyatt, spouse. Code status: Full code. Smoking packs per day: 1 Smoking cigarettes per day: 20.0 Years smoked: 57 Smoking pack-years: 57.00 Smoking status: Never smoker Second hand tobacco smoke exposure: No Alcohol intake: never Substance use: never Substance use type: does not use Do You Feel Safe in your Home?: Yes Lack of Transportation: No Lack of Food: Never True Current Housing: I Have Housing Concerned About Future Housing: No Difficulty Paying Gas/Electric Bills: No Difficulty Paying for Meds: No Currently Unemployed: No Education: Associate Degree Difficulty w/ Childcare or Family Care: No Additional living arrangements comments: Lives with spouse in [place]. Spiritual care concerns: No Agree to blood products: Yes Meds Home Medications and Allergies Home Medications ?Medication ?Instructions ?Recorded ?Confirmed ?Type aspirin 81 mg tablet,delayed 81 mg PO DAILY 05/11/24 08/04/25 History release Held on 03/07/25. Instructions: Resume on 03/14/25. vit C 250 mg-E 90 mg-zinc 40 1 tablet PO QAM AND QPM 07/17/24 08/04/25 History mg-copper 1 [id number]-myhmch chew tablet (PreserVision AREDS-2) mirtazapine 15 mg tablet (Remeron) 7.5 mg (1/2 x 15 mg) PO HS #45 tabs 10/15/24 08/04/25 Rx amlodipine 10 mg tablet 10 mg PO DAILY #90 tabs 12/01/24 08/04/25 Rx apixaban 5 mg tablet (Eliquis) 5 mg PO BID #60 tabs 02/27/25 08/04/25 Rx Held on 03/07/25. Instructions: Resume on 03/14/25. methimazole 5 mg tablet 10 mg (2 x 5 mg) PO DAILY 3 months 06/07/25 08/04/25 Rx #180 tabs terazosin 1 mg capsule 4 mg PO HS 08/04/25 08/04/25 History venlafaxine 75 mg tablet 75 mg PO DAILY 08/04/25 08/04/25 History Allergies Allergy/AdvReac Type Severity Reaction Status Date / Time [id number]-[id number] Reductase Allergy Unknown Weakness Verified 08/04/25 23:18 Inhibitor (Pkfqdnq-Sja-Qva Reductase Inhibitor) Vital Signs Vital Signs - 24 hr 08/04/25 14:35 08/04/25 14:43 08/04/25 14:46 Temperature 36.9 C Pulse Rate 85 81 81 Respiratory Rate 28 H 22 H 28 H Blood Pressure 157/65 H 157/65 H 146/68 H Pulse Oximetry 96 96 97 Oxygen Delivery Nasal Cannula Oxygen Flow Rate 2 08/04/25 15:01 08/04/25 15:15 08/04/25 15:16 Temperature Pulse Rate 84 88 78 Respiratory Rate 26 H 25 H 28 H Blood Pressure 154/66 H 150/68 H Pulse Oximetry 95 97 95 Oxygen Delivery Oxygen Flow Rate 08/04/25 16:15 08/04/25 16:37 08/04/25 16:39 Temperature Pulse Rate 74 78 79 Respiratory Rate 24 H 28 H 20 Blood Pressure 160/66 H Pulse Oximetry 97 97 97 Oxygen Delivery Oxygen Flow Rate 08/04/25 16:45 08/04/25 16:46 08/04/25 17:00 Temperature Pulse Rate 75 75 74 Respiratory Rate 22 H 23 H 19 Blood Pressure 165/69 H Pulse Oximetry 98 96 98 Oxygen Delivery Oxygen Flow Rate 08/04/25 17:01 08/04/25 17:15 08/04/25 17:16 Temperature Pulse Rate 77 76 74 Respiratory Rate 19 28 H 26 H Blood Pressure 171/66 H 168/70 H Pulse Oximetry 96 98 96 Oxygen Delivery Oxygen Flow Rate 08/04/25 17:30 08/04/25 17:31 08/04/25 17:46 Temperature Pulse Rate 80 82 81 Respiratory Rate 31 H 25 H 21 H Blood Pressure 166/97 H 173/69 H Pulse Oximetry 97 96 Oxygen Delivery Oxygen Flow Rate 08/04/25 19:56 08/04/25 20:00 08/04/25 20:00 Temperature 36.8 C Pulse Rate 81 72 72 Respiratory Rate 20 20 Blood Pressure 129/54 L Pulse Oximetry 92 92 Oxygen Delivery Room Air Oxygen Flow Rate 08/04/25 20:00 08/04/25 22:00 08/05/25 00:00 Temperature 36.6 C 36.8 C Pulse Rate 72 72 78 Respiratory Rate 18 Blood Pressure 143/74 H Pulse Oximetry 93 Oxygen Delivery Oxygen Flow Rate 08/05/25 00:00 08/05/25 00:00 08/05/25 03:00 Temperature Pulse Rate 78 78 78 Respiratory Rate 18 Blood Pressure Pulse Oximetry 93 Oxygen Delivery Room Air Oxygen Flow Rate 08/05/25 03:05 08/05/25 03:05 08/05/25 04:00 Temperature 36.6 C Pulse Rate 78 78 73 Respiratory Rate 18 18 Blood Pressure 144/82 H Pulse Oximetry 93 97 Oxygen Delivery Room Air Oxygen Flow Rate 08/05/25 07:58 Temperature 36.4 C Pulse Rate 80 Respiratory Rate 16 Blood Pressure 160/71 H Pulse Oximetry 98 Oxygen Delivery Oxygen Flow Rate Exam Narrative: PHYSICAL EXAMINATION: GENERAL: Alert, oriented, no acute distress; obese MENTAL STATUS: affect appropriate to mood EYES: Extraocular movements intact, no pallor EARS: External ears appear normal, hearing grossly normal NOSE: Normal and patent, no discharge MOUTH: Mucous membranes moist, tongue normal NECK: Supple, no JVD CHEST: Decreased effort, absent breath sounds right base HEART: Normal rate, regular rhythm, normal S1 and S2, soft systolic murmur LSB and base ABDOMEN: Soft, nontender NEUROLOGICAL: Alert, normal speech, right-sided weakness MUSCULOSKELETAL: No major deformity, no amputation EXTREMITIES: Trace pedal edema, no clubbing, no cyanosis SKIN: no rash on the exposed area, no cyanosis PSYCHIATRIC: Normal mood, appropriate affect Results Labs and Meds 08/05/25 03:40 08/04/25 16:51 Lab results: Cardiac Enzymes 08/04/25 Range/Units 14:45 AST 26 (14-36) U/L CBC 08/04/25 08/05/25 Range/Units 14:45 03:40 WBC 8.7 9.2 (4.5-10.0) K/mm3 RBC 4.27 4.29 (4.2-5.4) M/mm3 Hgb 12.5 12.6 (12.0-15.0) g/dL Hct 39.2 39.8 (37.0-47.0) % Plt Count 255 259 (150-375) k/mm3 Lymph # (Auto) 1.06 1.48 (0.9-3.2) K/mm3 [place] # (Auto) 0.7 H 0.8 H (0.1-0.6) K/mm3 Eos # (Auto) 0.3 0.4 H (0-0.3) K/mm3 Baso # (Auto) 0.1 0.0 (0.0-0.1) K/mm3 Comprehensive Metabolic Panel 08/04/25 08/04/25 Range/Units 14:45 16:51 Sodium 136 L 136 L (137-145) mmol/L Potassium 3.9 4.1 (3.4-5.0) mmol/L Chloride 99 101 (98-107) mmol/L Carbon Dioxide 30 29 (22-30) mmol/L BUN 26 H D 27 H (7-17) mg/dL Creatinine 1.88 H 1.87 H (0.7-1.0) mg/dL Glucose 241 H 176 H (65-110) mg/dL Calcium 8.7 8.9 (8.4-10.2) mg/dL AST 26 (14-36) U/L ALT 16 (6-35) U/L Alkaline Phosphatase 94 (38-126) U/L Total Protein 7.3 (6.3-8.2) g/dL Albumin 3.6 (3.5-5.1) g/dL Intake and Output 08/04/25 08/05/25 08/05/25 23:59 07:59 15:59 Intake Total 50 200 Balance 50 200 Intake: IV 50 cefTRIAXone 1 gm In Sodium 50 Chloride 0.9% IV 50 ml @ 100 mls/hr IVPB ONCE STA Rx#: [id number] Oral 200 Other: # Unmeasured Voids 2 Patient Weight 08/05/25 23:59 Weight 91.5 kg
[2025-08-05] MEDS: OPTI-GEN TAB 1 TABLET PO ×2 (09:39→16:37)
[2025-08-05] MEDS: FUROSEMIDE INJ 40 MG/4 ML VIAL IV PUSH ×2 (09:40→16:38)
[2025-08-05] MEDS: guaiFENesin 12 HR 600 MG TABCR 1200 MG PO ×2 (09:40→21:19)
[2025-08-05] MEDS: VENLAFAXINE HCL 75 MG TABLET PO (09:41)
--- NOTE | 2025-08-05 11:53 | PM.CNPUL ---
Assessment and Plan Assessment and plan (1) Acute respiratory failure with hypoxia: Code(s): J96.01 - Acute respiratory failure with hypoxia Status: Acute Assessment and Plan: She does not use O2 at home; this admission, she required O2 at 3 L/minute to manage her acute hypoxia associated with the huge right pleural effusion. She did not describe any symptoms to suggest a pulmonary infection however she told Dr Pompa that she had yellow sputum. She has not had a fever, sore throat, discolored sputum, she does have a cough and shortness of breath over the last week but this would be expected with a large recurrent right pleural effusion. She has had the same presentation in the past a year ago when a large right effusion was tapped, the last time was July 19, 2024 a year ago, pH greater than 7.5, lymphocytic predominant and high number of RBCs. Sometimes it is difficult to tell the difference between cardiac and Pulmonary causes of shortness of breath. She may have an overlap of cardiac and pulmonary processes occurring. Her CRP is elevated 3.0, suggesting an infectious process. (2) Pleural effusion on right: Code(s): J90 - Pleural effusion, not elsewhere classified Status: Acute Assessment and Plan: Large right pleural effusion in the setting of possible cardiac dysfunction, has preserved EF 65-70% on an echo from Jun 2024. She has an elevated proBNP, 489, had similar episode a year ago. (3) Obesity: Code(s): E66.9 - Obesity, unspecified Status: Acute Assessment and Plan: BMI is 36.9. says that she has gained 30 lb in the last few months. May have obesity hypoventilation. ABG will be helpful. Plan plan: 1) I spoke with her about getting evaluated for NICOLASA as an outpatient, and she was not excited about using PAP as she had to use it urgently last year when she was admitted in Jun 2024, similar presentation, ABG showed pH 7.418, pCO2 48, PO2 73.3, HC03 30.4, saturation 94.8% on BiPAP / and 30%. Acute illness requiring BiPAP is less comfortable than a proper setting and well-fit mask. Elmer says that she would like a nasal mask more than a full face mask. I will repeat an arterial blood gas tomorrow morning for evaluation of hypercapnia on her current O2. 2) Thoracentesis right side; when her apixaban wears off. She has a large right pleural effusion, and this needs to be tapped before further evaluation of lung process can occur. Her last dose of apixaban was yesterday morning, Ot 18; this can be held for couple of days before she gets her thoracentesis. She has had the procedure last year and she understands with this entails. On this thoracentesis I will send cytology. Her pleural fluid last year was consistent with chronic effusion. Lymphocyte predominant 72% and high rbc, 28,000 and wbc 1530 mildly elevated, pH >7.5, not infected in 2023. procalcitonin tomorrow morning; elevated values will support diagnosis of bacterial infection. extended respiratory pathogen panel. 3) She may want to increase her physical activity to maximize her ability to stay at home with Elmer as her companion caregiver. When he is no longer able to do everything, she will need full NH care. She is not able to live in Assisted Living. Cannot walk, dress, bathroom. 4) Home O2 study before discharge however she is immmobile. Will see how she progresses during this admission. History of Present Illness History of Present Illness Consult date: 08/05/25 Requesting physician: Nicky Dupree MD Chief complaint: Pneumonia, Hypoxia, Pleural Effusion Narrative: Pt was seen Aug 05, 2025 at 12:00 noon, room 206-2. Her Elmer was present, and assisted with the history. NEW: Obdulia Wyatt is a 75-year old woman who has an abnormal CT scan with a large right pleural effusion and compressive atelectasis. She was admitted yesterday Aug 04 about 1 pm, due to shortness of breath and decrease n saturation to 91% on room air, normally 98% on room air. Her saturation picks up better on her left hand. She had an ABG a year ago, had mild CO2 retention, pCO2 48. Her wbc on admission was 8.7 without a left shift, hemoglobin 12.5, hematocrit 39.2, platelets [id number]. Sodium 136, potassium 4.1, chloride 101, carbon dioxide 29, BUN 27, creatinine 1.87. Her CRP was elevated at 3.0, normal is less than 1.0. ProBNP elevated 489, normal is less than 100. She had a thoracentesis on July 19, 2024, a year ago, had lymphocyte predominant effusion with excessive red blood cells, the pH was greater than 7.50. No cytology was sent. She was admitted 08/04/25 from home with a 1 week history of shortness of breath, with a chest CT Showing a large right pleural effusion with compressive atelectasis. She has a small right upper and right lower lobe infiltrate. Radiologist suggesting bronchoscopy however there is significant pleural effusion compressing the lung tissue so bronchoscopy would be of limited value. She took her last Eliquis Aug 04. She has not had a sore throat, sputum production, fever, ear ache, has not been exposed to any sick contacts. She and her stay at home other than going to doctor visits. She was recently at a soccer game for her grandchild outside, not a risky situation as far as communicable diseases. She had a stroke February 2024, is hemiplegic on the right, and lost strength on the left foot over the last several months through being sedentary. She can no longer pivot weight. is not able to lift her as he once was, and on one occasion had to call his daughter to help move her from bed to chair or the other direction. She is depressed, had anti-depressants adjusted recently. Depression is getting better, she likes sweets, does not eat much in general. Elmer says that other than being hemiplegic, her mind is sharp, and she has no cognitive deficit. 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 They have 2 adult children. Sleep: She and her sleep in different rooms. She sleeps in a hospital bed with head elevated at least 45 *in family room, he is in a bedroom. She does not snore, although she wakes often at night. She had venlafaxine was adjusted, and she is sleeping better. Her normal bedtime is 10:00 p.m., she wakes around 6:00 a.m.. She does not have dreams at night. She does not feel particularly refreshed on waking. She urinates during the night. She wears adult diapers, this has been since her stroke. She has not been tested for sleep apnea. PMH: hypertension, CHF with preserved ejection fraction > 70%, February 2024 admitted at [facility], stroke with right hemiplegia but no other deficits although she did require feeding tube for 6 months, 2 cardiac arrests due to saddle embolus, treated with thrombectomy and released on chronic anticoagulation with apixaban at home, CKD. DATA * 08/04/2025; chest CT; FINDINGS: No significant coronary calcification is present ([id number]) LUNGS: Large simple appearing right pleural effusion. No tracheomalacia. No bronchiectasis. Minimal emphysematous changes. Minimal pulmonary fibrotic changes. Small right upper and right lower lobe infiltrates. HEART AND PERICARDIUM: Mild cardiomegaly. Small simple appearing pericardial effusion. AORTA: Normal caliber aorta. ADENOPATHY/MEDIASTINUM: None. LIMITED VIEWS OF THE ABDOMEN: Cholelithiasis. Left kidney midpole simple appearing renal cyst 2 x 2 cm. OSSEOUS STRUCTURES: No sclerotic or lytic lesions. No acute rib fractures. Moderate loss of vertebral height and disc height throughout the visualized spine with kyphosis noted. OVERLYING SOFT TISSUES: Unremarkable. THYROID: Nonspecific heterogeneity of the thyroid lobes bilaterally with subcentimeter nodules suspected. IMPRESSION: Large focus of right-sided bronchopneumonia. Bronchoscopy may be of benefit to further evaluate. * ; LE Dopplers ; IMPRESSION: 1. No deep venous thrombosis. * Aug 04, 2025 white blood cell count 8.7, hemoglobin 12.5, hematocrit 39.2%, platelets 255 K, all normal values. Sodium 136, potassium 4.1, chloride 101, carbon dioxide 29, BUN 27, creatinine 1.87. Her CRP was elevated at 3.0, normal is less than 1.0. ProBNP elevated 489, normal is less than 100. * 07/17/2024 echo ; Complete two-dimensional, color flow and Doppler transthoracic echocardiogram is performed. 2. Left ventricular chamber dimension is normal. 3. Left ventricular systolic function is normal, estimated at 65-70%. 4. The left ventricular diastolic function is abnormal. 5. E/e' 23 is elevated. 6. Left atrial chamber dimension is moderately enlarged. 7. There is mild aortic valve sclerosis. 8. The mitral valve has severe calcified posterior annulus. 9. There is trivial pericardial effusion. Review of Systems Review of Systems: She is not active. She is in bed most of the time. She does not participate in physical activities. She has lost mobility in the left leg in the last several months, now not assisting at all when her moves her or changes or diaper. She denies leg swelling or abdominal bloating. She eats small meals, describes early satiety, no worse lately. She has not had extra salt lately, has been compliant with medications. Elmer tells me that she was 170 lb, but has gained 30 pounds in the last few months. She is now 200 lb. All systems reviewed & are unremarkable except as noted in HPI and below PMFSH Past Medical History Medical History Diastolic dysfunction Hyperdynamic LV systolic function with an EF estimated at greater than 70% with grade 1 diastolic dysfunction on echo in 05/2024. Cerebrovascular accident Cardiac arrest (03/2024) Due to massive pulmonary embolism. Type 2 diabetes mellitus Pulmonary emboli (03/2024) Acute left ROSHAN ischemic stroke (02/2024) Resultant right hemiparesis. Chronic renal insufficiency, stage III (moderate) Essential hypertension Mixed hyperlipidemia Peripheral vascular disease Tobacco abuse Vitamin D deficiency Surgical History Surgical History History of thrombectomy (03/2024) Saddle pulmonary emboli leading to cardiac arrest. Family History Family History Mother Hypertension Father Cancer Other Diabetes mellitus Family history of kidney disease Social History Social History Social History: Surrogate medical decision maker: Ankit Wyatt, spouse. Code status: Full code. Smoking packs per day: 1 Smoking cigarettes per day: 20.0 Years smoked: 57 Smoking pack-years: 57.00 Smoking status: Never smoker Second hand tobacco smoke exposure: No Alcohol intake: never Substance use: never Substance use type: does not use Do You Feel Safe in your Home?: Yes Lack of Transportation: No Lack of Food: Never True Current Housing: I Have Housing Concerned About Future Housing: No Difficulty Paying Gas/Electric Bills: No Difficulty Paying for Meds: No Currently Unemployed: No Education: Associate Degree Difficulty w/ Childcare or Family Care: No Additional living arrangements comments: Lives with spouse in [place]. Spiritual care concerns: No Agree to blood products: Yes Meds Home Medications and Allergies Home Medications ?Medication ?Instructions ?Recorded ?Confirmed ?Type aspirin 81 mg tablet,delayed 81 mg PO DAILY 05/11/24 08/04/25 History release Held on 03/07/25. Instructions: Resume on 03/14/25. vit C 250 mg-E 90 mg-zinc 40 1 tablet PO QAM AND QPM 07/17/24 08/04/25 History mg-copper 1 wz-jidgba-jhcshz chew tablet (PreserVision AREDS-2) mirtazapine 15 mg tablet (Remeron) 7.5 mg (1/2 x 15 mg) PO HS #45 tabs 10/15/24 08/04/25 Rx amlodipine 10 mg tablet 10 mg PO DAILY #90 tabs 12/01/24 08/04/25 Rx apixaban 5 mg tablet (Eliquis) 5 mg PO BID #60 tabs 02/27/25 08/04/25 Rx Held on 03/07/25. Instructions: Resume on 03/14/25. methimazole 5 mg tablet 10 mg (2 x 5 mg) PO DAILY 3 months 06/07/25 08/04/25 Rx #180 tabs terazosin 1 mg capsule 4 mg PO HS 08/04/25 08/04/25 History venlafaxine 75 mg tablet 75 mg PO DAILY 08/04/25 08/04/25 History Allergies Allergy/AdvReac Type Severity Reaction Status Date / Time Aswduzu-RLW-RzZ Reductase Allergy Unknown Weakness Verified 08/04/25 23:18 Inhibitor (Gnteeqd-Bkq-Bro Reductase Inhibitor) Vital Signs Vital Signs - 24 hr 08/04/25 14:35 08/04/25 14:43 08/04/25 14:46 Temperature 36.9 C Pulse Rate 85 81 81 Respiratory Rate 28 H 22 H 28 H Blood Pressure 157/65 H 157/65 H 146/68 H Pulse Oximetry 96 96 97 Oxygen Delivery Nasal Cannula Oxygen Flow Rate 2 08/04/25 15:01 08/04/25 15:15 08/04/25 15:16 Temperature Pulse Rate 84 88 78 Respiratory Rate 26 H 25 H 28 H Blood Pressure 154/66 H 150/68 H Pulse Oximetry 95 97 95 Oxygen Delivery Oxygen Flow Rate 08/04/25 16:15 08/04/25 16:37 08/04/25 16:39 Temperature Pulse Rate 74 78 79 Respiratory Rate 24 H 28 H 20 Blood Pressure 160/66 H Pulse Oximetry 97 97 97 Oxygen Delivery Oxygen Flow Rate 08/04/25 16:45 08/04/25 16:46 08/04/25 17:00 Temperature Pulse Rate 75 75 74 Respiratory Rate 22 H 23 H 19 Blood Pressure 165/69 H Pulse Oximetry 98 96 98 Oxygen Delivery Oxygen Flow Rate 08/04/25 17:01 08/04/25 17:15 08/04/25 17:16 Temperature Pulse Rate 77 76 74 Respiratory Rate 19 28 H 26 H Blood Pressure 171/66 H 168/70 H Pulse Oximetry 96 98 96 Oxygen Delivery Oxygen Flow Rate 08/04/25 17:30 08/04/25 17:31 08/04/25 17:46 Temperature Pulse Rate 80 82 81 Respiratory Rate 31 H 25 H 21 H Blood Pressure 166/97 H 173/69 H Pulse Oximetry 97 96 Oxygen Delivery Oxygen Flow Rate 08/04/25 19:56 08/04/25 20:00 08/04/25 20:00 Temperature 36.8 C Pulse Rate 81 72 72 Respiratory Rate 20 20 Blood Pressure 129/54 L Pulse Oximetry 92 92 Oxygen Delivery Room Air Oxygen Flow Rate 08/04/25 20:00 08/04/25 22:00 08/05/25 00:00 Temperature 36.6 C 36.8 C Pulse Rate 72 72 78 Respiratory Rate 18 Blood Pressure 143/74 H Pulse Oximetry 93 Oxygen Delivery Oxygen Flow Rate 08/05/25 00:00 08/05/25 00:00 08/05/25 03:00 Temperature Pulse Rate 78 78 78 Respiratory Rate 18 Blood Pressure Pulse Oximetry 93 Oxygen Delivery Room Air Oxygen Flow Rate 08/05/25 03:05 08/05/25 03:05 08/05/25 04:00 Temperature 36.6 C Pulse Rate 78 78 73 Respiratory Rate 18 18 Blood Pressure 144/82 H Pulse Oximetry 93 97 Oxygen Delivery Room Air Oxygen Flow Rate 08/05/25 07:58 Temperature 36.4 C Pulse Rate 80 Respiratory Rate 16 Blood Pressure 160/71 H Pulse Oximetry 98 Oxygen Delivery Oxygen Flow Rate Exam Narrative: GEN: Alert, oriented, not in distress. She is able to answer questions well. HEENT: pupils are equal, EOMI, symmetrical face; oral membranes moist, Mallampati IV airway NECK: Trachea is midline CHEST: Equal air entry, symmetric excursion, decreased breath sounds on the right side 2/3 up the posterior chest wall. The left side is clear. CV: Regular S1S2 no m/g/r ABD : (+) bowel sounds Extremities : no clubbing, cyanosis, or edema. She has atrophy in the right foot. no calf tenderness. PSYCH: normal thought and speech. She is not strong, cannot assist in leaning forward so I can listen to her posterior chest. helps move her forward. Results Laboratory Findings 08/05/25 03:40 08/04/25 16:51 Abnormal lab findings: Abnormal Labs 08/04/25 08/04/25 08/04/25 14:45 16:51 20:02 MCHC 31.9 L Neut % (Auto) 76.3 H Lymph % (Auto) 12.2 L Wagoner % (Auto) Wagoner # (Auto) 0.7 H Eos # (Auto) Sodium 136 L 136 L BUN 26 H D 27 H Creatinine 1.88 H 1.87 H Estimated GFR 26 L 26 L Glucose 241 H 176 H POC Capillary Glucose 176 H Hemoglobin A1c Total Bilirubin 0.1 L C-Reactive Protein 3.0 H NT-Pro-B Natriuret Pep 489 H 08/05/25 08/05/25 08/05/25 03:40 07:46 11:27 MCHC 31.7 L Neut % (Auto) Lymph % (Auto) 16.1 L Wagoner % (Auto) 8.6 H Wagoner # (Auto) 0.8 H Eos # (Auto) 0.4 H Sodium BUN Creatinine Estimated GFR Glucose POC Capillary Glucose 138 H 246 H Hemoglobin A1c 6.7 H Total Bilirubin C-Reactive Protein NT-Pro-B Natriuret Pep Diagnostic Findings Chest x-ray: report reviewed and image reviewed CT scan - chest: report reviewed and image reviewed
[2025-08-05] MEDS: INSULIN ASPART (*BKC) 100 UNITS/ML SUB-Q (12:07)
--- NOTE | 2025-08-05 13:00 | P.PNIM_ITS ---
Progress Note: A&P Assessment and Plan (1) Pleural effusion on right: Code(s): J90 - Pleural effusion, not elsewhere classified Status: Acute Assessment and Plan: Patient would benefit from a thoracentesis, unable to do this until Wednesday, will diurese over weekend Hold Eliquis Weight based Lovenox (2) Acute CHF: Code(s): I50.9 - Heart failure, unspecified Status: Acute Assessment and Plan: No Pulm edema No diurectics for now monitor (3) Pneumonia: Code(s): J18.9 - Pneumonia, unspecified organism Status: Acute Assessment and Plan: CT Chest showed large right bronchopneumonia F/u cultures [place], Flagyl and Azithromycin PUlm consulted for possible bronch (4) Acute respiratory failure with hypoxia: Code(s): J96.01 - Acute respiratory failure with hypoxia Status: Acute Assessment and Plan: Likely secondary to pneumonia and large pleural effusion Continue abx as above pUlm consulted (5) Type 2 diabetes mellitus: Code(s): E11.9 - Type 2 diabetes mellitus without complications Status: Acute Assessment and Plan: Felicita Cooper and SSI will bring in her food from home (6) Chronic renal insufficiency, stage III (moderate): Code(s): N18.3 - Chronic kidney disease, stage 3 (moderate) Status: Acute Assessment and Plan: Will monitor kidney function while diuresing (7) Constipation: Code(s): K59.00 - Constipation, unspecified Status: Acute Assessment and Plan: Per patient has very hard stools about every 4 days Senna MiraLax (8) Appetite disorder: Code(s): F50.9 - Eating disorder, unspecified Status: Acute Assessment and Plan: will bring in food for the patient Regular diet (9) Calf pain: Code(s): M79.669 - Pain in unspecified lower leg Status: Acute Assessment and Plan: Venous Doppler pending Robaxin Tylenol Plan DVT prophylaxis ALEXANDRAMaria Luz chrosalind on hold Subjective Date/time seen: 08/05/25 13:00 Interval history: Comfortable at bedside Review of Systems Review of Systems: 12 systems were reviewed and are negativ e except for as per HPI. Exam Narrative: General: well appearing, appears stated age. HEENT: normocephalic, atraumatic. Mucous membranes moist. EOMI, PERRLA, bilateral sclera anicteric, no conjunctival injection. Neck supple without JVD, lymphadenopathy, or bruit. Respiratory: Unable to talk in full sentences due to shortness of breath, expiratory wheezes Cardiovascular: Regular rate and rhythm, normal S1-S2 upon ascultation. No murmurs, rubs, or clicks. PMI is nondisplaced, capillary refill less than 3 second. Abdomen: Soft, round, no pulsatile masses, nondistended and nontender. No rebound, no guarding. No CVA tenderness, no hepatosplenomegaly. Bowel sounds present to all four quadrants. No high pitch or tinkling sounds, resonant to percussion. Extremities: No cyanosis, clubbing, or edema present. Pulses are palpable 2/2. Right upper extremity weak, left strong, right lower extremity flaccid, left strong Neuro: Alert and orientated x 4. PERRLA. Cranial nerves 2-12 intact without focal deficit. Skin: Warm, dry, and intact, without rash, erythema, or lesion. Psych: pleasant, cooperative, normal speech, normal affect, no hallucinations, no dysarthia 3 L nasal cannula Objective Data Vital Signs Vital Signs: Vital Signs - 24 hr 08/04/25 14:35 08/04/25 14:43 08/04/25 14:46 Temperature 98.4 F Pulse Rate 85 81 81 Respiratory Rate 28 H 22 H 28 H Blood Pressure 157/65 H 157/65 H 146/68 H Pulse Oximetry 96 96 97 Oxygen Delivery Nasal Cannula Oxygen Flow Rate 2 08/04/25 15:01 08/04/25 15:15 08/04/25 15:16 Temperature Pulse Rate 84 88 78 Respiratory Rate 26 H 25 H 28 H Blood Pressure 154/66 H 150/68 H Pulse Oximetry 95 97 95 Oxygen Delivery Oxygen Flow Rate 08/04/25 16:15 08/04/25 16:37 08/04/25 16:39 Temperature Pulse Rate 74 78 79 Respiratory Rate 24 H 28 H 20 Blood Pressure 160/66 H Pulse Oximetry 97 97 97 Oxygen Delivery Oxygen Flow Rate 08/04/25 16:45 08/04/25 16:46 08/04/25 17:00 Temperature Pulse Rate 75 75 74 Respiratory Rate 22 H 23 H 19 Blood Pressure 165/69 H Pulse Oximetry 98 96 98 Oxygen Delivery Oxygen Flow Rate 08/04/25 17:01 08/04/25 17:15 08/04/25 17:16 Temperature Pulse Rate 77 76 74 Respiratory Rate 19 28 H 26 H Blood Pressure 171/66 H 168/70 H Pulse Oximetry 96 98 96 Oxygen Delivery Oxygen Flow Rate 08/04/25 17:30 08/04/25 17:31 08/04/25 17:46 Temperature Pulse Rate 80 82 81 Respiratory Rate 31 H 25 H 21 H Blood Pressure 166/97 H 173/69 H Pulse Oximetry 97 96 Oxygen Delivery Oxygen Flow Rate 08/04/25 19:56 08/04/25 20:00 08/04/25 20:00 Temperature 98.2 F Pulse Rate 81 72 72 Respiratory Rate 20 20 Blood Pressure 129/54 L Pulse Oximetry 92 92 Oxygen Delivery Room Air Oxygen Flow Rate 08/04/25 20:00 08/04/25 22:00 08/05/25 00:00 Temperature 97.8 F 98.3 F Pulse Rate 72 72 78 Respiratory Rate 18 Blood Pressure 143/74 H Pulse Oximetry 93 Oxygen Delivery Oxygen Flow Rate 08/05/25 00:00 08/05/25 00:00 08/05/25 03:00 Temperature Pulse Rate 78 78 78 Respiratory Rate 18 Blood Pressure Pulse Oximetry 93 Oxygen Delivery Room Air Oxygen Flow Rate 08/05/25 03:05 08/05/25 03:05 08/05/25 04:00 Temperature 97.9 F Pulse Rate 78 78 73 Respiratory Rate 18 18 Blood Pressure 144/82 H Pulse Oximetry 93 97 Oxygen Delivery Room Air Oxygen Flow Rate 08/05/25 07:58 08/05/25 08:00 08/05/25 08:00 Temperature 97.6 F Pulse Rate 80 71 71 Respiratory Rate 16 14 Blood Pressure 160/71 H Pulse Oximetry 98 96 Oxygen Delivery Room Air Oxygen Flow Rate 08/05/25 10:00 08/05/25 12:00 08/05/25 12:00 Temperature 98.9 F Pulse Rate 75 72 72 Respiratory Rate 14 14 Blood Pressure 155/60 H Pulse Oximetry 96 96 Oxygen Delivery Room Air Oxygen Flow Rate 08/05/25 12:00 Temperature Pulse Rate 78 Respiratory Rate Blood Pressure Pulse Oximetry Oxygen Delivery Oxygen Flow Rate Intake/Output Intake/Output: Intake & Output 08/02/25 08/03/25 08/04/25 08/05/25 23:59 23:59 23:59 23:59 Intake Total 50 200 Balance 50 200 Meds/Results Medications: Active Medications Generic Name Dose Route Start Last Admin Trade Name Freq PRN Reason Stop Dose Admin Acetaminophen 650 mg 08/04/25 22:11 08/04/25 23:41 Acetaminophen Elixir 325 Mg/10.15 Ml Udc PO 650 mg Q4H PRN Administration Mild Pain (1-3) or Fever Amlodipine Besylate 10 mg 08/05/25 09:00 08/05/25 09:40 Amlodipine Besylate 10 Mg Tablet PO 10 mg DAILY LITO Administration Dextrose 12.5 gm 08/04/25 16:37 Dextrose 50% 25 Gm/50 Ml Syringe IV PUSH PRN PRN Hypoglycemia Protocol Enoxaparin Sodium 100 mg 08/05/25 17:00 Enoxaparin 100 Mg/Ml Syringe SUB-Q DAILY@1700 LITO Furosemide 40 mg 08/05/25 09:00 08/05/25 09:40 Furosemide Inj 40 Mg/4 Ml Vial IV PUSH 40 mg BID LITO Administration Glucagon 1 mg 08/04/25 16:37 Glucagon For Inj 1 Mg Vial IM PRN PRN Hypoglycemia Protocol Glucose 15 gm 08/04/25 16:37 Glucose Oral Gel 15 Gm Of Glucse In 37.5 Gm Tube PO PRN PRN Hypoglycemia Protocol Guaifenesin 1,200 mg 08/04/25 21:00 08/05/25 09:40 Guaifenesin 12 Hr 600 Mg Tabcr PO 1,200 mg Q12HR LITO Administration Guaifenesin 200 mg 08/04/25 22:08 Guaifenesin 200 Mg/10 Ml Udc PO Q4H PRN Cough Ceftriaxone Sodium 1 gm/ 50 mls @ 100 mls/hr 08/05/25 17:00 Sodium Chloride IVPB Q24H LITO Azithromycin 500 mg/ Sodium 250 mls @ 250 mls/hr 08/05/25 17:00 Chloride IVPB 08/08/25 17:59 Q24H LITO Dextrose 1,000 mls @ 100 mls/hr 08/04/25 16:37 Dextrose 5% 1,000 Ml IVPB PRN PRN Hypoglycemia Protocol Insulin Aspart 2 - 5 units 08/04/25 17:00 08/05/25 12:07 Insulin Aspart (*Bkc) 100 Units/Ml SUB-Q 3 units TIDWM LITO Administration Protocol Insulin Glargine 14 units 08/04/25 21:00 08/04/25 22:06 Insulin Glargine (*Bkc) 100 Units/Ml 0.15 units/kg (14 units) Not Given SUB-Q HS LITO Methimazole 10 mg 08/05/25 09:00 08/05/25 09:39 Methimazole 10 Mg Tab PO 10 mg DAILY LITO Administration Methocarbamol 500 mg 08/04/25 20:32 Methocarbamol 500 Mg Tablet PO QID PRN Spasms Mirtazapine 7.5 mg 08/04/25 23:05 08/05/25 00:44 Mirtazapine 7.5 Mg Tablet PO Not Given HS LITO Multivitamins/Minerals 1 tablet 08/05/25 09:00 08/05/25 09:39 Opti-Gen Tab PO 1 tablet BID LITO Administration Perflutren Lipid Microsphere 0 ml 08/04/25 16:37 Perflutren Lipid Microspheres 1.5 Ml Vial Diluted To 10 Ml Total Volume IV PUSH 08/07/25 16:38 ONCE PRN adequate visualization Protocol Polyethylene Glycol 17 gm 08/05/25 09:00 08/05/25 09:39 Polyethylene Glycol 3350 17 Gm Powd.Pack PO 17 gm QAM LITO Administration Senna/Docusate Sodium 1 tab 08/04/25 21:00 08/04/25 22:05 Senna/Docusate Sodium Tablet PO 1 tab HS LITO Administration Terazosin HCl 4 mg 08/04/25 23:05 08/05/25 00:44 Terazosin Hcl 1 Mg Capsule PO Not Given HS LITO Venlafaxine HCl 75 mg 08/05/25 09:00 08/05/25 09:41 Venlafaxine Hcl 75 Mg Tablet PO 75 mg DAILY LITO Administration Radiology Results: ITS Impressions Chest X-Ray 08/04/25 15:46 Impression: CHF. Superimposed right lower lobe pneumonia Chest CT 08/04/25 16:15 IMPRESSION: Large focus of right-sided bronchopneumonia. Bronchoscopy may be of benefit to further evaluate. Venous Doppler Study 08/05/25 10:23 IMPRESSION: 1. No deep venous thrombosis. Labs Labs: Laboratory Results - last 24 hr 08/04/25 08/04/25 08/04/25 14:45 16:51 20:02 WBC 8.7 RBC 4.27 Hgb 12.5 Hct 39.2 MCV 91.8 MCH 29.3 MCHC 31.9 L RDW 13.4 Plt Count 255 MPV 9.7 Immature Gran % (Auto) 0.3 Neut % (Auto) 76.3 H Lymph % (Auto) 12.2 L [place] % (Auto) 7.5 Eos % (Auto) 3.1 Baso % (Auto) 0.6 Lymph # (Auto) 1.06 [place] # (Auto) 0.7 H Eos # (Auto) 0.3 Baso # (Auto) 0.1 Abs Immat Gran (auto) 0.03 Absolute Neuts (auto) 6.6 Absolute Nucleated RBC 0.000 Nucleated RBC % 0.0 Sodium 136 L 136 L Potassium 3.9 4.1 Chloride 99 101 Carbon Dioxide 30 29 Anion Gap 7 6 BUN 26 H D 27 H Creatinine 1.88 H 1.87 H Estim Creat Clear Calc 25 25 Estimated GFR 26 L 26 L Glucose 241 H 176 H POC Capillary Glucose 176 H Hemoglobin A1c Calcium 8.7 8.9 Total Bilirubin 0.1 L AST 26 ALT 16 Alkaline Phosphatase 94 C-Reactive Protein 3.0 H NT-Pro-B Natriuret Pep 489 H Total Protein 7.3 Albumin 3.6 08/05/25 08/05/25 08/05/25 03:40 07:46 11:27 WBC 9.2 RBC 4.29 Hgb 12.6 Hct 39.8 MCV 92.8 MCH 29.4 MCHC 31.7 L RDW 13.6 Plt Count 259 MPV 10.3 Immature Gran % (Auto) 0.3 Neut % (Auto) 70.4 Lymph % (Auto) 16.1 L [place] % (Auto) 8.6 H Eos % (Auto) 4.2 Baso % (Auto) 0.4 Lymph # (Auto) 1.48 [place] # (Auto) 0.8 H Eos # (Auto) 0.4 H Baso # (Auto) 0.0 Abs Immat Gran (auto) 0.03 Absolute Neuts (auto) 6.5 Absolute Nucleated RBC 0.000 Nucleated RBC % 0.0 Sodium Potassium Chloride Carbon Dioxide Anion Gap BUN Creatinine Estim Creat Clear Calc Estimated GFR Glucose POC Capillary Glucose 138 H 246 H Hemoglobin A1c 6.7 H Calcium Total Bilirubin AST ALT Alkaline Phosphatase C-Reactive Protein NT-Pro-B Natriuret Pep Total Protein Albumin Quality VTE Prophylaxis VTE prophylaxis: mechanical ordered and pharmacologic ordered
[2025-08-05] MEDS: metroNIDAZOLE 500 MG/ISO 100ML 500 MG/100 ML BAG 100 MG IVPB ×2 (14:27→22:20)
--- NOTE | 2025-08-05 15:50 | PCSTNOTE ---
Please refer to the Bedside Swallow Evaluation in the EMR. Please note, silent aspiration cannot be ruled out at bedside. This 75 year old female patient was evaluated at bedside to ensure swallowing safety during oral intake and to rule out aspiration pneumonia. The patient?s , Cornelio, was present throughout evaluation. Patient denies dysphagia at this time. The patient has a history of an acute L ROSHAN Ischemic Stroke? (02/2024) with residual R sided deficits and currently tested positive for pneumonia. Patient is very food selective. An oral motor exam was completed in which the pt demonstrated appropriate range of mobility and strength for oral intake. The pt is missing one tooth. Per COURTNEY Cook, the pt did well taking pills this morning crushed in ice cream. Trials of thin liquid (water), mixed consistency (fruit cocktail), puree (pudding), and solids (jessica cracker) were administered at bedside via spoon, straw, and hand. Throughout all trials of different consistencies, the pt demonstrated no s/s of aspiration. The pt?s vocal quality remained clear after all trials and the pt did not cough/throat clear. Oral transit was timely. No oral residue observed. Laryngeal elevation was adequate and timely for all swallows. Please note that silent aspiration cannot be ruled out at bedside. Given the results of this assessment, it is recommended this pt receive an oral diet of regular solids (IDDSI Level 7) and thin liquids (IDDSI Level 1). It is additionally recommended that the pt follow these standard swallowing precautions: Small bites/sips and sit upright during meals. No further ST is warranted at this time. Dr. Dupree, and COURTNEY Cook were notified of BSE results and recommendations. Thank you for this referral.
[2025-08-05] MEDS: AZITHROMYCIN IV 500 MG in SODIUM CHLORIDE 0.9% IV 250 ML IVPB (16:36)
[2025-08-05] MEDS: cefTRIAXone 1 GM in SODIUM CHLORIDE 0.9% IV 50 ML 100 ML IVPB (16:37)
[2025-08-05] MEDS: ENOXAPARIN 100 MG/ML SYRINGE SUB-Q (16:38)
[2025-08-05] MEDS: SENNA/DOCUSATE SODIUM TABLET 1 TAB PO (21:19)
[2025-08-05] MEDS: MIRTAZAPINE 7.5 MG TABLET PO (21:20)
[2025-08-05] MEDS: TERAZOSIN HCL 1 MG CAPSULE 4 MG PO (21:20)
[2025-08-06] VITALS (10 sets, daily range): BP systolic 155–168; BP diastolic 66–76; PULSE 66–95; RESP 17–20; TEMP 36.6–37.2; O2SAT 92–98
[2025-08-06 05:01] LABS: Procalcitonin 0.1 ng/mL
[2025-08-06 05:51] LABS: Alveolar/Arterial O2 Gradient 39.4 mmHg; Carboxyhemoglobin 0.9 % THb (0-2.0); Fractional Inspired Oxygen 24 %; HCO3 ABG 32.8 mEq/l (22.0-26.0); Methemoglobin ABG 0.1 %THb (0-1.5); Oxygen Content ABG 18.2 %vol (16.0-22.0); Oxygen Saturation ABG 94.6 % (95.0-100.0); PCO2 ABG 50.7 mmHg (35.0-45.0); PO2 ABG 71.4 mmHg (80.0-100.0); PO2 FiO2 Ratio Arterial Blood 2.98 %; Reduced Hemoglobin 5.4 %THb (0-5.0)
[2025-08-06 05:52] LABS: Liters per Minute 1.0 LPM; Site Drawn LEFT BRACHIAL
[2025-08-06] MEDS: guaiFENesin 12 HR 600 MG TABCR 1200 MG PO ×2 (07:37→21:35)
[2025-08-06] MEDS: OPTI-GEN TAB 1 TABLET PO ×2 (07:37→17:30)
[2025-08-06] MEDS: VENLAFAXINE HCL 75 MG TABLET PO (07:38)
[2025-08-06] MEDS: FUROSEMIDE INJ 40 MG/4 ML VIAL IV PUSH ×2 (07:38→17:23)
--- NOTE | 2025-08-06 09:19 | P.PNCA_ITS ---
Progress Note: A&P Assessment and Plan (1) Pneumonia: Code(s): J18.9 - Pneumonia, unspecified organism Status: Acute Assessment and Plan: 75-year-old female with hypertension, CHF with preserved ejection fraction, history of PE as per patient when she was hospitalized for CVA at [facility] in February 2024 (on anticoagulation with apixaban at home), CKD, history of CVA with right-sided weakness; right pleural effusion status post ultrasound-guided thoracentesis on 07/19/2024, immobilized status. Patient admitted to the hospital with worsening dyspnea. CT chest reportedly showed Large focus of right-sided bronchopneumonia and right pleural effusion. Patient's clinical presentation primarily due to underlying lung disease. No acute changes on EKG. NTpro BNP mildly elevated. -appropriate antibiotics as per primary team. -plan right thoracentesis today.. -recommend pulmonary evaluation -currently on diuresis with furosemide IV. Monitor electrolytes and renal fu nction closely. Avoid aggressive diuresis. Shift to p.o. furosemide after her thoracentesis today. -repeat echo with Doppler has been ordered by primary team. Optimization of t reatment for CHF with preserved ejection fraction can be done as an outpatient when patient's clinical stability. Medications may include SGLT2 inhibitor, ARNI. Will have to be cautious with MRA due to renal insufficiency. -cardiology will sign off. Please call with any questions. (2) Pleural effusion: Code(s): J90 - Pleural effusion, not elsewhere classified Status: Acute Assessment and Plan: Would benefit from thoracentesis. Anticoagulation with apixaban on hold, currently on low-molecular weight heparin (3) Diastolic CHF: Code(s): I50.30 - Unspecified diastolic (congestive) heart failure Status: Acute Assessment and Plan: Management options described above. Avoid aggressive diuresis. Subjective Date/time seen: 08/06/25 09:19 Interval history: Cardiology follow-up visit Date of service 08/06/2025: She is feeling a little bit better this morning. She is complaining of productive cough. No shortness of breath, chest pain, palpitations. Review of Systems Review of Systems: General: Positive for fatigue Psychological: Positive for anxiety Ophthalmic: negative for loss of vision ENT: Negative for epistaxis, headaches Allergy and immunology: Negative for hives, nasal congestion Hematologic and lymphatic: Negative for overt bleeding problems Endocrine: Negative for hot flashes, palpitations Respiratory: Positive for cough with yellowish expectoration; no hemoptysis Cardiovascular: Negative for chest pain, positive for worsening dyspnea Gastrointestinal: Negative for abdominal pain; positive for constipation Musculoskeletal: Negative for myalgia, joint pains Neurological: Positive for right-sided weakness after stroke Dermatological: Negative for rash, skin discoloration Exam Narrative: PHYSICAL EXAMINATION: GENERAL: Alert, oriented, no acute distress; obese MENTAL STATUS: affect appropriate to mood EYES: Extraocular movements intact, no pallor EARS: External ears appear normal, hearing grossly normal NOSE: Normal and patent, no discharge MOUTH: Mucous membranes moist, tongue normal NECK: Supple, no JVD CHEST: Decreased effort, absent breath sounds right base HEART: Normal rate, regular rhythm, normal S1 and S2, soft systolic murmur LSB and base ABDOMEN: Soft, nontender NEUROLOGICAL: Alert, normal speech, right-sided weakness MUSCULOSKELETAL: No major deformity, no amputation EXTREMITIES: Trace pedal edema, no clubbing, no cyanosis SKIN: no rash on the exposed area, no cyanosis PSYCHIATRIC: Normal mood, appropriate affect Objective Data Vital Signs Vital Signs: Vital Signs - 24 hr 08/05/25 10:00 08/05/25 12:00 08/05/25 12:00 Temperature 37.2 C Pulse Rate 75 72 72 Respiratory Rate 14 14 Blood Pressure 155/60 H Pulse Oximetry 96 96 Oxygen Delivery Room Air Oxygen Flow Rate 08/05/25 12:00 08/05/25 14:00 08/05/25 15:41 Temperature 36.9 C Pulse Rate 78 75 80 Respiratory Rate 22 H Blood Pressure 163/67 H Pulse Oximetry 96 Oxygen Delivery Oxygen Flow Rate 08/05/25 15:46 08/05/25 16:00 08/05/25 16:00 Temperature Pulse Rate 99 99 Respiratory Rate 22 H Blood Pressure Pulse Oximetry 96 Oxygen Delivery Nasal Cannula Nasal Cannula Oxygen Flow Rate 1 3 08/05/25 20:00 08/05/25 20:00 08/05/25 20:44 Temperature 36.9 C Pulse Rate 73 80 80 Respiratory Rate 21 H 21 H Blood Pressure 171/64 H Pulse Oximetry 96 96 Oxygen Delivery Room Air Oxygen Flow Rate 08/06/25 00:00 08/06/25 00:00 08/06/25 00:29 Temperature 37.1 C Pulse Rate 66 74 74 Respiratory Rate 20 20 Blood Pressure 155/66 H Pulse Oximetry 96 96 Oxygen Delivery Room Air Oxygen Flow Rate 08/06/25 04:00 08/06/25 04:00 08/06/25 05:29 Temperature 36.9 C Pulse Rate 74 74 74 Respiratory Rate 20 20 Blood Pressure 164/67 H Pulse Oximetry 96 96 Oxygen Delivery Room Air Oxygen Flow Rate 08/06/25 06:00 08/06/25 08:00 Temperature 36.9 C Pulse Rate 74 79 Respiratory Rate 18 Blood Pressure 163/67 H Pulse Oximetry 98 Oxygen Delivery Oxygen Flow Rate Intake/Output Intake/Output: Intake & Output 08/03/25 08/04/25 08/05/25 08/06/25 23:59 23:59 23:59 23:59 Intake Total 50 1850 200 Output Total 1400 300 Balance 50 450 -100 Meds/Results Medications: Active Medications Generic Name Dose Route Start Last Admin Trade Name Freq PRN Reason Stop Dose Admin Acetaminophen 650 mg 08/04/25 22:11 08/04/25 23:41 Acetaminophen Elixir 325 Mg/10.15 Ml Udc PO 650 mg Q4H PRN Administration Mild Pain (1-3) or Fever Amlodipine Besylate 10 mg 08/05/25 09:00 08/06/25 07:38 Amlodipine Besylate 10 Mg Tablet PO 10 mg DAILY LITO Administration Dextrose 12.5 gm 08/04/25 16:37 Dextrose 50% 25 Gm/50 Ml Syringe IV PUSH PRN PRN Hypoglycemia Protocol Enoxaparin Sodium 100 mg 08/05/25 17:00 08/05/25 16:38 Enoxaparin 100 Mg/Ml Syringe SUB-Q 100 mg DAILY@1700 LITO Administration Furosemide 40 mg 08/05/25 09:00 08/06/25 07:38 Furosemide Inj 40 Mg/4 Ml Vial IV PUSH 40 mg BID LITO Administration Glucagon 1 mg 08/04/25 16:37 Glucagon For Inj 1 Mg Vial IM PRN PRN Hypoglycemia Protocol Glucose 15 gm 08/04/25 16:37 Glucose Oral Gel 15 Gm Of Glucse In 37.5 Gm Tube PO PRN PRN Hypoglycemia Protocol Guaifenesin 1,200 mg 08/04/25 21:00 08/06/25 07:37 Guaifenesin 12 Hr 600 Mg Tabcr PO 1,200 mg Q12HR LITO Administration Guaifenesin 200 mg 08/04/25 22:08 Guaifenesin 200 Mg/10 Ml Udc PO Q4H PRN Cough Ceftriaxone Sodium 1 gm/ 50 mls @ 100 mls/hr 08/05/25 17:00 08/05/25 16:37 Sodium Chloride IVPB 100 mls/hr Q24H LITO Administration Azithromycin 500 mg/ Sodium 250 mls @ 250 mls/hr 08/05/25 17:00 08/05/25 17:35 Chloride IVPB 08/08/25 17:59 Infused Q24H LITO Infusion Dextrose 1,000 mls @ 100 mls/hr 08/04/25 16:37 Dextrose 5% 1,000 Ml IVPB PRN PRN Hypoglycemia Protocol Metronidazole 500 mg in 100 mls @ 100 mls/hr 08/05/25 14:00 08/05/25 22:20 Flagyl 500 Mg/Iso Soln 100 Ml IVPB 100 mls/hr Q8HR LITO Administration Insulin Aspart 2 - 5 units 08/04/25 17:00 08/05/25 15:59 Insulin Aspart (*Bkc) 100 Units/Ml SUB-Q Not Given TIDWM LITO Protocol Insulin Glargine 14 units 08/04/25 21:00 08/05/25 21:20 Insulin Glargine (*Bkc) 100 Units/Ml 0.15 units/kg (14 units) Not Given SUB-Q HS LITO Methimazole 10 mg 08/05/25 09:00 08/06/25 07:38 Methimazole 10 Mg Tab PO 10 mg DAILY LITO Administration Methocarbamol 500 mg 08/04/25 20:32 Methocarbamol 500 Mg Tablet PO QID PRN Spasms Mirtazapine 7.5 mg 08/04/25 23:05 08/05/25 21:20 Mirtazapine 7.5 Mg Tablet PO 7.5 mg HS LITO Administration Multivitamins/Minerals 1 tablet 08/05/25 09:00 08/06/25 07:37 Opti-Gen Tab PO 1 tablet BID LITO Administration Perflutren Lipid Microsphere 0 ml 08/04/25 16:37 Perflutren Lipid Microspheres 1.5 Ml Vial Diluted To 10 Ml Total Volume IV PUSH 08/07/25 16:38 ONCE PRN adequate visualization Protocol Polyethylene Glycol 17 gm 08/05/25 09:00 08/06/25 07:37 Polyethylene Glycol 3350 17 Gm Powd.Pack PO 17 gm QAM LITO Administration Senna/Docusate Sodium 1 tab 08/04/25 21:00 08/05/25 21:19 Senna/Docusate Sodium Tablet PO 1 tab HS LITO Administration Terazosin HCl 4 mg 08/04/25 23:05 08/05/25 21:20 Terazosin Hcl 1 Mg Capsule PO 4 mg HS LITO Administration Venlafaxine HCl 75 mg 08/05/25 09:00 08/06/25 07:38 Venlafaxine Hcl 75 Mg Tablet PO 75 mg DAILY LITO Administration Radiology Results: ITS Impressions Chest X-Ray 08/04/25 15:46 Impression: CHF. Superimposed right lower lobe pneumonia Chest CT 08/04/25 16:15 IMPRESSION: Large focus of right-sided bronchopneumonia. Bronchoscopy may be of benefit to further evaluate. Venous Doppler Study 08/05/25 10:23 IMPRESSION: 1. No deep venous thrombosis. Labs Labs: Laboratory Results - last 24 hr 08/05/25 08/05/25 08/06/25 11:27 15:32 04:02 Puncture Site ABG pH ABG pCO2 ABG pO2 ABG PO2/FiO2 Ratio ABG HCO3 ABG O2 Saturation ABG O2 Content ABG Base Excess A-a Gradient Oxyhemoglobin Carboxyhemoglobin Methemoglobin Reduced Hemoglobin Total Hemoglobin O2 Delivery Device O2 Liters/Min FiO2 POC Capillary Glucose 246 H 147 H Procalcitonin 0.1 08/06/25 08/06/25 05:27 07:18 Puncture Site Left brachial ABG pH 7.429 ABG pCO2 50.7 H ABG pO2 71.4 L ABG PO2/FiO2 Ratio 2.98 ABG HCO3 32.8 H ABG O2 Saturation 94.6 L ABG O2 Content 18.2 ABG Base Excess 7.1 A-a Gradient 39.4 Oxyhemoglobin 93.6 Carboxyhemoglobin 0.9 Methemoglobin 0.1 Reduced Hemoglobin 5.4 H Total Hemoglobin 13.8 O2 Delivery Device Nasal cannula O2 Liters/Min 1.0 FiO2 24 POC Capillary Glucose 131 H Procalcitonin Quality VTE Prophylaxis VTE prophylaxis: mechanical ordered and pharmacologic ordered
[2025-08-06] MEDS: PERFLUTREN LIPID MICROSPHERES 1.5 ML VIAL DILUTED TO 10 ML TOTAL VOLUME IV PUSH (11:15)
--- NOTE | 2025-08-06 11:28 | PC.NURSE ---
Spoke with cardiology and the patient was okayed for downgrade.
--- NOTE | 2025-08-06 12:58 | IVDEFINITY ---
Prior to administration of IV Definity the patient was educated on the risks and benefits of the imaging enhancing agent including potential adverse side effects. The patient verbalized understanding. Allergies were verified. No exclusion criteria were identified and at least one of the following inclusion criteria were met: 1) physician request, 2) patient technically difficult to image (per the [place] [employer] guidelines of two or more segments not discernable within the apical view), or 3) questionable left ventricular function. ?
[2025-08-06 13:37] LABS: Glucose 159 mg/dL (65-110); Total Protein 7.8 g/dL (6.3-8.2); Triglycerides 122 mg/dL (<150)
[2025-08-06] MEDS: metroNIDAZOLE 500 MG/ISO 100ML 500 MG/100 ML BAG 100 MG IVPB ×2 (13:54→21:51)
--- NOTE | 2025-08-06 16:26 | P.PNIM_ITS ---
Progress Note: A&P Assessment and Plan (1) Pleural effusion on right: Code(s): J90 - Pleural effusion, not elsewhere classified Status: Acute Assessment and Plan: Patient would benefit from a thoracentesis, unable to do this until Wednesday, will diurese over weekend Hold Eliquis Weight based Lovenox (2) Acute CHF: Code(s): I50.9 - Heart failure, unspecified Status: Acute Assessment and Plan: No Pulm edema No diurectics for now monitor (3) Pneumonia: Code(s): J18.9 - Pneumonia, unspecified organism Status: Acute Assessment and Plan: CT Chest showed large right bronchopneumonia with large right pleural effusion F/u cultures Rocephin, Flagyl and Azithromycin For thoracentesis tomorrow Pulmonology following (4) Acute respiratory failure with hypoxia: Code(s): J96.01 - Acute respiratory failure with hypoxia Status: Acute Assessment and Plan: Likely secondary to pneumonia and large pleural effusion Continue abx as above resolved, now on room air (5) Type 2 diabetes mellitus: Code(s): E11.9 - Type 2 diabetes mellitus without complications Status: Acute Assessment and Plan: Felicita Cooper and SSI will bring in her food from home (6) Chronic renal insufficiency, stage III (moderate): Code(s): N18.3 - Chronic kidney disease, stage 3 (moderate) Status: Acute Assessment and Plan: Will monitor kidney function while diuresing (7) Constipation: Code(s): K59.00 - Constipation, unspecified Status: Acute Assessment and Plan: Per patient has very hard stools about every 4 days Senna MiraLax (8) Appetite disorder: Code(s): F50.9 - Eating disorder, unspecified Status: Acute Assessment and Plan: will bring in food for the patient Regular diet (9) Calf pain: Code(s): M79.669 - Pain in unspecified lower leg Status: Acute Assessment and Plan: Venous Doppler negative Robaxin Tylenol Plan DVT prophylaxis ALEXANDRAChiqui ch on hold for thoracentesis Subjective Date/time seen: 08/06/25 16:26 Interval history: Comfortable at bedside Awaiting thoracentesis now on room air Review of Systems Review of Systems: 12 systems were reviewed and are negativ e except for as per HPI. Exam Narrative: General: well appearing, appears stated age. HEENT: normocephalic, atraumatic. Mucous membranes moist. EOMI, PERRLA, bilateral sclera anicteric, no conjunctival injection. Neck supple without JVD, lymphadenopathy, or bruit. Respiratory: Unable to talk in full sentences due to shortness of breath, expiratory wheezes Cardiovascular: Regular rate and rhythm, normal S1-S2 upon ascultation. No murmurs, rubs, or clicks. PMI is nondisplaced, capillary refill less than 3 second. Abdomen: Soft, round, no pulsatile masses, nondistended and nontender. No rebound, no guarding. No CVA tenderness, no hepatosplenomegaly. Bowel sounds present to all four quadrants. No high pitch or tinkling sounds, resonant to percussion. Extremities: No cyanosis, clubbing, or edema present. Pulses are palpable 2/2. Right upper extremity weak, left strong, right lower extremity flaccid, left strong Neuro: Alert and orientated x 4. PERRLA. Cranial nerves 2-12 intact without focal deficit. Skin: Warm, dry, and intact, without rash, erythema, or lesion. Psych: pleasant, cooperative, normal speech, normal affect, no hallucinations, no dysarthia 3 L nasal cannula Objective Data Vital Signs Vital Signs: Vital Signs - 24 hr 08/05/25 20:00 08/05/25 20:00 08/05/25 20:44 Temperature 98.5 F Pulse Rate 73 80 80 Respiratory Rate 21 H 21 H Blood Pressure 171/64 H Pulse Oximetry 96 96 Oxygen Delivery Room Air Oxygen Flow Rate 08/06/25 00:00 08/06/25 00:00 08/06/25 00:29 Temperature 98.7 F Pulse Rate 66 74 74 Respiratory Rate 20 20 Blood Pressure 155/66 H Pulse Oximetry 96 96 Oxygen Delivery Room Air Oxygen Flow Rate 08/06/25 04:00 08/06/25 04:00 08/06/25 05:29 Temperature 98.5 F Pulse Rate 74 74 74 Respiratory Rate 20 20 Blood Pressure 164/67 H Pulse Oximetry 96 96 Oxygen Delivery Room Air Oxygen Flow Rate 08/06/25 06:00 08/06/25 08:00 08/06/25 08:00 Temperature 98.4 F Pulse Rate 74 79 92 Respiratory Rate 18 18 Blood Pressure 163/67 H Pulse Oximetry 98 98 Oxygen Delivery Nasal Cannula Oxygen Flow Rate 1 08/06/25 08:00 08/06/25 09:02 08/06/25 10:00 Temperature Pulse Rate 92 75 Respiratory Rate Blood Pressure Pulse Oximetry Oxygen Delivery Nasal Cannula Oxygen Flow Rate 1 08/06/25 12:00 08/06/25 12:00 Temperature 97.9 F Pulse Rate 80 80 Respiratory Rate 18 Blood Pressure 161/67 H Pulse Oximetry 93 Oxygen Delivery Oxygen Flow Rate Intake/Output Intake/Output: Intake & Output 08/03/25 08/04/25 08/05/25 08/06/25 23:59 23:59 23:59 23:59 Intake Total 50 1950 560 Output Total 1400 1100 Balance 50 550 -540 Meds/Results Medications: Active Medications Generic Name Dose Route Start Last Admin Trade Name Freq PRN Reason Stop Dose Admin Acetaminophen 650 mg 08/04/25 22:11 08/04/25 23:41 Acetaminophen Elixir 325 Mg/10.15 Ml Udc PO 650 mg Q4H PRN Administration Mild Pain (1-3) or Fever Amlodipine Besylate 10 mg 08/05/25 09:00 08/06/25 07:38 Amlodipine Besylate 10 Mg Tablet PO 10 mg DAILY LITO Administration Dextrose 12.5 gm 08/04/25 16:37 Dextrose 50% 25 Gm/50 Ml Syringe IV PUSH PRN PRN Hypoglycemia Protocol Enoxaparin Sodium 100 mg 08/05/25 17:00 08/05/25 16:38 Enoxaparin 100 Mg/Ml Syringe SUB-Q 100 mg DAILY@1700 LITO Administration Furosemide 40 mg 08/05/25 09:00 08/06/25 07:38 Furosemide Inj 40 Mg/4 Ml Vial IV PUSH 40 mg BID LITO Administration Glucagon 1 mg 08/04/25 16:37 Glucagon For Inj 1 Mg Vial IM PRN PRN Hypoglycemia Protocol Glucose 15 gm 08/04/25 16:37 Glucose Oral Gel 15 Gm Of Glucse In 37.5 Gm Tube PO PRN PRN Hypoglycemia Protocol Guaifenesin 1,200 mg 08/04/25 21:00 08/06/25 07:37 Guaifenesin 12 Hr 600 Mg Tabcr PO 1,200 mg Q12HR LITO Administration Guaifenesin 200 mg 08/04/25 22:08 Guaifenesin 200 Mg/10 Ml Udc PO Q4H PRN Cough Ceftriaxone Sodium 1 gm/ 50 mls @ 100 mls/hr 08/05/25 17:00 08/05/25 16:37 Sodium Chloride IVPB 100 mls/hr Q24H LITO Administration Azithromycin 500 mg/ Sodium 250 mls @ 250 mls/hr 08/05/25 17:00 08/05/25 17:35 Chloride IVPB 08/08/25 17:59 Infused Q24H LITO Infusion Dextrose 1,000 mls @ 100 mls/hr 08/04/25 16:37 Dextrose 5% 1,000 Ml IVPB PRN PRN Hypoglycemia Protocol Metronidazole 500 mg in 100 mls @ 100 mls/hr 08/05/25 14:00 08/06/25 13:54 Flagyl 500 Mg/Iso Soln 100 Ml IVPB 100 mls/hr Q8HR LITO Administration Insulin Aspart 2 - 5 units 08/04/25 17:00 08/06/25 12:06 Insulin Aspart (*Bkc) 100 Units/Ml SUB-Q Not Given TIDWM L[facility]O Protocol Insulin Glargine 14 units 08/04/25 21:00 08/05/25 21:20 Insulin Glargine (*Bkc) 100 Units/Ml 0.15 units/kg (14 units) Not Given SUB-Q HS LITO Methimazole 10 mg 08/05/25 09:00 08/06/25 07:38 Methimazole 10 Mg Tab PO 10 mg DAILY LITO Administration Methocarbamol 500 mg 08/04/25 20:32 Methocarbamol 500 Mg Tablet PO QID PRN Spasms Mirtazapine 7.5 mg 08/04/25 23:05 08/05/25 21:20 Mirtazapine 7.5 Mg Tablet PO 7.5 mg HS LITO Administration Multivitamins/Minerals 1 tablet 08/05/25 09:00 08/06/25 07:37 Opti-Gen Tab PO 1 tablet BID LITO Administration Polyethylene Glycol 17 gm 08/05/25 09:00 08/06/25 07:37 Polyethylene Glycol 3350 17 Gm Powd.Pack PO 17 gm QAM LITO Administration Polyethylene Glycol 17 gm 08/06/25 12:52 Polyethylene Glycol 3350 17 Gm Powd.Pack PO QAM PRN Constipation Senna/Docusate Sodium 1 tab 08/04/25 21:00 08/05/25 21:19 Senna/Docusate Sodium Tablet PO 1 tab HS LITO Administration Terazosin HCl 4 mg 08/04/25 23:05 08/05/25 21:20 Terazosin Hcl 1 Mg Capsule PO 4 mg HS LITO Administration Venlafaxine HCl 75 mg 08/05/25 09:00 08/06/25 07:38 Venlafaxine Hcl 75 Mg Tablet PO 75 mg DAILY LITO Administration Radiology Results: ITS Impressions Chest X-Ray 08/04/25 15:46 Impression: CHF. Superimposed right lower lobe pneumonia Chest CT 08/04/25 16:15 IMPRESSION: Large focus of right-sided bronchopneumonia. Bronchoscopy may be of benefit to further evaluate. Venous Doppler Study 08/05/25 10:23 IMPRESSION: 1. No deep venous thrombosis. Labs Labs: Laboratory Results - last 24 hr 08/06/25 08/06/25 08/06/25 04:02 05:27 07:18 Puncture Site Left brachial ABG pH 7.429 ABG pCO2 50.7 H ABG pO2 71.4 L ABG PO2/FiO2 Ratio 2.98 ABG HCO3 32.8 H ABG O2 Saturation 94.6 L ABG O2 Content 18.2 ABG Base Excess 7.1 A-a Gradient 39.4 Oxyhemoglobin 93.6 Carboxyhemoglobin 0.9 Methemoglobin 0.1 Reduced Hemoglobin 5.4 H Total Hemoglobin 13.8 O2 Delivery Device Nasal cannula O2 Liters/Min 1.0 FiO2 24 Glucose POC Capillary Glucose 131 H Lactate Dehydrogenase Total Protein Triglycerides Procalcitonin 0.1 08/06/25 08/06/25 11:40 11:55 Puncture Site ABG pH ABG pCO2 ABG pO2 ABG PO2/FiO2 Ratio ABG HCO3 ABG O2 Saturation ABG O2 Content ABG Base Excess A-a Gradient Oxyhemoglobin Carboxyhemoglobin Methemoglobin Reduced Hemoglobin Total Hemoglobin O2 Delivery Device O2 Liters/Min FiO2 Glucose 159 H POC Capillary Glucose 149 H Lactate Dehydrogenase 189 Total Protein 7.8 Triglycerides 122 Procalcitonin Quality VTE Prophylaxis VTE prophylaxis: mechanical ordered and pharmacologic ordered
--- NOTE | 2025-08-06 16:38 | ECHO_ITS ---
Patient Info Name: Obdulia Wyatt Age: 75 years : 1950 Gender: Female Ht: 62 in Wt: 201 lbs BSA: 2.04 m2 HR: 74 bpm BP: 164 / 67 mmHg Heart Rhythm: Sinus Rhythm Technical Quality: Fair Exam Date: 08/06/2025 11:14 AM Patient Status: I Admit Date: 08/04/2025 Exam Type: CA echo dop color flow w con Complete two-dimensional, color flow and Doppler transthoracic echocardiogram is performed with contrast to opacify the left ventricle and to improve the deliniation of the left ventricle endocardial borders. Staff Referring Physician: Nicky Dupree Senior [employer] Consultant: Jacquelyn Stinson Attending Provider: Nicky Dupree Contrast/Agitated Saline Contrast/Ag. Saline: Definity Amount: 2.00 ml Administered By: Jacquelyn Stinson Existing IV Access: Yes IV Access Condition: patent with no signs of infiltration Summary 1. There is normal biventricular size and systolic function. 2. The aortic valve leaflets are not well visualized. There is no hemodynamically significant aortic stenosis by echocardiographic criteria. There is no aortic regurgitation. 3. There is mitral annular calcification. There is no mitral stenosis. There is trace mitral regurgitation. Left Ventricle The left ventricle is normal in size and systolic function. The left ventricular ejection fraction is visually estimated to be 60-65%. Right Ventricle The right ventricle is normal in size and systolic function. Left Atria The left atrium is normal size. Right Atria The right atrium is normal size. Atrial Septum The atrial septum is not well visualized. Aortic Valve The aortic valve leaflets are not well visualized. There is no hemodynamically significant aortic stenosis by echocardiographic criteria. There is no aortic regurgitation. Pulmonic Valve The pulmonic valve is not well visualized. Mitral Valve There is mitral annular calcification. There is no mitral stenosis. There is trace mitral regurgitation. Tricuspid Valve The tricuspid valve is normal. Pericardium/Pleural Prominent epicardial fat pad. Inferior Vena Cava Normal inferior vena cava with >50% collapse upon inspiration consistent with normal right atrial pressure, 3 mmHg. Aorta The aortic root at the level of the sinus of Valsalva measures 3.0 cm in diameter. Left Ventricular Outflow Tract Name Value Normal LVOT 2D LVOT Diameter 2.0 cm LVOT Doppler LVOT Peak Velocity 107 cm/s LVOT Peak Gradient 5 mmHg LVOT Mean Gradient 2 mmHg LVOT VTI 22 cm LVOT VTI/AV VTI Ratio 0.8 LVOT Stroke Volume 73 ml LVOT CO 6.1 l/min LVOT CI 3.0 l/min/m2 Pulmonic Valve Name Value Normal RVOT Doppler RVOT Peak Velocity 94 cm/s RVOT Peak Gradient 4 mmHg PV Doppler PV Peak Velocity 113 cm/s PV Peak Gradient 5 mmHg Mitral Valve Name Value Normal MV Diastolic Function MV E Peak Velocity 86 cm/s MV A Peak Velocity 115 cm/s MV E/A 0.7 MV Decel Time (PW) 237 ms MV Annular TDI MV E/e' (Septal) 31.5 MV E/e' (Lateral) 17.6 MV E/e' (Average) 24.6 Tricuspid Valve Name Value Normal Estimated PAP/RSVP RA Pressure 3 mmHg <=5 TV Annular TDI TV Lateral Althea s' Velocity 15.6 cm/s >=9.5 Aorta Name Value Normal Ascending Aorta Ao Root Diameter (MM) 2.9 cm Ao Root Diam Index (MM) 1.4 cm/m2 Aortic Valve Name Value Normal AV Doppler AV Peak Velocity 165 cm/s AV Peak Gradient 11 mmHg AV Mean Gradient 6 mmHg AV VTI 27 cm AV Area (Cont Eq VTI) 2.7 cm2 >=3.0 AV Area (Cont Eq Terrell) 2.1 cm2 AV DI (Terrell) 0.65 AV Regurgitation 2D LVOT Area 3.2 cm2 Ventricles Name Value Normal LV Dimensions 2D/MM IVS Diastolic Thickness (2D) 1.1 cm 0.6-1.0 LVID Diastole (2D) 4.6 cm 3.8-5.2 LVIW Diastolic Thickness (2D) 1.1 cm 0.6-0.9 LVID Systole (2D) 3.1 cm 2.2-3.5 LVOT Diameter 2.0 cm LV Mass (2D Cubed) 179.56 g 67.00-162.00 LV Mass Index (2D Cubed) 88 g/m2 43-95 Relative Wall Thickness (2D) 0.46 <=0.42 LV Fractional Shortening/Ejection Fraction 2D/MM LV Fractional Shortening (2D) 32 % 27-45 LV EF (2D Teichholz) 60 % LV Diastolic Volume (4C MOD) 66 ml LV EF (4C MOD) 71 % LV Diastolic Volume (2C MOD) 37 ml LV EF (2C MOD) 55 % LV Diastolic Volume (BP MOD) 51 ml 46-106 LV Diastolic Volume Index (BP MOD) 25 ml/m2 29-61 LV Systolic Volume (BP MOD) 18 ml 14-42 LV Systolic Volume Index (BP MOD) 9 ml/m2 8-24 LV EF (BP MOD) 65 % 54-74 LV Diastolic Length (4C) 7.4 cm LV Systolic Length (4C) 5.8 cm LV Stroke Volume (4C MOD) 47 ml Atria Name Value Normal LA Dimensions LA Dimension (MM) 3.4 cm 2.7-3.8 LA Volume (4C A-L) 53 ml LA Volume (BP A-L) 62 ml RA Dimensions RA Systolic Major [place] Length (4C) 4.1 cm 2.2-2.8 RA Area (4C) 10.0 cm2 <=18.0 Report Signatures
--- NOTE | 2025-08-06 17:16 | P.PNPL_ITS ---
Progress Note: A&P Assessment and Plan (1) Acute respiratory failure with hypoxia: Code(s): J96.01 - Acute respiratory failure with hypoxia Status: Acute Assessment and Plan: She does not use O2 at home; this admission, she required O2 at 3 L/minute to manage her acute hypoxia associated with the huge right pleural effusion. She did not describe any symptoms to suggest a pulmonary infection however she told Dr Pompa that she had yellow sputum. She has not had a fever, sore throat, discolored sputum, she does have a cough and shortness of breath over the last week but this would be expected with a large recurrent right pleural effusion. She has had the same presentation in the past a year ago when a large right effusion was tapped, the last time was July 19, 2024 a year ago, pH greater than 7.5, lymphocytic predominant and high number of RBCs. Sometimes it is difficult to tell the difference between cardiac and Pulmonary causes of shortness of breath. She may have an overlap of cardiac and pulmonary processes occurring. Her CRP is elevated 3.0, suggesting an infectious process. (2) Pleural effusion on right: Code(s): J90 - Pleural effusion, not elsewhere classified Status: Acute Assessment and Plan: Large right pleural effusion in the setting of possible cardiac dysfunction, has preserved EF 65-70% on an echo from Jun 2024. She has an elevated proBNP, 489, had similar episode a year ago. (3) Obesity: Code(s): E66.9 - Obesity, unspecified Status: Acute Assessment and Plan: BMI is 36.9. says that she has gained 30 lb in the last few months. May have obesity hypoventilation. ABG will be helpful. Plan plan: 1) Thoracentesis tomorrow. I will add cytology to be performed on pleural fluid. Her thoracentesis is both diagnostic and therapeutic. She has had pleural effusion tapped from the right side a year ago. Last apixaban was Aug 04 morning. 2) Increased activity. She has become recently immobile, has right hemiplegia and lost function on the left side due to deconditioning, and gained 30 lb in the last several months. I spoke with her about getting evaluated for NICOLASA as an outpatient, and she was not excited about using PAP as she had to use it urgently last year when she was admitted in Jun 2024, similar presentation, ABG showed pH 7.418, pCO2 48, PO2 73.3, HC03 30.4, saturation 94.8% on BiPAP 12/ and 30%. Acute illness requiring BiPAP is less comfortable than a proper setting and well-fit mask. Elmer says that she would like a nasal mask more than a full face mask. ABG today shows a metabolic alkalosis with respiratory compensation, not a primary respiratory acidosis. She does not qualify for NIV 2) Thoracentesis right side; when her apixaban wears off. She has a large right pleural effusion, and this needs to be tapped before further evaluation of lung process can occur. Her last dose of apixaban was yesterday morning, Aug 04; this can be held for couple of days before she gets her thoracentesis. She has had the procedure last year and she understands with this entails. On this thoracentesis I will send cytology. Her pleural fluid last year was consistent with chronic effusion. Lymphocyte predominant 72% and high rbc, 28,000 and wbc 1530 mildly elevated, pH >7.5, not infected in 2023. procalcitonin tomorrow morning; elevated values will support diagnosis of bacterial infection. extended respiratory pathogen panel. 3) She may want to increase her physical activity to maximize her ability to stay at home with Elmer as her assisted living care manager. When he is no longer able to do everything, she will need full NH care. She is not able to live in Assisted Living. Cannot walk, dress, bathroom. 4) Home O2 study before discharge however she is immobile. Will see how she progresses during this admission. Subjective Date/time seen: 08/06/25 17:16 Interval history: 08/05/2025; new; Obdulia Wyatt is a 75-year old woman who has an abnormal CT scan with a large right pleural effusion and compressive atelectasis. She was admitted yesterday Aug 04 about 1 pm, due to shortness of breath and decrease n saturation to 91% on room air, normally 98% on room air. Her saturation picks up better on her left hand. She had an ABG a year ago, had mild CO2 retention, pCO2 48. Her wbc on admission was 8.7 without a left shift, hemoglobin 12.5, hematocrit 39.2, platelets [id number]. Sodium 136, potassium 4.1, chloride 101, carbon dioxide 29, BUN 27, creatinine 1.87. Her CRP was elevated at 3.0, normal is less than 1.0. ProBNP elevated 489, normal is less than 100. She had a thoracentesis on July 19, 2024, a year ago, had lymphocyte predominant effusion with excessive red blood cells, the pH was greater than 7.50. No cytology was sent. She was admitted 08/04/25 from home with a 1 week history of shortness of breath, with a chest CT Showing a large right pleural effusion with compressive atelectasis. She has a small right upper and right lower lobe infiltrate. Radiologist suggesting bronchoscopy however there is significant pleural effusion compressing the lung tissue so bronchoscopy would be of limited value. She took her last Eliquis Aug 04. She has not had a sore throat, sputum production, fever, ear ache, has not been exposed to any sick contacts. She and her stay at home other than going to doctor visits. She was recently at a soccer game for her grandchild outside, not a risky situation as far as communicable diseases. She had a stroke February 2024, is hemiplegic on the right, and lost strength on the left foot over the last several months through being sedentary. She can no longer pivot weight. is not able to lift her as he once was, and on one occasion had to call his daughter to help move her from bed to chair or the other direction. She is depressed, had anti-depressants adjusted recently. Depression is getting better, she likes sweets, does not eat much in general. Elmer says that other than being hemiplegic, her mind is sharp, and she has no cognitive deficit. 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 They have 2 adult children. Sleep: She and her sleep in different rooms. She sleeps in a hospital bed with head elevated at least 45 *in family room, he is in a bedroom. She does not snore, although she wakes often at night. She had venlafaxine was adjusted, and she is sleeping better. Her normal bedtime is 10:00 p.m., she wakes around 6:00 a.m.. She does not have dreams at night. She does not feel particularly refreshed on waking. She urinates during the night. She wears adult diapers, this has been since her stroke. She has not been tested for sleep apnea. PMH: hypertension, CHF with preserved ejection fraction > 70%, February 2024 admitted at 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 08/06; follow up hospital visit; ABG today at 5:27 am showed pH 7.42/ pCO2 50.7 / pO2 71.4 /HCO3 32.8 / Saturation 94.6% on 1 L/min. This shows a primary metabolic alkalosis with secondary respiratory acidosis. This is good news, she does not have hypercapnia, will not qualify for a non-invasive ventilator. She should have a sleep study as an out patient, consider HST. I spoke with the patient and her yesterday about this. Procalcitonin is 0.1 - this indicates no bacterial infection. She is on 3 antibiotics for suspected pneumonia. This negative PCT is convincing that she does not have bacterial pneumonia. Pleural fluid analysis will be helpful when available. She does not use O2 at home, required oxygen this admission due to large right effusion and diaphragm dysfunction. I do not see information about any testing on her diaphragm. DATA * 08/04/2025; chest CT; FINDINGS: No significant coronary calcification is present ([id number]) LUNGS: Large simple appearing right pleural effusion. No tracheomalacia. No bronchiectasis. Minimal emphysematous changes. Minimal pulmonary fibrotic changes. Small right upper and right lower lobe infiltrates. HEART AND PERICARDIUM: Mild cardiomegaly. Small simple appearing pericardial effusion. AORTA: Normal caliber aorta. ADENOPATHY/MEDIASTINUM: None. LIMITED VIEWS OF THE ABDOMEN: Cholelithiasis. Left kidney midpole simple appearing renal cyst 2 x 2 cm. OSSEOUS STRUCTURES: No sclerotic or lytic lesions. No acute rib fractures. Moderate loss of vertebral height and disc height throughout the visualized spine with kyphosis noted. OVERLYING SOFT TISSUES: Unremarkable. THYROID: Nonspecific heterogeneity of the thyroid lobes bilaterally with subcentimeter nodules suspected. IMPRESSION: Large focus of right-sided bronchopneumonia. Bronchoscopy may be of benefit to further evaluate. * ; LE Dopplers ; IMPRESSION: 1. No deep venous thrombosis. * Aug 04, 2025 white blood cell count 8.7, hemoglobin 12.5, hematocrit 39.2%, platelets 255 K, all normal values. Sodium 136, potassium 4.1, chloride 101, carbon dioxide 29, BUN 27, creatinine 1.87. Her CRP was elevated at 3.0, normal is less than 1.0. ProBNP elevated 489, normal is less than 100. * 07/17/2024 echo ; Complete two-dimensional, color flow and Doppler transthoracic echocardiogram is performed. 2. Left ventricular chamber dimension is normal. 3. Left ventricular systolic function is normal, estimated at 65-70%. 4. The left ventricular diastolic function is abnormal. 5. E/e' 23 is elevated. 6. Left atrial chamber dimension is moderately enlarged. 7. There is mild aortic valve sclerosis. 8. The mitral valve has severe calcified posterior annulus. 9. There is trivial pericardial effusion. Review of Systems Review of Systems: All systems reviewed & are unremarkable except as noted in HPI and below Exam Narrative: GEN: Alert, oriented, not in distress. She is able to answer questions well. HEENT: pupils are equal, EOMI, symmetrical face; oral membranes moist, Mallampati IV airway NECK: Trachea is midline CHEST: Equal air entry, symmetric excursion, decreased breath sounds on the right side 2/3 up the posterior chest wall. The left side is clear. CV: Regular S1S2 no m/g/r ABD : (+) bowel sounds Extremities : no clubbing, cyanosis, or edema. She has atrophy in the right foot. no calf tenderness. PSYCH: normal thought and speech. She is not strong, cannot assist in leaning forward so I can listen to her posterior chest. Objective Data Vital Signs Vital Signs: Vital Signs - 24 hr 08/05/25 20:00 08/05/25 20:00 08/05/25 20:44 Temperature 36.9 C Pulse Rate 73 80 80 Respiratory Rate 21 H 21 H Blood Pressure 171/64 H Pulse Oximetry 96 96 Oxygen Delivery Room Air Oxygen Flow Rate 08/06/25 00:00 08/06/25 00:00 08/06/25 00:29 Temperature 37.1 C Pulse Rate 66 74 74 Respiratory Rate 20 20 Blood Pressure 155/66 H Pulse Oximetry 96 96 Oxygen Delivery Room Air Oxygen Flow Rate 08/06/25 04:00 08/06/25 04:00 08/06/25 05:29 Temperature 36.9 C Pulse Rate 74 74 74 Respiratory Rate 20 20 Blood Pressure 164/67 H Pulse Oximetry 96 96 Oxygen Delivery Room Air Oxygen Flow Rate 08/06/25 06:00 08/06/25 08:00 08/06/25 08:00 Temperature 36.9 C Pulse Rate 74 79 92 Respiratory Rate 18 18 Blood Pressure 163/67 H Pulse Oximetry 98 98 Oxygen Delivery Nasal Cannula Oxygen Flow Rate 1 08/06/25 08:00 08/06/25 09:02 08/06/25 10:00 Temperature Pulse Rate 92 75 Respiratory Rate Blood Pressure Pulse Oximetry Oxygen Delivery Nasal Cannula Oxygen Flow Rate 1 08/06/25 12:00 08/06/25 12:00 Temperature 36.6 C Pulse Rate 80 80 Respiratory Rate 18 Blood Pressure 161/67 H Pulse Oximetry 93 Oxygen Delivery Oxygen Flow Rate Intake/Output Intake/Output: Intake & Output 08/03/25 08/04/25 08/05/25 08/06/25 23:59 23:59 23:59 23:59 Intake Total 50 1950 560 Output Total 1400 1100 Balance 50 550 -540 Meds/Results Medications: Active Medications Generic Name Dose Route Start Last Admin Trade Name Freq PRN Reason Stop Dose Admin Acetaminophen 650 mg 08/04/25 22:11 08/04/25 23:41 Acetaminophen Elixir 325 Mg/10.15 Ml Udc PO 650 mg Q4H PRN Administration Mild Pain (1-3) or Fever Amlodipine Besylate 10 mg 08/05/25 09:00 08/06/25 07:38 Amlodipine Besylate 10 Mg Tablet PO 10 mg DAILY LITO Administration Dextrose 12.5 gm 08/04/25 16:37 Dextrose 50% 25 Gm/50 Ml Syringe IV PUSH PRN PRN Hypoglycemia Protocol Enoxaparin Sodium 100 mg 08/05/25 17:00 08/05/25 16:38 Enoxaparin 100 Mg/Ml Syringe SUB-Q 100 mg DAILY@1700 L[facility]O Administration Furosemide 40 mg 08/05/25 09:00 08/06/25 07:38 Furosemide Inj 40 Mg/4 Ml Vial IV PUSH 40 mg BID LITO Administration Glucagon 1 mg 08/04/25 16:37 Glucagon For Inj 1 Mg Vial IM PRN PRN Hypoglycemia Protocol Glucose 15 gm 08/04/25 16:37 Glucose Oral Gel 15 Gm Of Glucse In 37.5 Gm Tube PO PRN PRN Hypoglycemia Protocol Guaifenesin 1,200 mg 08/04/25 21:00 08/06/25 07:37 Guaifenesin 12 Hr 600 Mg Tabcr PO 1,200 mg Q12HR LITO Administration Guaifenesin 200 mg 08/04/25 22:08 Guaifenesin 200 Mg/10 Ml Udc PO Q4H PRN Cough Ceftriaxone Sodium 1 gm/ 50 mls @ 100 mls/hr 08/05/25 17:00 08/05/25 16:37 Sodium Chloride IVPB 100 mls/hr Q24H L[facility]O Administration Azithromycin 500 mg/ Sodium 250 mls @ 250 mls/hr 08/05/25 17:00 08/05/25 17:35 Chloride IVPB 08/08/25 17:59 Infused Q24H [facility]O Infusion Dextrose 1,000 mls @ 100 mls/hr 08/04/25 16:37 Dextrose 5% 1,000 Ml IVPB PRN PRN Hypoglycemia Protocol Metronidazole 500 mg in 100 mls @ 100 mls/hr 08/05/25 14:00 08/06/25 13:54 Flagyl 500 Mg/Iso Soln 100 Ml IVPB 100 mls/hr Q8HR LITO Administration Insulin Aspart 2 - 5 units 08/04/25 17:00 08/06/25 12:06 Insulin Aspart (*Bkc) 100 Units/Ml SUB-Q Not Given TIDWM [facility] Protocol Insulin Glargine 14 units 08/04/25 21:00 08/05/25 21:20 Insulin Glargine (*Bkc) 100 Units/Ml 0.15 units/kg (14 units) Not Given SUB-Q HS [facility] Methimazole 10 mg 08/05/25 09:00 08/06/25 07:38 Methimazole 10 Mg Tab PO 10 mg DAILY LITO Administration Methocarbamol 500 mg 08/04/25 20:32 Methocarbamol 500 Mg Tablet PO QID PRN Spasms Mirtazapine 7.5 mg 08/04/25 23:05 08/05/25 21:20 Mirtazapine 7.5 Mg Tablet PO 7.5 mg HS [facility]O Administration Multivitamins/Minerals 1 tablet 08/05/25 09:00 08/06/25 07:37 Opti-Gen Tab PO 1 tablet BID [facility]O Administration Polyethylene Glycol 17 gm 08/05/25 09:00 08/06/25 07:37 Polyethylene Glycol 3350 17 Gm Powd.Pack PO 17 gm QAM [facility] Administration Polyethylene Glycol 17 gm 08/06/25 12:52 Polyethylene Glycol 3350 17 Gm Powd.Pack PO QAM PRN Constipation Senna/Docusate Sodium 1 tab 08/04/25 21:00 08/05/25 21:19 Senna/Docusate Sodium Tablet PO 1 tab HS [facility]O Administration Terazosin HCl 4 mg 08/04/25 23:05 08/05/25 21:20 Terazosin Hcl 1 Mg Capsule PO 4 mg HS [facility]O Administration Venlafaxine HCl 75 mg 08/05/25 09:00 08/06/25 07:38 Venlafaxine Hcl 75 Mg Tablet PO 75 mg DAILY LITO Administration Radiology Results: ITS Impressions Chest X-Ray 08/04/25 15:46 Impression: CHF. Superimposed right lower lobe pneumonia Chest CT 08/04/25 16:15 IMPRESSION: Large focus of right-sided bronchopneumonia. Bronchoscopy may be of benefit to further evaluate. Venous Doppler Study 08/05/25 10:23 IMPRESSION: 1. No deep venous thrombosis. Labs Labs: Laboratory Results - last 24 hr 08/06/25 08/06/25 08/06/25 04:02 05:27 07:18 Puncture Site Left brachial ABG pH 7.429 ABG pCO2 50.7 H ABG pO2 71.4 L ABG PO2/FiO2 Ratio 2.98 ABG HCO3 32.8 H ABG O2 Saturation 94.6 L ABG O2 Content 18.2 ABG Base Excess 7.1 A-a Gradient 39.4 Oxyhemoglobin 93.6 Carboxyhemoglobin 0.9 Methemoglobin 0.1 Reduced Hemoglobin 5.4 H Total Hemoglobin 13.8 O2 Delivery Device Nasal cannula O2 Liters/Min 1.0 FiO2 24 Glucose POC Capillary Glucose 131 H Lactate Dehydrogenase Total Protein Triglycerides Procalcitonin 0.1 negative 08/06/25 08/06/25 08/06/25 11:40 11:55 16:36 Glucose 159 H POC Capillary Glucose 149 H 179 H Lactate Dehydrogenase 189 Total Protein 7.8 Triglycerides 122 Procalcitonin
[2025-08-06] MEDS: cefTRIAXone 1 GM in SODIUM CHLORIDE 0.9% IV 50 ML 100 ML IVPB (17:21)
[2025-08-06] MEDS: AZITHROMYCIN IV 500 MG in SODIUM CHLORIDE 0.9% IV 250 ML IVPB (17:38)
--- NOTE | 2025-08-06 19:20 | CY_PTH ---
PATIENT: Obdulia Wyatt LOC: [id number] U#:[id number] AGE/SX: 75/F ROOM: 342 RE08/04/[address]: Jose Powers MD : 1950 BED: 01 DIS: 08/08/2025 SPEC #: [id number] RECD: 08/07/25 10:55 STATUS: AURELIA REChetan #: [id number] LINDA: 08/06/25 19:[address]: Karla Granda DEPT: [facility] Cytology RECD BY: Sylvie Saldivar ENTERED: 08/07/25 10:55 SP TYPE: Cytology OTHR DR: Kayla Wayne, DO Nicky Velarde MD Tissues: A - Pleural Fluid Procedures: Hematoxylin and Eosin Stain Cell Block [id number] CHASE-EP4 Calretinin Cytopathology Cytospin
[2025-08-06] MEDS: TERAZOSIN HCL 1 MG CAPSULE 4 MG PO (21:34)
[2025-08-06] MEDS: MIRTAZAPINE 7.5 MG TABLET PO (21:34)
[2025-08-06] MEDS: SENNA/DOCUSATE SODIUM TABLET 1 TAB PO (21:35)
[2025-08-06] MEDS: INSULIN GLARGINE (*BKC) 100 UNITS/ML 14 UNITS SUB-Q (21:35)
[2025-08-07 00:21] VITALS: BP 125/73; PULSE 79; RESP 17; TEMP 36.3; O2SAT 90
[2025-08-07 03:51] VITALS: BP 151/72; PULSE 84; RESP 17; TEMP 36.4; O2SAT 96
[2025-08-07 04:06] VITALS: BP 151/72; PULSE 84; RESP 17; TEMP 36.4; O2SAT 96
[2025-08-07] MEDS: metroNIDAZOLE 500 MG/ISO 100ML 500 MG/100 ML BAG 100 MG IVPB ×3 (05:12→22:16)
[2025-08-07 05:32] LABS: Hematocrit 39.6 % (37.0-47.0); Hemoglobin 12.6 g/dL (12.0-15.0); Immature Granulocyte Percent A 0.3 % (0-0.5); Lymphocytes Absolute Auto 1.42 K/mm3 (0.9-3.2); Mean Corpuscular HGB Conc 31.8 g/dl (32-36); Mean Corpuscular Hemoglobin 29.1 pg (26-34); Mean Corpuscular Volume 91.5 fl (80-100); Nucleated Red Blood Cells Absolute Auto 0.000 K/mm3 (0.0-0.012); Nucleated Red Blood Cells Perc 0.0 % (0.0-0.2); Platelet Count Result 283 k/mm3 (150-375); Red Blood Count 4.33 M/mm3 (4.2-5.4); White Blood Count 8.8 K/mm3 (4.5-10.0)
[2025-08-07 05:44] LABS: INR 1.1; Prothrombin Time 14.3 Seconds (11.1-14.7)
[2025-08-07 05:45] LABS: Partial Thromboplastin Time 30.8 Seconds (22.3-36.8)
[2025-08-07 05:58] LABS: Alanine Aminotransferase 12 U/L (6-35); Albumin Level 3.6 g/dL (3.5-5.1); Alkaline Phosphatase 84 U/L (38-126); Anion Gap 7 mmol/L (4-12); Aspartate Amino Transferase 33 U/L (14-36); Bilirubin,Total 0.2 mg/dL (0.2-1.3); Blood Urea Nitrogen 32 mg/dL (7-17); Calcium 8.7 mg/dL (8.4-10.2); Carbon Dioxide 32 mmol/L (22-30); Chloride 96 mmol/L (98-107); Estimated CRCL calculation 22 ml/min; Estimated Glomerular Filt Rate 23; Glucose 144 mg/dL (65-110); Magnesium 2.4 mg/dL (1.6-2.3); Sodium 135 mmol/L (137-145); Total Protein 7.1 g/dL (6.3-8.2)
[2025-08-07 06:05] LABS: Potassium 3.3 mmol/L (3.4-5.0)
[2025-08-07 06:25] LABS: Thyroid Stimulating Hormone Reflex 1.930 uIU/mL (0.465-4.68); Total Triiodothyronine (T3) 0.80 NG/ML (0.82-1.58)
[2025-08-07 08:00] VITALS: O2SAT 93
--- NOTE | 2025-08-07 10:52 | PCPTNOTE ---
The patient treatment was not able to be completed at this time. RN states patient had thoracentesis done this morning and is now c/o SOB and anxious. RN advised to hold PT at this time. Will plan to continue treatment per plan of care.
[2025-08-07] MEDS: MORPHINE SULFATE (*CRX) 4 MG/ML INJ 1 MG IV PUSH (10:58)
[2025-08-07 11:11] LABS: Appearance Pleural Fluid Cloudy (Clear); Color Pleural Fluid Red (Colorless); Lymphocytes Pleural Fluid 43 %; Macrophages Pleural Fluid 34 %; Mesothelial Cells Pleural Flui 9 %; Monocytes Pleural Fluid 13 %; Neutrophils Pleural Fluid 1 % (0-25); Nucleated Cell Pleural Fluid 1133 /uL (0-1000)
[2025-08-07] MEDS: guaiFENesin 12 HR 600 MG TABCR 1200 MG PO (12:57)
[2025-08-07] MEDS: FUROSEMIDE INJ 40 MG/4 ML VIAL IV PUSH ×2 (12:57→17:01)
[2025-08-07] MEDS: VENLAFAXINE HCL 75 MG TABLET PO (12:58)
[2025-08-07] MEDS: OPTI-GEN TAB 1 TABLET PO ×2 (12:59→17:01)
[2025-08-07 14:00] VITALS: BP 138/72; PULSE 95; RESP 16; TEMP 37.3; O2SAT 90
--- NOTE | 2025-08-07 14:14 | P.PNIM_ITS ---
Progress Note: A&P Assessment and Plan (1) Pleural effusion on right: Code(s): J90 - Pleural effusion, not elsewhere classified Status: Acute Assessment and Plan: Patient underwent a thoracentesis on 08/07 Will restart Eliquis (2) Acute CHF: Code(s): I50.9 - Heart failure, unspecified Status: Acute Assessment and Plan: No Pulm edema No diurectics for now monitor (3) Pneumonia: Code(s): J18.9 - Pneumonia, unspecified organism Status: Acute Assessment and Plan: CT Chest showed large right bronchopneumonia with large right pleural effusion F/u cultures Rocephin, Flagyl and Azithromycin Underwent thoracentesis Pulmonology following (4) Acute respiratory failure with hypoxia: Code(s): J96.01 - Acute respiratory failure with hypoxia Status: Acute Assessment and Plan: Likely secondary to pneumonia and large pleural effusion Continue abx as above resolved, now on room air (5) Type 2 diabetes mellitus: Code(s): E11.9 - Type 2 diabetes mellitus without complications Status: Acute Assessment and Plan: Felicita Cooper and SSI will bring in her food from home (6) Chronic renal insufficiency, stage III (moderate): Code(s): N18.3 - Chronic kidney disease, stage 3 (moderate) Status: Acute Assessment and Plan: Will monitor kidney function while diuresing (7) Constipation: Code(s): K59.00 - Constipation, unspecified Status: Acute Assessment and Plan: Per patient has very hard stools about every 4 days Senna MiraLax (8) Appetite disorder: Code(s): F50.9 - Eating disorder, unspecified Status: Acute Assessment and Plan: will bring in food for the patient Regular diet (9) Calf pain: Code(s): M79.669 - Pain in unspecified lower leg Status: Acute Assessment and Plan: Venous Doppler negative Robaxin Tylenol Plan DVT prophylaxis Chiqui Bauer on hold for thoracentesis Subjective Date/time seen: 08/07/25 14:14 Interval history: Patient underwent a thoracentesis. Patient complained of mild chest pain after the thoracentesis and repeat x-ray shows no significant finding. Patient has a history of CVA with the right-sided residual weakness. Patient also has a history of saddle embolism last year when she was admitted in the hospital due to CVA. Review of Systems Review of Systems: 12 systems were reviewed and are negativ e except for as per HPI. Exam Narrative: General: well appearing, appears stated age. HEENT: normocephalic, atraumatic. Mucous membranes moist. EOMI, PERRLA, bilateral sclera anicteric, no conjunctival injection. Neck supple without JVD, lymphadenopathy, or bruit. Respiratory: Unable to talk in full sentences due to shortness of breath, expiratory wheezes Cardiovascular: Regular rate and rhythm, normal S1-S2 upon ascultation. No murmurs, rubs, or clicks. PMI is nondisplaced, capillary refill less than 3 second. Abdomen: Soft, round, no pulsatile masses, nondistended and nontender. No rebound, no guarding. No CVA tenderness, no hepatosplenomegaly. Bowel sounds present to all four quadrants. No high pitch or tinkling sounds, resonant to percussion. Extremities: No cyanosis, clubbing, or edema present. Pulses are palpable 2/2. Right upper extremity weak, left strong, right lower extremity flaccid, left strong Neuro: Alert and orientated x 4. PERRLA. Cranial nerves 2-12 intact without focal deficit. Skin: Warm, dry, and intact, without rash, erythema, or lesion. Psych: pleasant, cooperative, normal speech, normal affect, no hallucinations, no dysarthia 3 L nasal cannula Objective Data Vital Signs Vital Signs: Vital Signs - 24 hr 08/06/25 17:33 08/06/25 19:18 08/07/25 00:21 Temperature 99 F 97.9 F 97.3 F L Pulse Rate 89 95 79 Respiratory Rate 18 17 17 Blood Pressure 168/69 H 167/76 H 125/73 Pulse Oximetry 92 92 90 08/07/25 03:51 08/07/25 04:06 Temperature 97.5 F L 97.5 F L Pulse Rate 84 84 Respiratory Rate 17 17 Blood Pressure 151/72 H 151/72 H Pulse Oximetry 96 96 Intake/Output Intake/Output: Intake & Output 08/04/25 08/05/25 08/06/25 08/07/25 23:59 23:59 23:59 23:59 Intake Total 50 2000 1000 820 Output Total 1400 1350 1750 Balance 50 600 -350 -930 Meds/Results Medications: Active Medications Generic Name Dose Route Start Last Admin Trade Name Freq PRN Reason Stop Dose Admin Acetaminophen 650 mg 08/04/25 22:11 08/04/25 23:41 Acetaminophen Elixir 325 Mg/10.15 Ml Udc PO 650 mg Q4H PRN Administration Mild Pain (1-3) or Fever Amlodipine Besylate 10 mg 08/05/25 09:00 08/07/25 12:58 Amlodipine Besylate 10 Mg Tablet PO 10 mg DAILY [facility]O Administration Dextrose 12.5 gm 08/04/25 16:37 Dextrose 50% 25 Gm/50 Ml Syringe IV PUSH PRN PRN Hypoglycemia Protocol Enoxaparin Sodium 100 mg 08/05/25 17:00 08/06/25 18:42 Enoxaparin 100 Mg/Ml Syringe SUB-Q Not Given DAILY@1700 [facility]O Furosemide 40 mg 08/05/25 09:00 08/07/25 12:57 Furosemide Inj 40 Mg/4 Ml Vial IV PUSH 40 mg BID [facility]O Administration Glucagon 1 mg 08/04/25 16:37 Glucagon For Inj 1 Mg Vial IM PRN PRN Hypoglycemia Protocol Glucose 15 gm 08/04/25 16:37 Glucose Oral Gel 15 Gm Of Glucse In 37.5 Gm Tube PO PRN PRN Hypoglycemia Protocol Guaifenesin 1,200 mg 08/04/25 21:00 08/07/25 12:57 Guaifenesin 12 Hr 600 Mg Tabcr PO 1,200 mg Q12HR [facility]O Administration Guaifenesin 200 mg 08/04/25 22:08 Guaifenesin 200 Mg/10 Ml Udc PO Q4H PRN Cough Ceftriaxone Sodium 1 gm/ 50 mls @ 100 mls/hr 08/05/25 17:00 08/06/25 17:21 Sodium Chloride IVPB 100 mls/hr Q24H [facility] Administration Azithromycin 500 mg/ Sodium 250 mls @ 250 mls/hr 08/05/25 17:00 08/06/25 17:38 Chloride IVPB 08/08/25 17:59 250 mls/hr Q24H [facility] Administration Dextrose 1,000 mls @ 100 mls/hr 08/04/25 16:37 Dextrose 5% 1,000 Ml IVPB PRN PRN Hypoglycemia Protocol Metronidazole 500 mg in 100 mls @ 100 mls/hr 08/05/25 14:00 08/07/25 06:12 Flagyl 500 Mg/Iso Soln 100 Ml IVPB Infused Q8HR [facility] Infusion Insulin Aspart 2 - 5 units 08/04/25 17:00 08/07/25 13:03 Insulin Aspart (*Bkc) 100 Units/Ml SUB-Q Not Given [facility]ID[facility] Protocol Insulin Glargine 14 units 08/04/25 21:00 08/06/25 21:35 Insulin Glargine (*Bkc) 100 Units/Ml 0.15 units/kg (14 units) 14 units SUB-Q Administration HS [facility]O Methimazole 10 mg 08/05/25 09:00 08/07/25 12:58 Methimazole 10 Mg Tab PO 10 mg DAILY [facility] Administration Methocarbamol 500 mg 08/04/25 20:32 Methocarbamol 500 Mg Tablet PO QID PRN Spasms Mirtazapine 7.5 mg 08/04/25 23:05 08/06/25 21:34 Mirtazapine 7.5 Mg Tablet PO 7.5 mg HS [facility]O Administration Multivitamins/Minerals 1 tablet 08/05/25 09:00 08/07/25 12:59 Opti-Gen Tab PO 1 tablet BID [facility] Administration Polyethylene Glycol 17 gm 08/05/25 09:00 08/07/25 12:56 Polyethylene Glycol 3350 17 Gm Powd.Pack PO 17 gm QAM [facility] Administration Polyethylene Glycol 17 gm 08/06/25 12:52 Polyethylene Glycol 3350 17 Gm Powd.Pack PO QAM PRN Constipation Senna/Docusate Sodium 1 tab 08/04/25 21:00 08/06/25 21:35 Senna/Docusate Sodium Tablet PO 1 tab HS [facility]O Administration Terazosin HCl 4 mg 08/04/25 23:05 08/06/25 21:34 Terazosin Hcl 1 Mg Capsule PO 4 mg HS [facility] Administration Venlafaxine HCl 75 mg 08/05/25 09:00 08/07/25 12:58 Venlafaxine Hcl 75 Mg Tablet PO 75 mg DAILY [facility]O Administration Radiology Results: ITS Impressions Chest CT 08/04/25 16:15 IMPRESSION: Large focus of right-sided bronchopneumonia. Bronchoscopy may be of benefit to further evaluate. Venous Doppler Study 08/05/25 10:23 IMPRESSION: 1. No deep venous thrombosis. Thoracentesis Ultrasound 08/07/25 10:22 IMPRESSION: 1. Successful ultrasound-guided thoracentesis yielding 1100 mL of brendon-colored fluid. Chest X-Ray 08/07/25 11:18 Impression: 1: Cardiomegaly with pulmonary edema. 2: Small right pleural effusion. Labs Labs: Laboratory Results - last 24 hr 08/06/25 08/06/25 08/07/25 16:36 20:29 05:02 WBC 8.8 RBC 4.33 Hgb 12.6 Hct 39.6 MCV 91.5 MCH 29.1 MCHC 31.8 L RDW 13.2 Plt Count 283 MPV 10.0 Immature Gran % (Auto) 0.3 Neut % (Auto) 71.2 Lymph % (Auto) 16.2 L [place] % (Auto) 9.2 H Eos % (Auto) 2.5 Baso % (Auto) 0.6 Lymph # (Auto) 1.42 [place] # (Auto) 0.8 H Eos # (Auto) 0.2 Baso # (Auto) 0.1 Abs Immat Gran (auto) 0.03 Absolute Neuts (auto) 6.3 Absolute Nucleated RBC 0.000 Nucleated RBC % 0.0 PT 14.3 INR 1.1 APTT 30.8 Sodium 135 L Potassium 3.3 L Chloride 96 L Carbon Dioxide 32 H Anion Gap 7 BUN 32 H Creatinine 2.10 H Estim Creat Clear Calc 22 Estimated GFR 23 L Glucose 144 H POC Capillary Glucose 179 H 238 H Calcium 8.7 Magnesium 2.4 H Total Bilirubin 0.2 AST 33 ALT 12 Alkaline Phosphatase 84 Lactate Dehydrogenase 132 Total Protein 7.1 Albumin 3.6 TSH (Reflex) 1.930 Thyroxine (T4) 5.81 Total T3 0.80 L Pleural Fluid Source Pleural Color Pleural Appearance Pleural pH Pleural RBC Pleural Nuc Cells Pleural Neutrophils Pleural Lymphocytes Pleural Monocytes Pleural Macrophages Pleural Mesothelial Pleural Total Protein 08/07/25 08/07/25 08/07/25 08:12 09:38 11:39 WBC RBC Hgb Hct MCV MCH MCHC RDW Plt Count MPV Immature Gran % (Auto) Neut % (Auto) Lymph % (Auto) [place] % (Auto) Eos % (Auto) Baso % (Auto) Lymph # (Auto) [place] # (Auto) Eos # (Auto) Baso # (Auto) Abs Immat Gran (auto) Absolute Neuts (auto) Absolute Nucleated RBC Nucleated RBC % PT INR APTT Sodium Potassium Chloride Carbon Dioxide Anion Gap BUN Creatinine Estim Creat Clear Calc Estimated GFR Glucose POC Capillary Glucose 154 H 141 H Calcium Magnesium Total Bilirubin AST ALT Alkaline Phosphatase Lactate Dehydrogenase Total Protein Albumin TSH (Reflex) Thyroxine (T4) Total T3 Pleural Fluid Source Pleural fluid Pleural Color Red Pleural Appearance Cloudy Pleural pH > 0.000 L Pleural RBC 14750 H Pleural Nuc Cells 1133 H Pleural Neutrophils 1 Pleural Lymphocytes 43 Pleural Monocytes 13 Pleural Macrophages 34 Pleural Mesothelial 9 Pleural Total Protein Cancelled Quality VTE Prophylaxis VTE prophylaxis: mechanical ordered and pharmacologic ordered Hospitalist MIPS Advance Care Plan I have confirmed that the patient's Advanced Care Plan is present, code status is documented, or surrogate decision maker is listed in patient medical record.: Yes Medication Reconciliation I have utilized all available resources to obtain, update and review the patients current medications (includes all prescriptions, OTC, herbals, cannabis, and nutritional supplements).: Yes
[2025-08-07] MEDS: APIXABAN 5 MG TABLET PO (17:01)
[2025-08-07] MEDS: AZITHROMYCIN IV 500 MG in SODIUM CHLORIDE 0.9% IV 250 ML IVPB (17:02)
[2025-08-07] MEDS: cefTRIAXone 1 GM in SODIUM CHLORIDE 0.9% IV 50 ML 100 ML IVPB (17:02)
--- NOTE | 2025-08-07 18:15 | P.PNPL_ITS ---
Progress Note: A&P Assessment and Plan (1) Acute respiratory failure with hypoxia: Code(s): J96.01 - Acute respiratory failure with hypoxia Status: Acute Assessment and Plan: She does not use O2 at home; this admission, she required O2 at 3 L/minute to manage her acute hypoxia associated with the huge right pleural effusion. She did not describe any symptoms to suggest a pulmonary infection however she told Dr Pompa that she had yellow sputum. She has not had a fever, sore throat, discolored sputum, she does have a cough and shortness of breath over the last week but this would be expected with a large recurrent right pleural effusion. She has had the same presentation in the past a year ago when a large right effusion was tapped, the last time was July 19, 2024 a year ago, pH greater than 7.5, lymphocytic predominant and high number of RBCs. Sometimes it is difficult to tell the difference between cardiac and Pulmonary causes of shortness of breath. She may have an overlap of cardiac and pulmonary processes occurring. Her CRP is elevated 3.0, suggesting an infectious process. (2) Pleural effusion on right: Code(s): J90 - Pleural effusion, not elsewhere classified Status: Acute Assessment and Plan: Large right pleural effusion in the setting of possible cardiac dysfunction, has preserved EF 65-70% on an echo from Jun 2024. She has an elevated proBNP, 489, had similar episode a year ago. successful thoracentesis today 1100 mils removed, values similar to last year, 2200 rbc's, 1133 wbc's without lymphocyte predominance, mixed lymphocyte and pulmonary macrophages. This is not a pathogenic profile. (3) Obesity: Code(s): E66.9 - Obesity, unspecified Status: Acute Assessment and Plan: BMI is 36.9. says that she has gained 30 lb in the last few months. Plan plan: 1) Reviewed results of thoracentesis; Finding similar to last year, mildly elevated white blood cell count 1133, elevated RBC 22,000, last year was 28,000. Cytology was collected. The LDH and protein are pending. The pH was inadvertently reported as greater than 0, error.tomorrow. She restarted apixaban. 2) Increased activity. She has become recently immobile, has right hemiplegia and lost function on the left side due to deconditioning, and gained 30 lb in the last several months. 3) ABG shows metabolic alkalosis with respiratory compensation, not primary respiratory acidosis. Does not qualify for NIV. She would need real sleep testing as an outpatient may be home sleep test to start with. Getting into the sleep lab would be a big challenge because she is not mobile at all. 4) Extended respiratory pathogen panel ordered, no result, not sure this was sent but she does not appear to be infected. Reports of pneumonia in her chart are greatly over rated. She has recurrent right pleural effusion that is rather chronic, she has diastolic dysfunction and renal impairment. She looks like she has cardiorenal syndrome and with her creatinine rising she is not really a good candidate for diuretics currently. She has had CKD stage 3 or 3 for quite a while according to her . 5) She is non ambulatory, cannot perform a home O2 study. expect discharge tomorrow. Subjective Date/time seen: 08/07/25 18:15 Interval history: 08/05/2025; new; Obdulia Wyatt is a 75-year old woman who has an abnormal CT s can with a large right pleural effusion and compressive atelectasis. She was admitted yesterday Aug 04 about 1 pm, due to shortness of breath and decrease n saturation to 91% on room air, normally 98% on room air. Her saturation picks up better on her left hand. She had an ABG a year ago, had mild CO2 retention, pCO2 48. Her wbc on admission was 8.7 without a left shift, hemoglobin 12.5, hematocrit 39.2, platelets [id number]. Sodium 136, potassium 4.1, chloride 101, carbon dioxide 29, BUN 27, creatinine 1.87. Her CRP was elevated at 3.0, normal is less than 1.0. ProBNP elevated 489, normal is less than 100. She had a thoracentesis on July 19, 2024, a year ago, had lymphocyte predominant effusion with excessive red blood cells, the pH was greater than 7.50. No cytology was sent. She was admitted 08/04/25 from home with a 1 week history of shortness of breath, with a chest CT Showing a large right pleural effusion with compressive atelectasis. She has a small right upper and right lower lobe infiltrate. Radiologist suggesting bronchoscopy however there is significant pleural effusion compressing the lung tissue so bronchoscopy would be of limited value. She took her last Eliquis Aug 04. She has not had a sore throat, sputum production, fever, ear ache, has not been exposed to any sick contacts. She and her stay at home other than going to doctor visits. She was recently at a soccer game for her grandchild outside, not a risky situation as far as communicable diseases. She had a stroke February 2024, is hemiplegic on the right, and lost strength on the left foot over the last several months through being sedentary. She can no longer pivot weight. is not able to lift her as he once was, and on one occasion had to call his daughter to help move her from bed to chair or the other direction. She is depressed, had anti-depressants adjusted recently. Depression is getting better, she likes sweets, does not eat much in general. Elmer says that other than being hemiplegic, her mind is sharp, and she has no cognitive deficit. 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 They have 2 adult children. Sleep: She and her sleep in different rooms. She sleeps in a hospital bed with head elevated at least 45 *in family room, he is in a bedroom. She does not snore, although she wakes often at night. She had venlafaxine was adjusted, and she is sleeping better. Her normal bedtime is 10:00 p.m., she wakes around 6:00 a.m.. She does not have dreams at night. She does not feel particularly refreshed on waking. She urinates during the night. She wears adult diapers, this has been since her stroke. She has not been tested for sleep apnea. 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 08/06; follow up hospital visit; ABG today at 5:27 am showed pH 7.42/ pCO2 50.7 / pO2 71.4 /HCO3 32.8 / Saturation 94.6% on 1 L/min. This shows a primary metabolic alkalosis with secondary respiratory acidosis. This is good news, she does not have hypercapnia, will not qualify for a non-invasive ventilator. She should have a sleep study as an out patient, consider HST. I spoke with the patient and her yesterday about this. Procalcitonin is 0.1 - this indicates no bacterial infection. She is on 3 antibiotics for suspected pneumonia. This negative PCT is convincing that she does not have bacterial pneumonia. Pleural fluid analysis will be helpful when available. She does not use O2 at home, required oxygen this admission due to large right effusion and diaphragm dysfunction. I do not see information about any testing on her diaphragm. 08/07; Had thoracentesis today, 1100 ml removed; CXR 11:21 showed no ptx afterwards; Impression: 1: Cardiomegaly with pulmonary edema. 2: Small right pleural effusion. Pleural fluid shows rbc 22,000, high and wbc 1133, minimally elevated. SHe has 43% lymphocytes, 13% monocytes, 34% macrophages. The pH was not reported. Saturation is 90-96% on room air. CXR post thoracentesis is better. She has an increase in her creatinine now 2.2 and has had stage 3 CKD for a while. DATA * 08/04/2025; chest CT; FINDINGS: LUNGS: Large simple appearing right pleural effusion. No tracheomalacia. No bronchiectasis. Minimal emphysematous changes. Minimal pulmonary fibrotic changes. Small right upper and right lower lobe infiltrates. HEART AND PERICARDIUM: Mild cardiomegaly. Small simple appearing pericardial effusion. IMPRESSION: Large focus of right-sided bronchopneumonia. Bronchoscopy may be of benefit to further evaluate. * ; ACE Dopplers ; IMPRESSION: 1. No deep venous thrombosis. * Aug 04, 2025 white blood cell count 8.7, hemoglobin 12.5, hematocrit 39.2%, platelets 255 K, all normal values. Sodium 136, potassium 4.1, chloride 101, carbon dioxide 29, BUN 27, creatinine 1.87. Her CRP was elevated at 3.0, normal is less than 1.0. ProBNP elevated 489, normal is less than 100. * 07/17/2024 echo ; Complete two-dimensional, color flow and Doppler transthoracic echocardiogram is performed. 2. Left ventricular chamber dimension is normal. 3. Left ventricular systolic function is normal, estimated at 65-70%. 4. The left ventricular diastolic function is abnormal. 5. E/e' 23 is elevated. 6. Left atrial chamber dimension is moderately enlarged. 7. There is mild aortic valve sclerosis. 8. The mitral valve has severe calcified posterior annulus. 9. There is trivial pericardial effusion. Review of Systems 2 Review of Systems: All systems reviewed & are unremarkable except as noted in HPI and below Exam 2 Narrative: GEN: Alert, oriented, not in distress. She is able to answer questions well. c/o pain in the right posterior chest where the thoracentesis took place. NECK: Trachea is midline CHEST: Equal air entry, symmetric excursion, MORE air movement in the right lung upper area, left side is the same, good air movement and clear. CV: Regular S1S2 no m/g/r ABD : (+) bowel sounds Extremities : no clubbing, cyanosis, or edema. She has atrophy in the right foot. no calf tenderness. PSYCH: normal thought and speech. Objective Data Vital Signs Vital Signs: Vital Signs - 24 hr 08/06/25 19:18 08/07/25 00:21 08/07/25 03:51 Temperature 36.6 C 36.3 C L 36.4 C L Pulse Rate 95 79 84 Respiratory Rate 17 17 17 Blood Pressure 167/76 H 125/73 151/72 H Pulse Oximetry 92 90 96 08/07/25 04:06 08/07/25 14:00 Temperature 36.4 C L 37.3 C Pulse Rate 84 95 Respiratory Rate 17 16 Blood Pressure 151/72 H 138/72 Pulse Oximetry 96 90 Intake/Output Intake/Output: Intake & Output 08/04/25 08/05/25 08/06/25 08/07/25 23:59 23:59 23:59 23:59 Intake Total 50 2000 1300 1500 Output Total 1400 1350 2250 Balance 50 600 -50 -750 Meds/Results Medications: Active Medications Generic Name Dose Route Start Last Admin Trade Name Freq PRN Reason Stop Dose Admin Acetaminophen 650 mg 08/04/25 22:11 08/04/25 23:41 Acetaminophen Elixir 325 Mg/10.15 Ml Udc PO 650 mg Q4H PRN Administration Mild Pain (1-3) or Fever Amlodipine Besylate 10 mg 08/05/25 09:00 08/07/25 12:58 Amlodipine Besylate 10 Mg Tablet PO 10 mg DAILY LITO Administration Apixaban 5 mg 08/07/25 17:00 08/07/25 17:01 Apixaban 5 Mg Tablet PO 5 mg BID LITO Administration Dextrose 12.5 gm 08/04/25 16:37 Dextrose 50% 25 Gm/50 Ml Syringe IV PUSH PRN PRN Hypoglycemia Protocol Furosemide 40 mg 08/05/25 09:00 08/07/25 17:01 Furosemide Inj 40 Mg/4 Ml Vial IV PUSH 40 mg BID LITO Administration Glucagon 1 mg 08/04/25 16:37 Glucagon For Inj 1 Mg Vial IM PRN PRN Hypoglycemia Protocol Glucose 15 gm 08/04/25 16:37 Glucose Oral Gel 15 Gm Of Glucse In 37.5 Gm Tube PO PRN PRN Hypoglycemia Protocol Guaifenesin 1,200 mg 08/04/25 21:00 08/07/25 12:57 Guaifenesin 12 Hr 600 Mg Tabcr PO 1,200 mg Q12HR LITO Administration Guaifenesin 200 mg 08/04/25 22:08 Guaifenesin 200 Mg/10 Ml Udc PO Q4H PRN Cough Ceftriaxone Sodium 1 gm/ 50 mls @ 100 mls/hr 08/05/25 17:00 08/07/25 17:02 Sodium Chloride IVPB 100 mls/hr Q24H LITO Administration Azithromycin 500 mg/ Sodium 250 mls @ 250 mls/hr 08/05/25 17:00 08/07/25 17:02 Chloride IVPB 08/08/25 17:59 250 mls/hr Q24H LITO Administration Dextrose 1,000 mls @ 100 mls/hr 08/04/25 16:37 Dextrose 5% 1,000 Ml IVPB PRN PRN Hypoglycemia Protocol Metronidazole 500 mg in 100 mls @ 100 mls/hr 08/05/25 14:00 08/07/25 14:00 Flagyl 500 Mg/Iso Soln 100 Ml IVPB 100 mls/hr Q8HR LITO Administration Insulin Aspart 2 - 5 units 08/04/25 17:00 08/07/25 17:03 Insulin Aspart (*Bkc) 100 Units/Ml SUB-Q Not Given TIDWM LITO Protocol Insulin Glargine 14 units 08/04/25 21:00 08/06/25 21:35 Insulin Glargine (*Bkc) 100 Units/Ml 0.15 units/kg (14 units) 14 units SUB-Q Administration HS LITO Methimazole 10 mg 08/05/25 09:00 08/07/25 12:58 Methimazole 10 Mg Tab PO 10 mg DAILY LITO Administration Methocarbamol 500 mg 08/04/25 20:32 Methocarbamol 500 Mg Tablet PO QID PRN Spasms Mirtazapine 7.5 mg 08/04/25 23:05 08/06/25 21:34 Mirtazapine 7.5 Mg Tablet PO 7.5 mg HS LITO Administration Multivitamins/Minerals 1 tablet 08/05/25 09:00 08/07/25 17:01 Opti-Gen Tab PO 1 tablet BID LITO Administration Polyethylene Glycol 17 gm 08/05/25 09:00 08/07/25 12:56 Polyethylene Glycol 3350 17 Gm Powd.Pack PO 17 gm QAM LITO Administration Polyethylene Glycol 17 gm 08/06/25 12:52 Polyethylene Glycol 3350 17 Gm Powd.Pack PO QAM PRN Constipation Senna/Docusate Sodium 1 tab 08/04/25 21:00 08/06/25 21:35 Senna/Docusate Sodium Tablet PO 1 tab HS LITO Administration Terazosin HCl 4 mg 08/04/25 23:05 08/06/25 21:34 Terazosin Hcl 1 Mg Capsule PO 4 mg HS LITO Administration Venlafaxine HCl 75 mg 08/05/25 09:00 08/07/25 12:58 Venlafaxine Hcl 75 Mg Tablet PO 75 mg DAILY LITO Administration Radiology Results: ITS Impressions Chest CT 08/04/25 16:15 IMPRESSION: Large focus of right-sided bronchopneumonia. Bronchoscopy may be of benefit to further evaluate. Venous Doppler Study 08/05/25 10:23 IMPRESSION: 1. No deep venous thrombosis. Thoracentesis Ultrasound 08/07/25 10:22 IMPRESSION: 1. Successful ultrasound-guided thoracentesis yielding 1100 mL of brendon-colored fluid. Chest X-Ray 08/07/25 11:18 Impression: 1: Cardiomegaly with pulmonary edema. 2: Small right pleural effusion. Labs Labs: Laboratory Results - last 24 hr 08/06/25 08/07/25 08/07/25 20:29 05:02 08:12 WBC 8.8 RBC 4.33 Hgb 12.6 Hct 39.6 MCV 91.5 MCH 29.1 MCHC 31.8 L RDW 13.2 Plt Count 283 MPV 10.0 Immature Gran % (Auto) 0.3 Neut % (Auto) 71.2 Lymph % (Auto) 16.2 L Barton % (Auto) 9.2 H Eos % (Auto) 2.5 Baso % (Auto) 0.6 Lymph # (Auto) 1.42 Barton # (Auto) 0.8 H Eos # (Auto) 0.2 Baso # (Auto) 0.1 Abs Immat Gran (auto) 0.03 Absolute Neuts (auto) 6.3 Absolute Nucleated RBC 0.000 Nucleated RBC % 0.0 PT 14.3 INR 1.1 APTT 30.8 Sodium 135 L Potassium 3.3 L Chloride 96 L Carbon Dioxide 32 H Anion Gap 7 BUN 32 H Creatinine 2.10 H Estim Creat Clear Calc 22 Estimated GFR 23 L Glucose 144 H POC Capillary Glucose 238 H 154 H Calcium 8.7 Magnesium 2.4 H Total Bilirubin 0.2 AST 33 ALT 12 Alkaline Phosphatase 84 Lactate Dehydrogenase 132 Total Protein 7.1 Albumin 3.6 TSH (Reflex) 1.930 Thyroxine (T4) 5.81 Total T3 0.80 L Pleural Fluid Source Pleural Color Pleural Appearance Pleural pH Pleural RBC Pleural Nuc Cells Pleural Neutrophils Pleural Lymphocytes Pleural Monocytes Pleural Macrophages Pleural Mesothelial Pleural Total Protein 08/07/25 08/07/25 08/07/25 09:38 11:39 16:48 WBC RBC Hgb Hct MCV MCH MCHC RDW Plt Count MPV Immature Gran % (Auto) Neut % (Auto) Lymph % (Auto) Barton % (Auto) Eos % (Auto) Baso % (Auto) Lymph # (Auto) Barton # (Auto) Eos # (Auto) Baso # (Auto) Abs Immat Gran (auto) Absolute Neuts (auto) Absolute Nucleated RBC Nucleated RBC % PT INR APTT Sodium Potassium Chloride Carbon Dioxide Anion Gap BUN Creatinine Estim Creat Clear Calc Estimated GFR Glucose POC Capillary Glucose 141 H 190 H Calcium Magnesium Total Bilirubin AST ALT Alkaline Phosphatase Lactate Dehydrogenase Total Protein Albumin TSH (Reflex) Thyroxine (T4) Total T3 Pleural Fluid Source Pleural fluid Pleural Color Red Pleural Appearance Cloudy Pleural pH > 0.000 L Pleural RBC 08479 H Pleural Nuc Cells 1133 H Pleural Neutrophils 1 Pleural Lymphocytes 43 Pleural Monocytes 13 Pleural Macrophages 34 Pleural Mesothelial 9 Pleural Total Protein Cancelled
[2025-08-07 20:53] VITALS: BP 140/65; PULSE 97; RESP 16; TEMP 37.1; O2SAT 94
[2025-08-07] MEDS: MIRTAZAPINE 7.5 MG TABLET PO (22:13)
[2025-08-07] MEDS: TERAZOSIN HCL 1 MG CAPSULE 4 MG PO (22:13)
[2025-08-07] MEDS: SENNA/DOCUSATE SODIUM TABLET 1 TAB PO (22:13)
[2025-08-07] MEDS: INSULIN GLARGINE (*BKC) 100 UNITS/ML 14 UNITS SUB-Q (22:37)
[2025-08-08 06:00] VITALS: BP 135/60; PULSE 82; RESP 18; TEMP 36.7; O2SAT 91
[2025-08-08] MEDS: metroNIDAZOLE 500 MG/ISO 100ML 500 MG/100 ML BAG 100 MG IVPB (06:39)
--- NOTE | 2025-08-08 08:01 | PCOTNOTE ---
Patient refused treatment this session. Patient reports she is not doing well this morning. Pain from the procedure yesterday. RN notified. Obdulia states she would try later.
[2025-08-08 08:43] LABS: Hematocrit 40.7 % (37.0-47.0); Hemoglobin 13.2 g/dL (12.0-15.0); Mean Corpuscular HGB Conc 32.4 g/dl (32-36); Mean Corpuscular Hemoglobin 29.7 pg (26-34); Mean Corpuscular Volume 91.5 fl (80-100); Platelet Count Result 266 k/mm3 (150-375); Red Blood Count 4.45 M/mm3 (4.2-5.4); White Blood Count 10.6 K/mm3 (4.5-10.0)
[2025-08-08 09:12] LABS: Alanine Aminotransferase 14 U/L (6-35); Albumin Level 3.6 g/dL (3.5-5.1); Alkaline Phosphatase 73 U/L (38-126); Anion Gap 7 mmol/L (4-12); Aspartate Amino Transferase 32 U/L (14-36); Bilirubin,Total 0.6 mg/dL (0.2-1.3); Blood Urea Nitrogen 37 mg/dL (7-17); Calcium 8.7 mg/dL (8.4-10.2); Carbon Dioxide 33 mmol/L (22-30); Chloride 94 mmol/L (98-107); Estimated CRCL calculation 19 ml/min; Estimated Glomerular Filt Rate 20; Glucose 141 mg/dL (65-110); Potassium 3.4 mmol/L (3.4-5.0); Sodium 134 mmol/L (137-145); Total Protein 7.1 g/dL (6.3-8.2)
[2025-08-08] MEDS: VENLAFAXINE HCL 75 MG TABLET PO (09:52)
[2025-08-08] MEDS: APIXABAN 5 MG TABLET PO (09:52)
[2025-08-08] MEDS: OPTI-GEN TAB 1 TABLET PO (09:53)
[2025-08-08] MEDS: ACETAMINOPHEN ELIXIR 325 MG/10.15 ML UDC 650 MG PO (09:54)
--- NOTE | 2025-08-08 12:59 | PM.PNPUL ---
Progress Note: A&P Assessment and Plan (1) Acute respiratory failure with hypoxia: Code(s): J96.01 - Acute respiratory failure with hypoxia Status: Acute Assessment and Plan: Resolved. She does not use O2 at home; this admission, she required O2 at 3 L/minute to manage her acute hypoxia associated with the huge right pleural effusion; improved after large volume fluid removal, now on room air 91-94%. (2) Pleural effusion on right: Code(s): J90 - Pleural effusion, not elsewhere classified Status: Acute Assessment and Plan: Large right pleural effusion in the setting of possible cardiac dysfunction, has preserved EF 65-70% on an echo from Jun 2024. She has an elevated proBNP, 489, had similar episode a year ago. successful thoracentesis today 1100 mils removed, values similar to last year, 2200 rbc's, 1133 wbc's without lymphocyte predominance, mixed lymphocyte and pulmonary macrophages. This is not a pathogenic profile. (3) Obesity: Code(s): E66.9 - Obesity, unspecified Status: Acute Assessment and Plan: BMI is 36.9. says that she has gained 30 lb in the last few months. Plan plan: 1) Ok to go home, does not need pulmonary follow up. She is welcome to call office, but she is ambulance dependent for travel, and we no longer offer virtual visits. Thoracentesis results similar to last year, mildly elevated white blood cell count 1133, elevated RBC 22,000, last year was 28,000. Cytology was collected. The LDH and protein are pending. The pH was inadvertently reported as greater than 0, error.tomorrow. She restarted apixaban. 2) Increased activity. She has become recently immobile, has right hemiplegia and lost function on the left side due to deconditioning, and gained 30 lb in the last several months. 3) ABG shows metabolic alkalosis with respiratory compensation, not primary respiratory acidosis. Does not qualify for NIV. She would need real sleep testing as an outpatient may be home sleep test to start with. Getting into the sleep lab would be a big challenge because she is not mobile at all. 4) Extended respiratory pathogen panel ordered, no result, not sure this was sent but she does not appear to be infected. Reports of pneumonia in her chart are greatly over rated. She has recurrent right pleural effusion that is rather chronic, she has diastolic dysfunction and renal impairment. She looks like she has cardiorenal syndrome and with her creatinine rising she is not really a good candidate for diuretics currently. She has had CKD stage 3 or 3 for quite a while according to her . 5) She is non ambulatory, cannot perform a home O2 study. expect discharge tomorrow. Subjective Date/time seen: 08/08/25 12:59 Interval history: 08/05/2025; new; Obdulia Wyatt is a 75-year old woman who has an abnormal CT scan with a large right pleural effusion and compressive atelectasis. She was admitted yesterday Aug 04 about 1 pm, due to shortness of breath and decrease n saturation to 91% on room air, normally 98% on room air. Her saturation picks up better on her left hand. She had an ABG a year ago, had mild CO2 retention, pCO2 48. Her wbc on admission was 8.7 without a left shift, hemoglobin 12.5, hematocrit 39.2, platelets [id number]. Sodium 136, potassium 4.1, chloride 101, carbon dioxide 29, BUN 27, creatinine 1.87. Her CRP was elevated at 3.0, normal is less than 1.0. ProBNP elevated 489, normal is less than 100. She had a thoracentesis on July 19, 2024, a year ago, had lymphocyte predominant effusion with excessive red blood cells, the pH was greater than 7.50. No cytology was sent. She was admitted 08/04/25 from home with a 1 week history of shortness of breath, with a chest CT Showing a large right pleural effusion with compressive atelectasis. She has a small right upper and right lower lobe infiltrate. Radiologist suggesting bronchoscopy however there is significant pleural effusion compressing the lung tissue so bronchoscopy would be of limited value. She took her last Eliquis Aug 04. She has not had a sore throat, sputum production, fever, ear ache, has not been exposed to any sick contacts. She and her stay at home other than going to doctor visits. She was recently at a soccer game for her grandchild outside, not a risky situation as far as communicable diseases. She had a stroke February 2024, is hemiplegic on the right, and lost strength on the left foot over the last several months through being sedentary. She can no longer pivot weight. is not able to lift her as he once was, and on one occasion had to call his daughter to help move her from bed to chair or the other direction. She is depressed, had anti-depressants adjusted recently. Depression is getting better, she likes sweets, does not eat much in general. Elmer says that other than being hemiplegic, her mind is sharp, and she has no cognitive deficit. 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 They have 2 adult children. Sleep: She and her sleep in different rooms. She sleeps in a hospital bed with head elevated at least 45 *in family room, he is in a bedroom. She does not snore, although she wakes often at night. She had venlafaxine was adjusted, and she is sleeping better. Her normal bedtime is 10:00 p.m., she wakes around 6:00 a.m.. She does not have dreams at night. She does not feel particularly refreshed on waking. She urinates during the night. She wears adult diapers, this has been since her stroke. She has not been tested for sleep apnea. PMH: hypertension, CHF with preserved ejection fraction > 70%, February [address] 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 08/06; follow up hospital visit; ABG today at 5:27 am showed pH 7.42/ pCO2 50.7 / pO2 71.4 /HCO3 32.8 / Saturation 94.6% on 1 L/min. This shows a primary metabolic alkalosis with secondary respiratory acidosis. This is good news, she does not have hypercapnia, will not qualify for a non-invasive ventilator. She should have a sleep study as an out patient, consider HST. I spoke with the patient and her yesterday about this. Procalcitonin is 0.1 - this indicates no bacterial infection. She is on 3 antibiotics for suspected pneumonia. This negative PCT is convincing that she does not have bacterial pneumonia. Pleural fluid analysis will be helpful when available. She does not use O2 at home, required oxygen this admission due to large right effusion and diaphragm dysfunction. I do not see information about any testing on her diaphragm. 08/07; Had thoracentesis today, 1100 ml removed; CXR : showed no ptx afterwards; Impression: 1: Cardiomegaly with pulmonary edema. 2: Small right pleural effusion. Pleural fluid shows rbc 22,000, high and wbc 1133, minimally elevated. SHe has 43% lymphocytes, 13% monocytes, 34% macrophages. The pH was not reported. Saturation is 90-96% on room air. CXR post thoracentesis is better. She has an increase in her creatinine now 2.2 and has had stage 3 CKD for a while. 08/08; sitting up in bed, is present. She is on RA, back pain from thoracentesis insertion site is better. She still feels limited as far as being able to take a deep breath. DATA * 08/04/2025; chest CT; FINDINGS: LUNGS: Large simple appearing right pleural effusion. No tracheomalacia. No bronchiectasis. Minimal emphysematous changes. Minimal pulmonary fibrotic changes. Small right upper and right lower lobe infiltrates. HEART AND PERICARDIUM: Mild cardiomegaly. Small simple appearing pericardial effusion. IMPRESSION: Large focus of right-sided bronchopneumonia. Bronchoscopy may be of benefit to further evaluate. * ; LE Dopplers ; IMPRESSION: 1. No deep venous thrombosis. * Aug 04, 2025 white blood cell count 8.7, hemoglobin 12.5, hematocrit 39.2%, platelets 255 K, all normal values. Sodium 136, potassium 4.1, chloride 101, carbon dioxide 29, BUN 27, creatinine 1.87. Her CRP was elevated at 3.0, normal is less than 1.0. ProBNP elevated 489, normal is less than 100. * 07/17/2024 echo ; Complete two-dimensional, color flow and Doppler transthoracic echocardiogram is performed. 2. Left ventricular chamber dimension is normal. 3. Left ventricular systolic function is normal, estimated at 65-70%. 4. The left ventricular diastolic function is abnormal. 5. E/e' 23 is elevated. 6. Left atrial chamber dimension is moderately enlarged. 7. There is mild aortic valve sclerosis. 8. The mitral valve has severe calcified posterior annulus. 9. There is trivial pericardial effusion. Review of Systems Review of Systems: All systems reviewed & are unremarkable except as noted in HPI and below Exam Narrative: GEN: Alert, oriented, not in distress.Room air sat 91-94%. NECK: Trachea is midline CHEST: Equal air entry, symmetric excursion, MORE air movement in the right lung upper area, left side is the same, good air movement and clear. CV: Regular S1S2 no m/g/r Extremities : no clubbing, cyanosis, or edema. She has atrophy in the right foot. no calf tenderness. PSYCH: normal thought and speech. Objective Data Vital Signs Vital Signs: Vital Signs - 24 hr 08/07/25 14:00 08/07/25 20:00 08/07/25 20:53 Temperature 37.3 C 37.1 C Pulse Rate 95 97 Respiratory Rate 16 16 Blood Pressure 138/72 140/65 Pulse Oximetry 90 94 Oxygen Delivery Room Air 08/08/25 06:00 08/08/25 08:00 Temperature 36.7 C Pulse Rate 82 Respiratory Rate 18 Blood Pressure 135/60 Pulse Oximetry 91 Oxygen Delivery Room Air Intake/Output Intake/Output: Intake & Output 08/05/25 08/06/25 08/07/25 08/08/25 23:59 23:59 23:59 23:59 Intake Total 1999 1300 1700 480 Output Total 1400 1350 2250 350 Balance 600 -50 -550 130 Meds/Results Medications: Active Medications Generic Name Dose Route Start Last Admin Trade Name Freq PRN Reason Stop Dose Admin Acetaminophen 650 mg 08/04/25 22:11 08/08/25 09:54 Acetaminophen Elixir 325 Mg/10.15 Ml Udc PO 650 mg Q4H PRN Administration Mild Pain (1-3) or Fever Amlodipine Besylate 10 mg 08/05/25 09:00 08/08/25 09:52 Amlodipine Besylate 10 Mg Tablet PO 10 mg DAILY LITO Administration Apixaban 5 mg 08/07/25 17:00 08/08/25 09:52 Apixaban 5 Mg Tablet PO 5 mg BID LITO Administration Dextrose 12.5 gm 08/04/25 16:37 Dextrose 50% 25 Gm/50 Ml Syringe IV PUSH PRN PRN Hypoglycemia Protocol Furosemide 40 mg 08/05/25 09:00 08/07/25 17:01 Furosemide Inj 40 Mg/4 Ml Vial IV PUSH 40 mg On Hold: 08/08/25 09:00 BID LITO Administration Glucagon 1 mg 08/04/25 16:37 Glucagon For Inj 1 Mg Vial IM PRN PRN Hypoglycemia Protocol Glucose 15 gm 08/04/25 16:37 Glucose Oral Gel 15 Gm Of Glucse In 37.5 Gm Tube PO PRN PRN Hypoglycemia Protocol Guaifenesin 400 mg 08/08/25 00:00 08/08/25 06:40 Guaifenesin 200 Mg/10 Ml Udc PO 400 mg Q6HR LITO Administration Dextrose 1,000 mls @ 100 mls/hr 08/04/25 16:37 Dextrose 5% 1,000 Ml IVPB PRN PRN Hypoglycemia Protocol Insulin Aspart 2 - 5 units 08/04/25 17:00 08/08/25 12:46 Insulin Aspart (*Bkc) 100 Units/Ml SUB-Q Not Given TIDWM [facility] Protocol Insulin Glargine 14 units 08/04/25 21:00 08/07/25 22:37 Insulin Glargine (*Bkc) 100 Units/Ml 0.15 units/kg (14 units) 14 units SUB-Q Administration HS [facility] Levofloxacin 750 mg 08/08/25 13:30 Levofloxacin 750 Mg Tablet PO 08/08/25 13:31 ONCE ONE Levofloxacin 500 mg 08/10/25 09:00 Levofloxacin 500 Mg Tablet PO 08/10/25 09:01 ONCE ONE Methimazole 10 mg 08/05/25 09:00 08/08/25 09:52 Methimazole 10 Mg Tab PO 10 mg DAILY LITO Administration Methocarbamol 500 mg 08/04/25 20:32 08/08/25 09:56 Methocarbamol 500 Mg Tablet PO 500 mg QID PRN Administration Spasms Mirtazapine 7.5 mg 08/04/25 23:05 08/07/25 22:13 Mirtazapine 7.5 Mg Tablet PO 7.5 mg HS LITO Administration Multivitamins/Minerals 1 tablet 08/05/25 09:00 08/08/25 09:53 Opti-Gen Tab PO 1 tablet BID LITO Administration Polyethylene Glycol 17 gm 08/05/25 09:00 08/08/25 09:54 Polyethylene Glycol 3350 17 Gm Powd.Pack PO 17 gm QAM LITO Administration Polyethylene Glycol 17 gm 08/06/25 12:52 Polyethylene Glycol 3350 17 Gm Powd.Pack PO QAM PRN Constipation Senna/Docusate Sodium 1 tab 08/04/25 21:00 08/07/25 22:13 Senna/Docusate Sodium Tablet PO 1 tab HS LITO Administration Terazosin HCl 4 mg 08/04/25 23:05 08/07/25 22:13 Terazosin Hcl 1 Mg Capsule PO 4 mg HS LITO Administration Venlafaxine HCl 75 mg 08/05/25 09:00 08/08/25 09:52 Venlafaxine Hcl 75 Mg Tablet PO 75 mg DAILY LITO Administration Radiology Results: ITS Impressions Chest CT 08/04/25 16:15 IMPRESSION: Large focus of right-sided bronchopneumonia. Bronchoscopy may be of benefit to further evaluate. Venous Doppler Study 08/05/25 10:23 IMPRESSION: 1. No deep venous thrombosis. Thoracentesis Ultrasound 08/07/25 10:22 IMPRESSION: 1. Successful ultrasound-guided thoracentesis yielding 1100 mL of brendon-colored fluid. Chest X-Ray 08/07/25 11:18 Impression: 1: Cardiomegaly with pulmonary edema. 2: Small right pleural effusion. Labs Labs: Laboratory Results - last 24 hr 08/07/25 08/07/25 08/08/25 16:48 20:03 07:56 WBC RBC Hgb Hct MCV MCH MCHC RDW Plt Count MPV Sodium Potassium Chloride Carbon Dioxide Anion Gap BUN Creatinine Estim Creat Clear Calc Estimated GFR Glucose POC Capillary Glucose 190 H 201 H 140 H Calcium Total Bilirubin AST ALT Alkaline Phosphatase Total Protein Albumin 08/08/25 08/08/25 08:38 11:43 WBC 10.6 H RBC 4.45 Hgb 13.2 Hct 40.7 MCV 91.5 MCH 29.7 MCHC 32.4 RDW 13.6 Plt Count 266 MPV 9.8 Sodium 134 L Potassium 3.4 Chloride 94 L Carbon Dioxide 33 H Anion Gap 7 BUN 37 H Creatinine 2.35 H Estim Creat Clear Calc 19 Estimated GFR 20 L Glucose 141 H POC Capillary Glucose 189 H Calcium 8.7 Total Bilirubin 0.6 AST 32 ALT 14 Alkaline Phosphatase 73 Total Protein 7.1 Albumin 3.6
[2025-08-08 14:00] VITALS: BP 138/67; PULSE 90; RESP 16; TEMP 36.8; O2SAT 92
--- NOTE | 2025-08-08 15:04 | P.DS_ITS ---
DS: Admitting Diagnosis Discharge Date 08/08/2025 Admitting Diagnosis Shortness of breath DS: Discharge Diagnosis Discharge Diagnosis (1) Pleural effusion on right: Code(s): J90 - Pleural effusion, not elsewhere classified Status: Acute Assessment and Plan: Please refer to hospital course for brief summary Patient underwent a thoracentesis on 08/07 Will restart Eliquis (2) Acute CHF: Code(s): I50.9 - Heart failure, unspecified Status: Acute Assessment and Plan: No Pulm edema No diurectics for now monitor (3) Pneumonia: Code(s): J18.9 - Pneumonia, unspecified organism Status: Acute Assessment and Plan: CT Chest showed large right bronchopneumonia with large right pleural effusion F/u cultures Rocephin, Flagyl and Azithromycin Underwent thoracentesis Pulmonology following (4) Acute respiratory failure with hypoxia: Code(s): J96.01 - Acute respiratory failure with hypoxia Status: Acute Assessment and Plan: Likely secondary to pneumonia and large pleural effusion Continue abx as above resolved, now on room air (5) Type 2 diabetes mellitus: Code(s): E11.9 - Type 2 diabetes mellitus without complications Status: Acute Assessment and Plan: Felicita Cooper and SSI will bring in her food from home (6) Chronic renal insufficiency, stage III (moderate): Code(s): N18.3 - Chronic kidney disease, stage 3 (moderate) Status: Acute Assessment and Plan: Will monitor kidney function while diuresing (7) Constipation: Code(s): K59.00 - Constipation, unspecified Status: Acute Assessment and Plan: Per patient has very hard stools about every 4 days Senna MiraLax (8) Appetite disorder: Code(s): F50.9 - Eating disorder, unspecified Status: Acute Assessment and Plan: will bring in food for the patient Regular diet (9) Calf pain: Code(s): M79.669 - Pain in unspecified lower leg Status: Acute Assessment and Plan: Venous Doppler negative Robaxin Tylenol DS: Summary Hospital Course Hospital Course: 75-year-old female past medical history of diastolic dysfunction, CVA with right-sided deficits, DC secondary to massive pulmonary embolism, diabetes, CKD stage 3, hypertension hyperlipidemia presents the hospital with shortness of breath. Patient is bedbound/wheelchair-bound from her stroke. is at bedside and gives details about patient's history. He states that she short of breath with talking and that when he checked her vitals her pulse ox was only 91% when it is normally above 95 so he brought her into the hospital. Patient also complains of right calf pain she states this is new. Patient denies nausea vomiting or fever. states that the patient took her Eliquis this morning. Lab work in the ED shows sodium 136, creatinine of 1.88 which is below baseline, GFR 26, glucose of 241, CRP of 3.0, proBNP of 489. CT chest shows Large focus of right-sided bronchopneumonia. Bronchoscopy may be of benefit to further evaluate.She had a thoracentesis on July 19, 2024, a year ago, had lymphocyte predominant effusion with excessive red blood cells, the pH was greater than 7.50. No cytology was sent. Patient underwent a thoracentesis on 08/08/2025. Currently patient is feeling better. Patient is desperate to go home. Patient has a history of CVA which happened February 2024 with residual right-sided paralysis. Patient needs to follow- up with peanut shaker for the final results of the pleural fluid analysis. Patient will be discharged with levofloxacin 500 mg 1 time dose on 08/10/2025. Patient also needs to follow-up with the Nephrology for her CKD. Patient was started on Lasix during the admission but it has been stopped since patient had thoracentesis. On the day of discharge, the patient was seen and examined. Vital signs were stable. Physical exam were stable and labs were reviewed at length. Discharge instructions, medications, and follow-up appointments were discussed with the patient at length and all day questions were answered. ER warnings were given. Status at Discharge Cognitive/behavioral status at discharge: Stable Time Spent with Patient Time attestation: Total time spent providing and/or coordinating discharge services: 45 minutes Exam Narrative: General: well appearing, appears stated age. HEENT: normocephalic, atraumatic. Mucous membranes moist. EOMI, PERRLA, bilateral sclera anicteric, no conjunctival injection. Neck supple without JVD, lymphadenopathy, or bruit. Respiratory: Unable to talk in full sentences due to shortness of breath, expiratory wheezes Cardiovascular: Regular rate and rhythm, normal S1-S2 upon ascultation. No murmurs, rubs, or clicks. PMI is nondisplaced, capillary refill less than 3 second. Abdomen: Soft, round, no pulsatile masses, nondistended and nontender. No rebound, no guarding. No CVA tenderness, no hepatosplenomegaly. Bowel sounds present to all four quadrants. No high pitch or tinkling sounds, resonant to percussion. Extremities: No cyanosis, clubbing, or edema present. Pulses are palpable 2/2. Right upper extremity weak, left strong, right lower extremity flaccid, left strong Neuro: Alert and orientated x 4. PERRLA. Cranial nerves 2-12 intact without focal deficit. Skin: Warm, dry, and intact, without rash, erythema, or lesion. Psych: pleasant, cooperative, normal speech, normal affect, no hallucinations, no dysarthia 3 L nasal cannula DS: Data Data Completed and Pending Pending studies at discharge: Pending at discharge 08/06/25 19:20 Cytology [PTH] Routine Labs on day of discharge: Labs from last 24 hours 08/08/25 08/08/25 08/08/25 11:43 08:38 07:56 WBC 10.6 H RBC 4.45 Hgb 13.2 Hct 40.7 MCV 91.5 MCH 29.7 MCHC 32.4 RDW 13.6 Plt Count 266 MPV 9.8 Sodium 134 L Potassium 3.4 Chloride 94 L Carbon Dioxide 33 H Anion Gap 7 BUN 37 H Creatinine 2.35 H Estim Creat Clear Calc 19 Estimated GFR 20 L Glucose 141 H POC Capillary Glucose 189 H 140 H Calcium 8.7 Total Bilirubin 0.6 AST 32 ALT 14 Alkaline Phosphatase 73 Total Protein 7.1 Albumin 3.6 08/07/25 08/07/25 20:03 16:48 WBC RBC Hgb Hct MCV MCH MCHC RDW Plt Count MPV Sodium Potassium Chloride Carbon Dioxide Anion Gap BUN Creatinine Estim Creat Clear Calc Estimated GFR Glucose POC Capillary Glucose 201 H 190 H Calcium Total Bilirubin AST ALT Alkaline Phosphatase Total Protein Albumin Preliminary micro results at discharge 08/04/25 16:32 Blood Culture - Preliminary Blood 08/04/25 16:32 Blood Culture - Preliminary Blood 08/07/25 09:38 Acid Fast Bacilli Culture - Preliminary Pleural Fluid Discharge Plan Discharge Attending physician on discharge: Jose Powers Consulting providers: Robyn Hurley; Karla Granda Discharging Clinician: Jose Powers Anticipated Discharge Date/Time: 08/08/25 15:13 Patient Disposition: Home with Home Health Service Activity: as tolerated Diet: heart healthy Discharge Instructions: Per Care Coordination: [facility] has been arranged to follow at discharge. [facility] will follow for RN and PT/OT eval and treat. [facility] can be contacted at [phone]. Nursing please fax discharge paperwork to [phone]. Please follow-up with pulmonology for pleural fluid studies. Please take levofloxacin 500 mg on 08/10/2025 Please follow-up with her primary care physician within a week upon discharge In case of concerning symptoms please return to ED Patient Instructions: Antibiotic Form, Hypoxia (GEN), Pneumonia (GEN) Patient Language: Guatemalan Stand Alone Forms: General Discharge Information Follow-up/Referrals: Kayla Wayne MD [Primary Care Provider, Family Practice] Karla Granda MD [Physician, Pulmonology] Robyn Hurley DO [Physician, Cardiology] Discharge Medications: New polyethylene glycol 3350 [Miralax] 17 gram Powder In Packet 17 g PO QAM Qty: 10 0RF guaifenesin 100 mg/5 mL Liquid 400 mg PO Q6HR Qty: 30 0RF levofloxacin 500 mg tablet 500 mg PO DAILY Qty: 1 0RF Rx Instructions: Please take the tablet on 08/10/2025 Continued venlafaxine 75 mg tablet 75 mg PO DAILY MDD 150 terazosin 1 mg capsule 4 mg PO HS PreserVision AREDS-2 250-90-40-1 mg Tablet,Chewable 1 tablet PO QAM AND QPM mirtazapine [Remeron] 15 mg tablet 7.5 mg PO HS Qty: 45 2RF amlodipine 10 mg tablet 10 mg PO DAILY Qty: 90 3RF Eliquis 5 mg tablet 5 mg PO BID Qty: 60 4RF methimazole 5 mg tablet 10 mg PO DAILY 90 Days Qty: 180 2RF aspirin 81 mg tablet,delayed release (DR/EC) 81 mg PO DAILY Date of admission: 08/04/25 18:44 Primary Care Provider: Kayla Wayne Admitting Provider: Nicky Dupree Attending physician on admission: Nicky Dupree Condition: Serious
[2025-08-08 16:08] LABS: Albumin, Body Fluid 3.2 g/dL (Not Estab.); Glucose, Body Fluid 147 mg/dL (.); LD, Body Fluid 99 IU/L (.); Triglycerides, Body Fluid 39 mg/dL (Not Estab.)
[2025-08-10 15:09] LABS: Adenosine Deaminase RBC 380 mU/g Hb (400-900)
== END 2025-08-08 16:51 | disposition home health service (06) | DRG 291 ==
LOC: ANHED 15:06 → ANHIMU 17:51 → ANH3MED 08-06 15:09
PROVIDERS: Internal Medicine Critical Care Medicine; Nurse Practitioner Gerontology; Student in an Organized Health Care Education/Training Program; Admitting Provider Internal Medicine; Emergency Provider Emergency Medicine; PCP Family Medicine; Visit Provider General Practice
DX: I13.0 Hypertensive heart and chronic kidney disease with heart failure and stage 1 through stage 4 chronic kidney disease, or unspecified chronic kidney disease (principal); I50.31 Acute diastolic (congestive) heart failure; J18.0 Bronchopneumonia, unspecified organism; J96.01 Acute respiratory failure with hypoxia; J90 Pleural effusion, not elsewhere classified; I69.851 Hemiplegia and hemiparesis following other cerebrovascular disease affecting right dominant side; E87.3 Alkalosis; E11.22 Type 2 diabetes mellitus with diabetic chronic kidney disease; E78.2 Mixed hyperlipidemia; M79.661 Pain in right lower leg; I73.9 Peripheral vascular disease, unspecified; N18.30 Chronic kidney disease, stage 3 unspecified; E55.9 Vitamin D deficiency, unspecified; K59.00 Constipation, unspecified; R07.9 Chest pain, unspecified; R53.81 Other malaise; F50.9 Eating disorder, unspecified; F32.A Depression, unspecified; F41.9 Anxiety disorder, unspecified; Z74.1 Need for assistance with personal care; I25.2 Old myocardial infarction; Z99.3 Dependence on wheelchair; Z87.891 Personal history of nicotine dependence; Z79.01 Long term (current) use of anticoagulants; Z79.82 Long term (current) use of aspirin; Z86.711 Personal history of pulmonary embolism; Z68.36 Body mass index [BMI] 36.0-36.9, adult; Z86.718 Personal history of other venous thrombosis and embolism; E66.01 Morbid (severe) obesity due to excess calories
CPT/HCPCS: 32555; 36415; 36600; 71045; 71046; 71250; 80048; 80053; 82042; 82375; 82805; 82945; 82947; 82948; 83036; 83050; 83615; 83735; 83880; 83986; 84145; 84155; 84157; 84311; 84436; 84443; 84478; 84480; 85018; 85025; 85027; 85610; 85730; 86140; 87040; 87205; 87206; 88108; 88305; 88342; 89051; 92610; 93005; 93971; 96374; 97110; 97161; 97166; 97530; 99285; A9270; C8929; G0378; J0456; J0696; J1650; J1815; J1836; J1938; J2270; J7050; Q9957